=== PATIENT | female | born 1945 | race Caucasian/White ===

== ENCOUNTER → 2019-07-14 13:25 | Outpatient (CLI) | payer MEDICARE, SELFPAY ==
--- NOTE | ~2019-07-14 | DEXA_ITS ---
Bone Density Report Name: Milla Balderas Age: 73 Sex: Female Ethnicity: White Date of : 1945 Indication: postmenopausal; screening for osteoporosis; height loss; Referring Provider: PHYSICIAN NOT ON STAFF Study: Bone densitometry was performed. Exam Date: July 14, 2019 Accession number: [id number] Bone Density: Region BMD T-score Z-score Classification AP Spine (L1-L4) 1.031 -0.1 2.1 Normal Femoral Neck (Left) 0.635 -1.9 0.0 Osteopenia Total Hip (Left) 0.842 -0.8 0.8 Normal Femoral Neck (Right) 0.652 -1.8 0.2 Osteopenia Total Hip (Right) 0.894 -0.4 1.3 Normal Total Hip Mean 0.868 -0.6 1.1 Normal World Health Organization criteria for BMD impression classify patients as: Normal (T-score at or above -1.0), Osteopenia (T-score between -1.0 and -2.5), or Osteoporosis (T-score at or below -2.5). 10-year Fracture Risk(1): Major Osteoporotic Fracture 12% Hip Fracture 2.4% Reported Risk Factors: [place] (), Neck BMD=0.635, BMI=30.9 (1) FRAX(R) Version 3.08. Fracture probability calculated for an untreated patient. Fracture probability may be lower if the patient has received treatment. Previous Exams: Region Exam Age BMD T-score BMD Change BMD Change Date g/cm2 vs Baseline vs Previous AP Spine(L1-L4) 07/14/2019 73 1.031 -0.1 0.016 0.007 11/22/2014 68 1.025 -0.2 0.009 0.013 01/02/2012 66 1.012 -0.3 -0.004 -0.038* 12/23/2007 62 1.050 0.0 0.034 0.034 10/04/2002 56 1.016 -0.3 Total Hip(Left) 07/14/2019 73 0.842 -0.8 -0.095 -0.051* 11/22/2014 68 0.893 -0.4 -0.043 -0.067* 01/02/2012 66 0.960 0.1 0.024 0.063* 12/23/2007 62 0.897 -0.4 -0.039 -0.039 10/04/2002 56 0.936 0.0 Total Hip(Right) 07/14/2019 73 0.894 -0.4 -0.057 -0.020 11/22/2014 68 0.914 -0.2 -0.038 -0.057* 01/02/2012 66 0.971 0.2 0.020 0.048* 12/23/2007 62 0.924 -0.2 -0.028 -0.028 10/04/2002 56 0.952 0.1 *Denotes significance at 95% confidence level, LSC for AP Spine = 0.022 g/cm2, LSC for Total Hip = 0.027 g/cm2 Clinical Information Provided by Patient: Has used the following medications: Vitamin D Patient maximum height was 65.0 Menopause Age: 55 No regular weight bearing exercise Does not regularly consume dairy products Onse
--- NOTE | ~2019-07-14 | MM_ITS ---
EXAMINATION: MM screening [facility] BI w [place] HISTORY: Screening mammogram TECHNIQUE: Craniocaudal and mediolateral oblique 3-D tomosynthesis images were obtained and synthetic 2-D images were generated. CAD analysis was submitted and interpreted. COMPARISON: Comparison to multiple prior studies sequentially, with oldest reviewed study dated 09/2011. BREAST PARENCHYMAL COMPOSITION: There are scattered areas of fibroglandular density. FINDINGS: There is a new cluster of calcifications upper outer quadrant of the right breast. The left breast is stable without evidence for malignancy. IMPRESSION: 1. New cluster of nonspecific calcifications upper outer quadrant of the right breast. 2. Additional mammographic views and possible breast ultrasound are recommended. BI-RADS Category 0: Incomplete: Needs additional imaging evaluation. Reviewed, dictated and finalized at location D. IMPRESSION: 1. New cluster of nonspecific calcifications upper outer quadrant of the right breast. 2. Additional mammographic views and possible breast ultrasound are recommended . BI-RADS Category 0: Incomplete: Needs additional imaging evaluation.
== END ==
PROVIDERS: PCP Internal Medicine
DX: Z12.31 Encounter for screening mammogram for malignant neoplasm of breast (principal); M85.88 Other specified disorders of bone density and structure, other site; M81.0 Age-related osteoporosis without current pathological fracture; R92.8 Other abnormal and inconclusive findings on diagnostic imaging of breast; Z78.0 Asymptomatic menopausal state; M85.852 Other specified disorders of bone density and structure, left thigh; M85.851 Other specified disorders of bone density and structure, right thigh
CPT/HCPCS: 77063; 77067; 77080

== ENCOUNTER 2019-07-26 12:03 | Outpatient (CLI) | payer MEDICARE, SELFPAY ==
--- NOTE | ~2019-07-26 | MM_ITS ---
EXAMINATION: MM diagnostic mammo unilat RT HISTORY: Indeterminate right breast calcifications on screening mammogram TECHNIQUE: Additional views of the right breast were performed. CAD analysis was submitted and interp reted. COMPARISON: 07/14/2019, 09/24/2016,11/22/2014 FINDINGS: There are grouped calcifications in the middle third of the upper breast at the 12:00 locat ion approximately 7.5 cm from the nipple which appear pleomorphic in morphology. No suspicious mass o r architectural distortion is identified. IMPRESSION: 1. Suspicious right breast calcifications. 2. Stereotactic biopsy is recommended. BI-RADS category 4, suspicious findings. Reviewed, dictated and finalized at location A.
== END 2019-07-26 12:04 | disposition home or self-care (01) ==
PROVIDERS: PCP Internal Medicine
DX: R92.8 Other abnormal and inconclusive findings on diagnostic imaging of breast (principal)
CPT/HCPCS: 77065

== ENCOUNTER 2020-07-27 13:43 | Outpatient (CLI) | payer MEDICARE, SELFPAY ==
[2020-07-27 14:18] LABS: Basophils Percent Auto 0.2 % (0.2-1.2); Eosinophils Absolute Auto 0.2 K/mm3 (0-0.3); Eosinophils Percent Auto 2.1 % (0-4.4); Hematocrit 37.6 % (37.0-47.0); Hemoglobin 12.3 g/dL (12.0-15.0); Immature Granulocyte Absolute 0.02 K/mm3 (0.00-0.031); Immature Granulocyte Percent A 0.2 % (0-0.5); Lymphocytes Absolute Auto 1.65 K/mm3 (0.9-3.2); Lymphocytes Percent Auto 19.6 % (18.3-44.2); Mean Corpuscular HGB Conc 32.7 g/dl (32-36); Mean Corpuscular Hemoglobin 30.2 pg (26-34); Mean Corpuscular Volume 92.4 fl (80-100); Mean Platelet Volume 9.8 fl (7.4-10.4); Monocytes Absolute Auto 0.7 K/mm3 (0.1-0.6); Monocytes Percent Auto 8.8 % (2.6-8.5); Neutrophils Absolute Auto 5.8 K/mm3 (1.3-6.7); Neutrophils Percent Auto 69.1 % (45.5-73.1); Platelet Count Result 239 k/mm3 (150-375); Red Blood Count 4.07 M/mm3 (4.2-5.4); Red Cell Distribution Width 12.9 % (11.5-14.5); White Blood Count 8.4 K/mm3 (4.5-10.0)
[2020-07-27 14:31] LABS: Alanine Aminotransferase 20 U/L (4-35); Albumin Level 4.5 g/dL (3.5-5.1); Alkaline Phosphatase 52 U/L (38-126); Anion Gap 6 mmol/L (8-16); Aspartate Amino Transferase 31 U/L (14-36); Bilirubin,Total 0.4 mg/dL (0.2-1.3); Blood Urea Nitrogen 25 mg/dL (7-17); Calcium 9.3 mg/dL (8.4-10.2); Carbon Dioxide 31 mmol/L (22-30); Chloride 103 mmol/L (98-107); Cholesterol 141 mg/dL (0-200); Estimated Glomerular Filt Rate > 60; Glucose 84 mg/dL (65-105); HDL Direct 31 mg/dL; Potassium 5.2 mmol/L (3.4-5.0); Sodium 140 mmol/L (137-145); Triglycerides 168 mg/dL (<150)
[2020-07-27 14:42] LABS: LDL Cholesterol Direct 77 mg/dL
[2020-07-27 20:11] LABS: Folic Acid > 20.0 ng/mL (2.76->20)
[2020-07-27 21:50] LABS: Thyroid Stimulating Hormone 0.359 uIU/mL (0.465-4.680)
== END 2020-07-27 13:44 | disposition home or self-care (01) ==
PROVIDERS: PCP Internal Medicine; Referring Provider Internal Medicine Cardiovascular Disease; Visit Provider Internal Medicine
DX: E53.8 Deficiency of other specified B group vitamins (principal); R53.83 Other fatigue; E78.5 Hyperlipidemia, unspecified; I10 Essential (primary) hypertension
CPT/HCPCS: 36415; 80053; 80061; 82607; 82746; 84443; 85025

== ENCOUNTER 2021-09-12 09:37 | Outpatient (CLI) | payer MEDICARE, SELFPAY ==
[2021-09-12 09:58] LABS: Basophils Percent Auto 0.6 % (0.2-1.2); Eosinophils Absolute Auto 0.2 K/mm3 (0-0.3); Eosinophils Percent Auto 3.6 % (0-4.4); Hematocrit 38.8 % (37.0-47.0); Hemoglobin 12.4 g/dL (12.0-15.0); Immature Granulocyte Absolute 0.03 K/mm3 (0.00-0.031); Immature Granulocyte Percent A 0.6 % (0-0.5); Lymphocytes Absolute Auto 1.21 K/mm3 (0.9-3.2); Lymphocytes Percent Auto 22.7 % (18.3-44.2); Mean Corpuscular Hemoglobin 30.4 pg (26-34); Mean Corpuscular Volume 95.1 fl (80-100); Mean Platelet Volume 9.1 fl (7.4-10.4); Monocytes Absolute Auto 0.4 K/mm3 (0.1-0.6); Monocytes Percent Auto 7.3 % (2.6-8.5); Neutrophils Absolute Auto 3.5 K/mm3 (1.3-6.7); Neutrophils Percent Auto 65.2 % (45.5-73.1); Platelet Count Result 297 k/mm3 (150-375); Red Blood Count 4.08 M/mm3 (4.2-5.4); White Blood Count 5.3 K/mm3 (4.5-10.0)
[2021-09-12 10:08] LABS: Alanine Aminotransferase 20 U/L (6-35); Albumin Level 4.4 g/dL (3.5-5.1); Alkaline Phosphatase 67 U/L (38-126); Anion Gap 7 mmol/L (8-16); Aspartate Amino Transferase 32 U/L (14-36); Bilirubin,Total 0.3 mg/dL (0.2-1.3); Blood Urea Nitrogen 16 mg/dL (7-17); Calcium 8.9 mg/dL (8.4-10.2); Carbon Dioxide 26 mmol/L (22-30); Chloride 106 mmol/L (98-107); Cholesterol 150 mg/dL (0-200); Estimated Glomerular Filt Rate > 60; Glucose 103 mg/dL (65-110); HDL Direct 29 mg/dL; Potassium 4.5 mmol/L (3.4-5.0); Sodium 139 mmol/L (137-145); Triglycerides 162 mg/dL (<150)
[2021-09-12 10:19] LABS: LDL Cholesterol Direct 82 mg/dL
[2021-09-12 10:39] LABS: Thyroid Stimulating Hormone 0.904 uIU/mL (0.465-4.680)
[2021-09-12 10:49] LABS: Free T4 Free Thyroxine 1.24 ng/mL (0.78-2.19)
[2021-09-12 11:17] LABS: Folic Acid > 20.0 ng/mL (2.76->20); Vitamin B12 > 1000.0 pg/mL (239-931)
[2021-09-16 05:27] LABS: Thyroglobulin 13.4 ng/mL (2.8-40.9); Thyroglobulin Antibodies <1 IU/mL (<=1)
== END 2021-09-12 09:38 | disposition home or self-care (01) ==
LOC: ANHLAB 09:45
PROVIDERS: PCP Internal Medicine; Visit Provider Internal Medicine
DX: R79.89 Other specified abnormal findings of blood chemistry (principal); E78.5 Hyperlipidemia, unspecified; R53.83 Other fatigue; M54.9 Dorsalgia, unspecified; I10 Essential (primary) hypertension
CPT/HCPCS: 36415; 80053; 80061; 82607; 82746; 84432; 84439; 84443; 85025; 86800

== ENCOUNTER → 2023-07-01 10:27 | Outpatient (CLI) | payer MEDICARE, SELFPAY ==
--- NOTE | ~2023-07-01 | DEXA_ITS ---
Bone Density Report Name: ROBINA LEWIS Age: 77 Sex: Female Ethnicity: White Date of : 1945 Indication: postmenopausal; screening for osteoporosis; height loss; Referring Provider: Peyton Gresham Study: Bone densitometry was performed. Exam Date: July 01, 2023 Accession number: [id number] Bone Density: Region BMD T-score Z-score Classification AP Spine (L1-L4) 0.973 -0.7 1.8 Normal Femoral Neck (Left) 0.663 -1.7 0.5 Osteopenia Total Hip (Left) 0.866 -0.6 1.2 Normal Femoral Neck (Right) 0.588 -2.3 -0.2 Osteopenia Total Hip (Right) 0.834 -0.9 1.0 Normal Total Hip Mean 0.850 -0.8 1.1 Normal World Health Organization criteria for BMD impression classify patients as: Normal (T-score at or above -1.0), Osteopenia (T-score between -1.0 and -2.5), or Osteoporosis (T-score at or below -2.5). 10-year Fracture Risk(1): Major Osteoporotic Fracture 15% Hip Fracture 4.1% Reported Risk Factors: [place] (), Neck BMD=0.588, BMI=33.1 (1) FRAX(R) Version 3.08. Fracture probability calculated for an untreated patient. Fracture probability may be lower if the patient has received treatment. Previous Exams: Region Exam Age BMD T-score BMD Change BMD Change Date g/cm2 vs Baseline vs Previous AP Spine(L1-L4) 07/01/2023 77 0.973 -0.7 -0.043 -0.059* 07/14/2019 73 1.031 -0.1 0.016 0.007 11/22/2014 68 1.025 -0.2 0.009 0.013 01/02/2012 66 1.012 -0.3 -0.004 -0.038* 12/23/2007 62 1.050 0.0 0.034 0.034 10/04/2002 56 1.016 -0.3 Total Hip(Left) 07/01/2023 77 0.866 -0.6 -0.070 0.024 07/14/2019 73 0.842 -0.8 -0.095 -0.051* 11/22/2014 68 0.893 -0.4 -0.043 -0.067* 01/02/2012 66 0.960 0.1 0.024 0.063* 12/23/2007 62 0.897 -0.4 -0.039 -0.039 10/04/2002 56 0.936 0.0 Total Hip(Right) 07/01/2023 77 0.834 -0.9 -0.118 -0.060* 07/14/2019 73 0.894 -0.4 -0.057 -0.020 11/22/2014 68 0.914 -0.2 -0.038 -0.057* 01/02/2012 66 0.971 0.2 0.020 0.048* 12/23/2007 62 0.924 -0.2 -0.028 -0.028 10/04/2002 56 0.952 0.1 *Denotes significance at 95% confidence level, LSC for AP Spine = 0.022 g/cm2, LSC for Total Hip = 0.027 g/cm2 Clinical Information Provided by Patient:
== END ==
PROVIDERS: PCP Internal Medicine
DX: Z13.820 Encounter for screening for osteoporosis (principal); M85.89 Other specified disorders of bone density and structure, multiple sites; Z78.0 Asymptomatic menopausal state
CPT/HCPCS: 77080

== ENCOUNTER 2024-01-01 09:27 | Outpatient (CLI) | payer MEDICARE, SELFPAY ==
[2024-01-01 09:59] LABS: Basophils Percent Auto 0.6 % (0.2-1.2); Eosinophils Absolute Auto 0.2 K/mm3 (0-0.3); Eosinophils Percent Auto 3.4 % (0-4.4); Hematocrit 39.5 % (37.0-47.0); Hemoglobin 13.1 g/dL (12.0-15.0); Immature Granulocyte Absolute 0.02 K/mm3 (0.00-0.031); Immature Granulocyte Percent A 0.3 % (0-0.5); Lymphocytes Absolute Auto 1.17 K/mm3 (0.9-3.2); Lymphocytes Percent Auto 17.8 % (18.3-44.2); Mean Corpuscular HGB Conc 33.2 g/dl (32-36); Mean Corpuscular Hemoglobin 30.8 pg (26-34); Mean Corpuscular Volume 92.9 fl (80-100); Mean Platelet Volume 10.5 fl (7.4-10.4); Monocytes Absolute Auto 0.5 K/mm3 (0.1-0.6); Monocytes Percent Auto 7.3 % (2.6-8.5); Neutrophils Absolute Auto 4.6 K/mm3 (1.3-6.7); Neutrophils Percent Auto 70.6 % (45.5-73.1); Platelet Count Result 268 k/mm3 (150-375); Red Blood Count 4.25 M/mm3 (4.2-5.4); Red Cell Distribution Width 13.2 % (11.5-14.5); White Blood Count 6.6 K/mm3 (4.5-10.0)
[2024-01-01 10:17] LABS: Alanine Aminotransferase 24 U/L (6-35); Albumin Level 4.5 g/dL (3.5-5.1); Alkaline Phosphatase 64 U/L (38-126); Anion Gap 12 mmol/L (4-12); Aspartate Amino Transferase 31 U/L (14-36); Bilirubin,Total 0.5 mg/dL (0.2-1.3); Blood Urea Nitrogen 15 mg/dL (7-17); Calcium 9.1 mg/dL (8.4-10.2); Carbon Dioxide 23 mmol/L (22-30); Chloride 103 mmol/L (98-107); Cholesterol 139 mg/dL (0-200); Estimated Glomerular Filt Rate > 60; Glucose 115 mg/dL (65-110); HDL Direct 27 mg/dL; Potassium 4.4 mmol/L (3.4-5.0); Sodium 138 mmol/L (137-145); Triglycerides 210 mg/dL (<150)
[2024-01-01 10:28] LABS: LDL Cholesterol Direct 81 mg/dL
[2024-01-01 11:20] LABS: Folic Acid 13.3 ng/mL (2.76->20); Vitamin B12 > 1000.0 pg/mL (239-931)
== END 2024-01-01 09:28 | disposition home or self-care (01) ==
LOC: ANHLAB 09:33
PROVIDERS: PCP Internal Medicine; Visit Provider Internal Medicine
DX: E78.5 Hyperlipidemia, unspecified (principal); I10 Essential (primary) hypertension; R53.83 Other fatigue; R79.89 Other specified abnormal findings of blood chemistry
CPT/HCPCS: 36415; 80053; 80061; 82607; 82746; 83735; 84443; 85025

== ENCOUNTER 2024-02-04 13:52 | Outpatient (CLI) | payer MEDICARE, SELFPAY | END 2024-02-04 13:53 | disposition home or self-care (01) | PROVIDERS: PCP Internal Medicine | DX: R35.0 Frequency of micturition (principal) | CPT/HCPCS: 87077; 87086; 87186 ==

== ENCOUNTER 2024-04-30 10:23 | Outpatient (CLI) | payer MEDICARE, SELFPAY ==
--- NOTE | ~2024-04-30 | XR_ITS ---
XR chest 2V Ordering provider: Schuyler Mercedes, History: 78 years Female with . SHORTNESS OF BREATH ON EXERTION . Comparison: None. FINDINGS: MEDIASTINUM: The cardiac silhouette is not enlarged. LUNGS: No infiltrates, effusions or pneumothorax. Prominent bronchovascular markings in the lower lobes which may indicate early pneumonia. Follow-up a dvised. OTHER: No free air under the diaphragm. Degenerative changes of the spine. IMPRESSION: Prominent markings in the lower lobes which may indicate early pneumonia. Follow-up advised. Reviewed, dictated and finalized at location A. 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 Follo w-up advised.
[2024-04-30 11:37] LABS: NT Pro B Type Natriuretic Pept 28 pg/mL (19.9-100)
== END 2024-04-30 10:24 | disposition home or self-care (01) ==
PROVIDERS: PCP Internal Medicine; Visit Provider Internal Medicine Cardiovascular Disease
DX: E78.2 Mixed hyperlipidemia (principal); I10 Essential (primary) hypertension; R06.02 Shortness of breath; R09.89 Other specified symptoms and signs involving the circulatory and respiratory systems; R60.0 Localized edema
CPT/HCPCS: 36415; 71046; 83880

== ENCOUNTER 2024-06-28 10:52 | Outpatient (CLI) | payer MEDICARE, SELFPAY | END 2024-06-28 10:53 | disposition home or self-care (01) | PROVIDERS: PCP Internal Medicine; Visit Provider Internal Medicine | DX: R05.9 Cough, unspecified (principal) | CPT/HCPCS: 71046 ==

== ENCOUNTER 2024-11-26 20:41 | Emergency (ER) | payer MEDICARE, SELFPAY ==
--- NOTE | ~2024-11-26 | CT_ITS ---
EXAMINATION: CTA chest abdomen pelvis DATE: 11/26/2024 22:14 INDICATION: epigastric pain going to back . TECHNIQUE: Computed tomography angiography of the chest, abdomen, and pelvis was performed with 100 m L Omnipaque-350 intravenous contrast, in the arterial phase. Automated exposure control and iterative reconstruction technique were employed. The dose-length product was 657.86 mGy-cm. COMPARISON: None FINDINGS: CHEST: Thoracic aorta: No significant dilation. No dissection. Normal arch anatomy. Mild atherosclerotic manjit cification Lung parenchyma and airways: Dependent atelectasis. Scattered sub-6 mm pulmonary nodules. Patent airw ays. Thoracic inlet, axillae and chest wall: Subcentimeter thyroid hypodensities that require no additiona l evaluation at this time. No axillary lymphadenopathy. Mediastinum: No mass or lymphadenopathy. Heart and pericardium: Cardiomegaly. Mild aortic valve calcification. No pericardial effusion. Coronary artery calcifications: Mild. Pleura: No effusion or mass. Thoracic bones: No acute osseous finding in the chest. ABDOMEN/PELVIS: Liver: Enlarged. Biliary/Gallbladder: Gallbladder is distended. No inflammatory change, wall thickening, or stones. No bile duct dilation. Pancreas: No mass or duct dilation. Spleen: Normal. Adrenals:1.6 cm indeterminate density left adrenal lesion. Normal right adrenal Kidneys: Cortical thinning. Right upper pole scarring. No suspicious mass or hydronephrosis. GI tract: Small hiatal hernia. Mild distal esophageal and gastric wall edema. Small uncomplicated duo denal diverticulum. No small or large bowel dilation. Appendix not confidently visualized Diverticulo sis without diverticulitis. Mesentery/Peritoneum: No ascites, mass, or free air. Retroperitoneum: No mass Atherosclerotic calcifications of intra-abdominal arterial vessels. Retroaor tic left renal vein. Pelvis: Normal urinary bladder. Absent uterus. Bilateral ovaries not confidently identified. Soft Tissues: Small uncomplicated fat-containing umbilical hernia. Abdominopelvic bones: No acute osseous finding in the abdomen/pelvis. Severe multilevel lumbar degen erative disc disease. Lumbar scoliosis. Grade 1 anterolisthesis at L4-5. Severe central canal stenosi s at L4-5 secondary to degenerative changes. IMPRESSION: No aortic dissection or aneurysm. Scattered sub-6 mm pulmonary nodules, consider an optional low-dose noncontrast CT of the chest in on e year if the patient is at high risk. Hepatomegaly. Gallbladder hydrops without inflammatory change. May be secondary to obstruction or fasting. 1.6 cm indeterminate density left adrenal lesion, probably benign, consider 12 month follow-up adrena l CT, unless there is a history of malignancy. Mild esophagitis/gastritis. Reviewed[facility] IMPRESSION: No aortic dissection or aneurysm. Scattered sub-6 mm pulmonary nodules, consider an optional low-dose noncontrast CT of the chest in one year if the patient is at high risk. Hepatomegaly. Gallbladder hydrops without inflammatory change. May be secondary to obstructio n or fasting. 1.6 cm indeterminate density left adrenal lesion, probably benign, consider 12 month follow-up adrenal CT, unless there is a history of malignancy. Mild esophagitis/gastritis.
--- OUTSIDE RECORDS SUMMARY | 2024-11-26 20:43 | XMS_ITS | Clinical Summary ---
Author Organization 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 Medications Cholecalciferol , Vitamin D3, (VITAMIN D3) 1,000 unit Oral Tab Take 1,000 Units by mouth 2 times daily. Active ascorbic acid (VITAMIN C) 1,000 mg Oral Tab Take 1,000 mg by mouth 2 times daily. Active OTHER Juice Plus Active CYCLOSPORINE (RESTASIS OP) by Ophthalmic route daily. Active pravastatin (PRAVACHOL) 20 mg tablet TAKE 1 TABLET BY MOUTH EVERY EVENING 30 Tab 5 5 Active Active Problems Patient Care Coordination No te Formatting of this note migh t be different from the original. [place] Dr. Schuyler Mercedes Problem Noted Date Diagnosed Date Obesity, unspecified 09/04/2012 Essential hypertension, benign 08/23/2011 Hyperlipidemia Diabetes mellitus, type 2 Overview (07/05/2010): Borderline Shortness of breath Overview (07/05/2010): Exertional shortness of breath with a negative stress test in 2002. Resolved Problems Problem Noted Date Diagnosed Date Resolved Date Labile diastolic hypertension 08/23/2011 Family History Medical History Relation Name Comments Heart Surgery Father CABG in his 50 's, with repeat in his 60's, Diabetes Mother Alive Relation Name Status Comments Father (Age 75) Mother Alive Social History Tobacco Use Types Packs/Day Years Used Date Smoking Tobacco: Never Alcohol Use Standard Drinks/Week Comments Yes 0 (1 standard drink = 0.6 oz pur e alcohol) She takes alcohol rarely. 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 Not on file Not on file Not on file Last Filed Vital Signs Vital Sign Reading Time Taken Comments Blood Pressure 132/76 10/15/2013 10:24 AM CDT Pulse 83 10/15/2013 10:24 AM CDT Temperature - - Respiratory Rate 16 09/04/2012 11:18 AM CDT Oxygen Saturation 95% 09/04/2012 11:18 AM CDT Inhaled Oxygen Concentration - - Weight 87 kg (191 lb 12.8 oz) 10/15/2013 10:24 A M CDT Height 165.1 cm (5' 5) 10/15/2013 10:24 AM CDT Body Mass Index 31.92 10/15/2013 10:24 AM CDT Plan of Treatment Health Maintenance Due Date Last Done Comments DIABETES ANNUAL FOOT EXAM 1964 DIABETES ANNUAL RETINAL EXAM 1964 DIABETES MICROALBUMIN ANNUAL SCREEN 1964 DTAP/TDAP/TD VACCINES (1 - Tdap) 1965 PNEUMOCOCCAL VACCINE 50+ YEA RS (1 of 2 - PCV) 1965 ZOSTER VACCINE (1 of 2) 1996 OSTEOPOROSIS SCREENING 12/01/2011 DIABETES HBA1C Q 6 MONTHS 04/06/2014 10/05/2013 LDL CHOLESTEROL ANNUAL 10/05/2014 4, 10/05/2013, 08/24/2012, Additional history exists RSV VACCINE (60+ or ) (1 - 1-dose 75+ series) 2021 INFLUENZA VACCINE (#1) 2024 Procedures Procedure Name Priority Date/Time Associated Diagnosis Comments LIPID PANEL Routine 10/05/2013 8:32 AM CDT HEMOGLOBIN A1C Routine 10/05/2013 8:29 AM CDT from Last 3 Months or Most Recently Relevant to Health Maintenance Results * (ABNORMAL) LIPID PANEL (10/05/2013 8:32 AM CDT) CHOLESTEROL 172 125 - 200 mg/dL [facility] HDL 32(L) > OR = 46 mg/dL [facility] TRIGLYCERIDE 157(H) <150 mg/dL [facility] LDL CALCULATED 109 <130 mg/dL (calc) [facility] Comment: Desirable range <100 mg/dL for patients with CHD or diabetes and <70 mg/dL for diabetic patients with known heart disease. CHOL/HDL RATIO 5.4(H) < OR = 5.0 (calc) [facility] TOTAL NON-HDL CHOL(LDL+VLDL) 140 mg/dL (calc) [facility] Comment: Target for non-HDL cholesterol is 30 mg/dL higher than LDL cholesterol target. Test Performed at: [facility] [place] [address] JUANA LAY DO,MPH 10/05/2013 8:32 AM CDT Schuyler Mercedes MD CHEMISTRY ORDERABLES Final Res ult INTERFACE SYSTEM Refer to clinic/hospital department [facility] [address] [place] [address] * (ABNORMAL) HEMOGLOBIN A1C (10/05/2013 8:29 AM CDT) Pathologist [facility] HEMOGLOBIN A1C 6.0(H) <5.7 % of total Hgb [facility] Comment: According to ADA guidelines, hemoglobin A1c <7.0% represents optimal control in non- diabetic patients. Different metrics may apply to specific patient populations. Standards of Medical Care in Diabetes-2013. Diabetes Care. 2013;36:s11-s66 For the purpose of screening for the presence of diabetes <5.7% Consistent with the absence of diabetes 5.7-6.4% Consistent with increased risk for diabetes (prediabetes) >or=6.5% Consistent with diabetes This assay result is consistent with an increased risk of diabetes. Currently, no consensus exists for use of hemoglobin A1c for diagnosis of diabetes for children. Test Performed at: [facility] [id number] JUANA LAY DO,MPH 10/05/2013 8:29 AM CDT us Historical Provider CHEMISTRY ORDERABLES Final R esult INTERFACE SYSTEM Refer to clinic/hospital department [facility] [address] [place] [address] from Last 3 Months or Most Recently Relevant to Health Maintenance Insurance MEDICARE PART A AND B [employer] PPO Care Teams Band Machine Operator Relationship Specialty Start Date End Date Karthik Muñoz DO [address] [facility] [address] [place] [address] PCP - General Internal Medicine 07/03/10
--- OUTSIDE RECORDS SUMMARY | 2024-11-26 20:43 | XMS_ITS | Clinical Summary ---
Author Organization [facility] Address [address] [place] [address] Care Team Providers Care Bus Repair Supervisor Name Role Phone Heber Boss DO Primary Care Provider [phone] Allergies Active Allergy Reactions Criticality Noted Date Comments Lisinopril Cough Low 08/30/2019 Medications pravastatin (PRAVACHOL) 20 mg tabletIndicatio ns:hyperlipidem ia Take 1 tablet (20 mg total) by mouth nightly 5 Active fluticasone propionate (FLONASE) 50 mcg/actuation nasal sprayIndication s:Allergic Rhinitis Administer 1 spray into each nostril as needed 0 Active cyanocobalamin (Vitamin B-12) 1,000 mcg tabletIndicatio ns:Prevention of Vitamin B12 Deficiency Take 1 tablet (1,000 mcg total) by mouth every morning Active ergocalciferol, vitamin D2, (VITAMIN D2 ORAL) Take by mouth Active losartan (COZAAR) 100 mg tablet Take 1 tablet (100 mg total) by mouth daily 4 Active estradioL (Estrace) 0.01 % (0.1 mg/gram) vaginal creamIndication s:Vaginal atrophy Apply 1/4 applicator (1g) to the vagina twice weekly. 42.5 g 3 4 Active Active Problems Problem Noted Date Diagnosed Date Tubular adenoma of colon 06/07/2022 Overview (06/07/2022): 2016 12 mm sigmoid Tubular adenoma 2022 4 mm polyp removed, path not retrieved but likely Tubular adenoma Recommend repeat colonoscopy in 7 years Postoperative state 01/22/2022 Uterovaginal prolapse, incomplete 06/06/2021 Assessment & Plan (06/06/2021 5:16 PM TRASH HAULER): - she was refit with a #3 [place] at today's visit - she was previously able to remove/insert pessary independently and was encouraged to do so 1-2 times per week. May use dental floss to aid in removal, if desired. - she is interested in surgical correction, she is sexually active. Surgical handouts provided and she was encouraged to schedule follow up with Dr. Srinivasan to discuss. - she will return in 2-4 weeks for pessary check and to evaluate patient's satisfaction with support. Mixed incontinence 06/06/2021 Assessment & Plan (06/06/2021 5:13 PM TRASH HAULER): - will reassess urinary symptoms at pessary follow up as symptoms worsened after she has had the pessary out - a urine culture is being sent to rule out a UTI as contributing factor Incomplete bladder emptying 06/06/2021 Assessment & Plan (06/06/2021 5:11 PM TRASH HAULER): - normal PVR at today's visit after fit with pessary Urinary frequency 06/06/2021 Vaginal atrophy 06/06/2021 Assessment & Plan (06/06/2021 5:11 PM TRASH HAULER): - continue twice weekly vaginal estrogen Pelvic floor dysfunction 06/06/2021 Assessment & Plan (06/06/2021 5:11 PM TRASH HAULER): - we discussed having her see a PFPT to address her pelvic floor symptoms. Patient will consider and let us know if she would like to pursue. Handout on PFPT provided. Diabetes mellitus, type 2 04/11/2020 Overview (04/11/2020): Borderline Hyperlipidemia 04/11/2020 Abnormal mammogram with microcalcification 08/29 Mixed dyslipidemia 11/09/2014 Shortness of breath 11/09/2014 Overview (06/06/2021): Exertional shortness of breath with a negative stress test in 2002. Exertional shortness of breath with a negative stress test in 2002. Exertional shortness of breath with a negative stress test in 2002. Overview: Exertional shortness of breath with a negative stress test in 2002. Obesity, unspecified 09/04/2012 Asymmetrical sensorineural hearing loss 07/08/19 13 Hay fever 09/13/2011 Essential hypertension, benign 08/23/2011 Encounters Date Type Department Care Team Description 11/04/2024 10:39 AM CDT - 11/04/2024 11:59 PM CDT Hospital Encounter [facility] Advanced Medicine Breast Imaging [facility] Advanced Medicine ([facility]) [address] [place] [address] Screening mammogram, encounter for Discharge Disposition: Discharge to home or self care 10/20/2024 1:00 PM CDT Office Visit [facility] D[facility]at[facility] [address] [place] [address] [address] [place] [address] Hypertrophic scar (Primary Dx) 09/21/2024 1:30 PM CDT Procedure visit [facility] [address] [place] [address] [address] [place] [address] Basal cell carcinoma (BCC) of right lower eyelid (Primary Dx) 09/14/2024 10:00 AM CDT Procedure visit [facility] [address] [place] [address] [address] [place] [address] Jackson, Haley Lomax MD Basal cell carcinoma (BCC) of right lower eyelid (Primary Dx) from Last 3 Months Immunizations Immunization Administration Dates Next Due Moderna SARS-CoV-2 Monovalent Vaccination (12+ Y RS) 07/19/2020,06/21/2020 Surgical History Surgery Date Site/Laterality Comments BREAST BIOPSY 08/30/2019 Right COLONOSCOPY HYSTERECTOMY Medical History Medical History Date Comments Osteopenia after menopause 2014 Abnormal mammogram of right breast 08/03/2019 refer to [facility] for biopsy consultation Motion sickness Family History Medical History Relation Name Comments Diabetes Other Diabetes Mellit us - -mother (Added by TW Conv) Breast cancer Sister Anesthesia problems Neg Hx Colon cancer Neg Hx Malig Hypertension Neg Hx Malig Hyperthermia Neg Hx Ovarian cancer Neg Hx Pseudochol deficiency Neg Hx Thrombophilia Neg Hx Uterine cancer Neg Hx Relation Name Status Comments Mother Other Sister Social History Tobacco Use Types Packs/Day Years Used Date Smoking Tobacco: Never Smokeless Tobacco: Never Alcohol Use Standard Drinks/Week Comments Not Currently 0 (1 standard drink = 0.6 oz pur e alcohol) AUDIT-C Answer Date Recorded Q1: How often do you have a drink containing alc ohol? Monthly or less 12/18/2022 Average Number of Drinks Not on file 023 Frequency of Binge Drinking Not on file 11/27 Exercise Vital Sign Answer Date Recorde d On average, how many days pe r week do you engage in moderate to strenuous exercise (like a brisk walk)? 0 days 05/30/2020 On average, how many minutes do you engage in exercise at this level? 0 min 05/30/2020 Comments No Sex and Gender Information Value Date Recorded Sex Assigned at Not on file Legal Sex Female 7:24 PM TRASH HAULER Gender Identity Not on file Sexual Orientation Not on file Obstetrics History Para Term AB IAB SAB Ectopic Multiple Livin g Live Births 2 2 2 2 2 Date Outcome GA Total Labor Labor/2nd/3rd Weight Sex Type Anes PTL Lissy A1 A5 Name Clin 1973 Term F Vag-S pont Living 1975 Term M Vag-S pont Living Last Filed Vital Signs Vital Sign Reading Time Taken Comments Blood Pressure 156/82 09/14/2024 9:58 AM CDT Pulse 69 06/05/2022 11:10 AM TRASH HAULER Temperature 36.2 C (97.1 F) 06/05/2022 10:55 AM TRASH HAULER Respiratory Rate 17 06/05/2022 11:10 AM TRASH HAULER Oxygen Saturation 98% 09/14/2024 9:58 AM CDT Inhaled Oxygen Concentration - - Weight 83.9 kg (185 lb) 11/04/2024 11:06 AM CDT Height 162.6 cm (5' 4) 11/04/2024 11:06 AM CDT Body Mass Index 31.76 11/04/2024 11:06 AM CDT Plan of Treatment Health Maintenance Due Date Last Done Comments Albumin Creatinine Ratio, Urine 1945 Depression Screening 1945 Hemoglobin A1C 1945 Hepatitis C Screening 1945 Dilated Eye Exam 1945 Foot Exam 1945 Lipid Panel 1945 DTaP/Tdap/Td Vaccine (1 - Tdap) 1957 Hepatitis B Screening 1964 Pneumococcal vaccine 65+ (1 of 2 - PCV) 1965 Zoster Vaccine (1 of 2) 1996 Osteoporosis Screening-Bone Density Scan 07/13/2021 07/14/2019 Well Visit 65+ 09/14/2021 09/14/2020, 07/05/2019 eGFR 01/15/2023 01/15/2022 Fall Risk Assessment 06/05/2023 06/05/2022 Covid-19 Vaccine (3 - 2023-2 5 season) 2023 07/19/2020, 06/21/2020 Influenza Vaccine (#1) 2024 Colon Cancer Screening-CT Colonography Discontinued 06/05/2022, 11/05/2016 Colon Cancer Screening-Colonoscopy Discontinued 06/05/2022, 11/05/2016 Colon Cancer Screening-DNA Stool Discontinued 06/05/19 23, 11/05/2016 Colon Cancer Screening-FIT Discontinued 06/05/2022, Colon Cancer Screening-FOBT Discontinued 06/05/2022, 0 11/05/2016 Colon Cancer Screening-Sigmoidoscopy Discontinued 06/05/2022, 11/05/2016 Colorectal Cancer Screening Discontinued Breast Cancer Screening-Mammogram Discontinued 11/04/2024, 09/11/2023, 02/01/2022, Additional history exists Medical Devices Implanted Type Area Supervisor In Charge Device Identifier Shelf Expiration Date Model / Serial / Lot [employer] Zaina Upsylon 35.4cm Elongation Profile Lightweight Large Pore Low [id number] - [id number] Implanted:Qty: 1 on 01/22/2022 by Nadeen Srinivasan MD at [facility] Mesh N/A: Pelvis [employer] Zaina [id number] 10/25/2024 [id number] / / [id number] [employer] Tvt Prolene 45x1.1cm Tape Mesh Transvaginal Blue [id number] - [id number] Implanted:Qty: 1 on 01/22/2022 by Nadeen Srinivasan MD at [facility] Mesh Bladder [employer] 06/25/2024 [id number] / / Procedures Procedure Name Priority Date/Time Associated Diagnosis Comments SCREENING MAMMOGRAM BILATERAL W JOSE Schedule Routine, Read Routine (OP Routine) 11/04/2024 11:14 AM CDT Screening mammogram, encounter for COLONOSCOPY 06/05/2022 10:12 AM TRASH HAULER EGFR Routine 01/15/2022 2:13 PM CDT Preoperative testing HM DEXA SCAN Routine 07/14/2019 from Last 3 Months or Most Recently Relevant to Health Maintenance Results * Screening Mammogram Bilateral W Jose (11/04/2024 11:14 AM CDT) Anatomical Region Laterality Modality Breast Bilateral Mammography Impressions 11/05/2024 10:52 AM CDT Bilateral No evidence of malignancy in either breast. OVERALL BI-RADS FINAL ASSESSMENT: 1 - Negative RECOMMENDATION: Recommend bilateral annual screening mammography. Narrative 11/05/2024 10:52 AM CDT EXAMINATION: Screening Mammogram Bilateral W Jose: 11/04/2024 COMPARISON: Relevent prior studies available at the time of interpretation were reviewed, including the most recent mammogram on: 09/11/2023. TECHNIQUE: Mammography was performed with 2D and digital breast tomosynthesis (DBT) images. CAD was utilized. BREAST PARENCHYMAL COMPOSITION: There are scattered areas of fibroglandular density. FINDINGS: Bilateral There is no suspicious mass, calcification, or architectural distortion in either breast. us Self Screening Mammogram IMG MAMMO PROCEDURES Fi nal Result * COLONOSCOPY (06/05/2022 10:12 AM TRASH HAULER) Anatomical Region Laterality Modality Other Narrative Procedure Note Christi Archuleta MD - 06/05/2022 10:12 AM CST [facility] Patient Name: Milla Balderas Procedure Date: 06/05/2022 10:12 AM Date of : 1945 Admit Type: Outpatient Age: 76 Gender: Female Attending MD: Christi Archuleta M.D. Room: [facility] 4 Note Status: Finalized Procedure: Colonoscopy Indications: High risk colon cancer surveillance: Personalhistory of adenoma (10 mm or greater in size), Last colonoscopy: December 2016 Referring MD: Nadeen Srinivasan M.D. Providers: Christi Archuleta M.D., Zoie Shah M.D. Medicines: Monitored Anesthesia Care Complications: No immediate complications. Estimated Blood Loss: Estimated blood loss was minimal. Procedure: Pre-Anesthesia Assessment: - Immediately prior to administration ofmedications, the patient was re-assessed for adequacy to receive sedatives. - The risks and benefits of the procedure and the sedation options and risks were discussed with the patient. All questions were answered and informed consent was obtained. The benefits, risks and alternatives of theprocedure and sedation were discussed and informed consentwas obtained. All questions were answered. Please referto the signed informed consent document in the medical record. The scope was passed under direct vision.The CF [id number] endoscope was introduced through the anus and advanced to the cecum, identified by appendiceal orifice and ileocecal valve. Thequality of the bowel preparation was evaluated using theBBPS ([place] Bowel Preparation Scale) with scores of:Right Colon = 2 (minor amount of residual staining, small fragments of stool and/or opaque liquid, but mucosa seen well), Transverse Colon = 2 (minor amount of residual staining, small fragments of stool and/or opaque liquid, but mucosa seen well) and Left Colon= 2 (minor amount of residual staining, smallfragments of stool and/or opaque liquid, but mucosa seenwell). The total BBPS score equals 6. after washing. The quality of the bowel preparation was good. The ileocecal valve, appendiceal orifice, and rectumwere photographed. The bowel preparation used wasGoLYTELY via split dose instruction. The quality of thebowel preparation was good. Findings: A 4 mm polyp was found in the proximal ascending colon. The polyp was sessile. The polyp was removed with a cold snare. Resection and retrieval were complete. Estimated blood loss was minimal. Multiple small and large-mouthed diverticula were found in thesigmoid colon. The exam was otherwise without abnormality on direct and retroflexion views. Impression: - One 4 mm polyp in the proximal ascending colon, removed with a cold snare. Resected andretrieved. - Diverticulosis in the sigmoid colon. - The examination was otherwise normal on directand retroflexion views. Recommendation: - Patient has a contact number available for emergencies. The signs and symptoms of potential delayed complications were discussed with thepatient. Return to normal activities tomorrow. Written discharge instructions were provided to thepatient. - Continue present medications. - Await pathology results. - Repeat colonoscopy in 7-10 years for surveillance based on pathology results. - Return to referring physician as previously scheduled. Attending Participation: I was present and participated during the entire procedure, including non-reynolds portions. Electronically signed by Christi Archuleta MD Christi Archuleta M.D. 06/05/2022 10:54:32 AM . Number of Addenda: 0 Note Initiated On: 06/05/2022 10:12 AM Recognized by the [place] [employer] for promoting quality in endoscopy us Christi Archuleta MD ENDOSCOPY PROCEDURES Maria Guadalupe l Result * eGFR (01/15/2022 2:13 PM CDT) Pathologist [facility] eGFR >90 90 - 130 mL/min/1. 73 m2 KATIE PEÑALOZA Comment: Interpretive Data Reference Interval Normal >/= 90 mL/min/1.73m2 Mildly decreased* 60 - 89 mL/min/1.73m2 Mildly to moderately decreased 45 - 59 mL/min/1.73m2 Moderately to severely decreased 30 - 44 mL/min/1.73m2 Severely decreased 15 - 29 mL/min/1.73m2 Kidney Failure < 15 mL/min/1.73m2 *Relative to young adult level Estimated glomerular filtration rate is determined by the 2020 CKD-EPI equation recommended by the National Kidney Foundation (A Unifying Approach to GFR Estimation: Recommendations of the NKF-ASK Task Force on Reassessing the Inclusion of Race in Diagnosing Kidney Disease, JASN 2020). The CKD-EPI equation should not be used for patients with unstable renal function and has not been validated in children and those over 70. Current interpretive data was last reviewed 2021. Blood 01/15/2022 2:13 PM CDT 01/15/2022 2:53 PM CDT us Meghan Rowland TAX TECHNICIAN LAB BLOOD ORDERABLES Fi nal Result [facility] Department [place] [address] * DEXA SCAN (07/14/2019) Pathologist [facility] DEXA Scan Abnormal Comment:T: spine -0.1/ f nec k -1.9/Thip -0.6 FRAX Major 12%/hip 2.4% us Historical Provider HEALTH MAINTENANCE Final Result from Last 3 Months or Most Recently Relevant to Health Maintenance Insurance MEDICARE [employer] [facility] [place] [address] MEDICARE [facility] [employer] [place] [address] MEDICARE [facility] MEDICARE SUPPLEMENT Advance Directives For more information, please contact: [phone] Documents on File Type Date Recorded Patient Collection Coordinator Expl anation ADVANCE DIRECTIVE 01/22/2022 7:17 AM Power of Marketing Agent-Medical * Full Code (Latest Code Status on File) Date Activated Date Inactivated Comments 06/05/2022 9:14 AM 06/05/2022 3:41 PM * Full Code Date Activated Date Inactivated Comments 01/22/2022 3:34 PM 01/23/2022 4:48 PM Care Teams Bus Repair Supervisor Relationship Specialty Start Date End Date Heber Boss DO [address] [address] PCP - General Internal Medicine 08/19/24
--- OUTSIDE RECORDS SUMMARY | 2024-11-26 20:43 | XMS_ITS | Referral Summary ---
Author Organization [facility] Address [address] [place] [address] Care Team Providers Care Liturgical Music Director Name Role Phone Heber Boss DO Primary Care Provider [phone] Encounters Date Type Department Care Team Description 11/04/2024 10:39 AM CDT - 11/04/2024 11:59 PM CDT Hospital Encounter [facility] Advanced Medicine Breast Imaging [facility] Advanced Medicine ([facility]) [address] [place] [address] Screening mammogram, encounter for Discharge Disposition: Discharge to home or self care 10/20/2024 1:00 PM CDT Office Visit [facility]at[facility] [address] [place] [address] [address] [place] [address] Hypertrophic scar (Primary Dx) 09/21/2024 1:30 PM CDT Procedure visit [facility] [address] [place] [address] [address] [place] [address] Basal cell carcinoma (BCC) of right lower eyelid (Primary Dx) 09/14/2024 10:00 AM CDT Procedure visit [facility] [address] [place] [address] [address] [place] [address] Haley Paz MD Basal cell carcinoma (BCC) of right lower eyelid (Primary Dx) from Last 3 Months Allergies Active Allergy Reactions Criticality Noted Date [...] 06/06/2021 Assessment & Plan (06/06/2021 5:16 PM PEDIATRIC NURSE PRACTITIONER): - she was refit with a #3 [...] 06/06/2021 Assessment & Plan (06/06/2021 5:13 PM PEDIATRIC NURSE PRACTITIONER): - will reassess urinary symptoms at pessary follow up as symptoms worsened after she has had the pessary out - a urine culture is being sent to rule out a UTI as contributing factor Incomplete bladder emptying 06/06/2021 Assessment & Plan (06/06/2021 5:11 PM PEDIATRIC NURSE PRACTITIONER): - normal PVR at today's visit after fit with pessary Urinary frequency 06/06/2021 Vaginal atrophy 06/06/2021 Assessment & Plan (06/06/2021 5:11 PM PEDIATRIC NURSE PRACTITIONER): - continue twice weekly vaginal estrogen Pelvic floor dysfunction 06/06/2021 Assessment & Plan (06/06/2021 5:11 PM PEDIATRIC NURSE PRACTITIONER): - we discussed having her see a [...] Hay fever 09/13/2011 Essential hypertension, benign 08/23/2011 Immunizations Immunization Administration Dates Next Due Moderna SARS-CoV-2 Monovalent Vaccination (12+ Y RS) 07/19/2020,06/21/2020 Social History Tobacco Use Types Packs/Day Years [...] on file Legal Sex Female 7:24 PM PEDIATRIC NURSE PRACTITIONER Gender Identity Not on file Sexual Orientation Not on file Last Filed Vital Signs Vital Sign Reading Time Taken Comments Blood Pressure 156/82 09/14/2024 9:58 AM CDT Pulse 69 06/05/2022 11:10 AM PEDIATRIC NURSE PRACTITIONER Temperature 36.2 C (97.1 F) 06/05/2022 10:55 AM PEDIATRIC NURSE PRACTITIONER Respiratory Rate 17 06/05/2022 11:10 AM PEDIATRIC NURSE PRACTITIONER Oxygen Saturation 98% 09/14/2024 9:58 AM CDT Inhaled Oxygen Concentration - - Weight 83.9 kg (185 lb) 11/04/2024 11:06 AM CDT Height 162.6 cm (5' 4) 11/04/2024 11:06 AM CDT Body Mass Index 31.76 11/04/2024 11:06 AM CDT Plan of Treatment Not on file Medical Devices Implanted Type Area Advice Clerk Device Identifier Shelf Expiration Date Model / Serial / Lot [employer] Zaina Upsylon 35.4cm Elongation Profile Lightweight Large Pore Low [id number] - [id number] Implanted:Qty: 1 on 01/22/2022 by Nadeen Srinivasan MD at [facility] Mesh N/A: Pelvis [employer] Zaina [id number] 10/25/2024 [id number] / / [id number] [employer] Tvt Prolene 45x1.1cm Tape Mesh Transvaginal Blue [id number] - [id number] Implanted:Qty: 1 on 01/22/2022 by Nadeen Srinivasan MD at [facility] Mesh Bladder [employer] 06/25/2024 [id number] / / Procedures Procedure Name Priority Date/Time Associated Diagnosis Comments SCREENING MAMMOGRAM BILATERAL W JOSE Schedule Routine, Read Routine (OP Routine) 11/04/2024 11:14 AM CDT Screening mammogram, encounter for COLONOSCOPY 06/05/2022 10:12 AM PEDIATRIC NURSE PRACTITIONER EGFR Routine 01/15/2022 2:13 PM CDT Preoperative [...] nal Result * COLONOSCOPY (06/05/2022 10:12 AM PEDIATRIC NURSE PRACTITIONER) Anatomical Region Laterality Modality Other Narrative Procedure Note Christi Archuleta MD - 06/05/2022 10:12 AM CST [facility] Patient Name: Milla Balderas Procedure Date: 06/05/2022 10:12 AM Date of : 1945 Admit Type: Outpatient Age: 76 Gender: Female Attending MD: Christi Archuleta M.D. Room: [facility] ENDOSCOPY ROOM 4 Note Status: Finalized Procedure: [...] The scope was passed under direct vision.The [id number] endoscope was introduced through the anus and advanced to the cecum, identified by appendiceal orifice and ileocecal valve. Thequality of the bowel preparation was evaluated using theBBPS ([place] Bowel Preparation Scale) with scores of:Right Colon [...] On: 06/05/2022 10:12 AM Recognized by the [place] [employer] for promoting quality in endoscopy us Christi Archuleta MD ENDOSCOPY PROCEDURES Maria Guadalupe l Result * eGFR (01/15/2022 2:13 PM CDT) Pathologist [facility] eGFR >90 90 - 130 mL/min/1. 73 m2 [facility] Comment: Interpretive Data Reference Interval Normal >/= [...] 2:13 PM CDT 01/15/2022 2:53 PM CDT Meghan Rowland NP LAB BLOOD ORDERABLES Fi nal Result [facility] Department [place] [address] * DEXA SCAN (07/14/2019) Pathologist [facility] DEXA Scan Abnormal Comment:T: spine -0.1/ f nec k -1.9/Thip -0.6 FRAX Major 12%/hip 2.4% Historical Provider HEALTH MAINTENANCE Final Result from Last 3 Months or Most Recently Relevant to Health Maintenance Insurance [place] [id number] MEDICARE [facility] MEDICARE [facility] [place] [address] MEDICARE [facility] MEDICARE SUPPLEMENT Advance Directives For more information, please contact: [phone] Documents on File Type Date Recorded Patient Hand Iii Cutter Expl anation ADVANCE DIRECTIVE 01/22/2022 7:17 AM Power of Transmission Inspector-Medical * Full Code (Latest Code Status on File) Date Activated Date Inactivated Comments 06/05/2022 9:14 AM 06/05/2022 3:41 PM * Full Code Date Activated Date Inactivated Comments 01/22/2022 3:34 PM 01/23/2022 4:48 PM Care Teams Liturgical Music Director Relationship Specialty Start Date End Date Heber Boss DO [address] [address] PCP - General Internal Medicine 08/19/24
--- OUTSIDE RECORDS SUMMARY | 2024-11-26 20:43 | XMS_ITS | Clinical Summary ---
Author Organization [facility] Address [address] [place] [address] Care Team Providers Care Geodesist Name Role Phone Karthik Muñoz DO Primary Care Provider [phone] Source Comments [facility],non-owned Affiliates and Associated Physician Practices is amultiple site organization consisting of ambulatory clinics and hospital sitesin [place], [place], [place] and [place]. This disclosure is being madepursuant to the Care Everywhere program and may not contain all information available regarding this patient. Last updated 18.[facility] Allergies Active Allergy Reactions Criticality Noted Date Comments Lisinopril Cough Simvastatin Unknown Medications * Be aware that medications may not be up to date on this document. Alwaysverify current medications with the patient. Cholecalciferol (VITAMIN D-3) 1000 UNITS CAPS Take 1,000 Units by mouth 2 times daily Active vitamin C (ASCORBIC ACID) 1000 MG TABS tablet Take 1,000 mg by mouth 2 times daily Active losartan (COZAAR) 50 MG tablet Take 50 mg by mouth once daily Active pravastatin (PRAVACHOL) 20 MG tablet Take 1 tablet by mouth at bedtime 90 tablet 3 01/18/2020 Active Apoaequorin (PREVAGEN PO) Active Active Problems Problem Noted Date Diagnosed Date Mixed dyslipidemia 11/09/2014 Shortness of breath 11/09/2014 Overview (11/09/2014): Overview: Exertional shortness of breath with a negative stress test in 2002. Hypertension, essential 08/23/2011 Resolved Problems Problem Noted Date Diagnosed Date Resolved Date Obesity 09/04/2012 02/17/2020 Family History Medical History Relation Name Comments Heart Surgery Father CABG in his 50 's, with repeat in his 60's, Diabetes Mother Relation Name Status Comments Father Mother Social History Tobacco Use Types Packs/Day Years Used Date Smoking Tobacco: Never Alcohol Use Standard Drinks/Week Comments Yes 0 (1 standard drink = 0.6 oz pur e alcohol) Rare Comments Unknown Sex and Gender Information Value Date Recorded Sex Assigned at Not on file Legal Sex Female 12:11 PM CDT Gender Identity Not on file Sexual Orientation Not on file Last Filed Vital Signs Vital Sign Reading Time Taken Comments Blood Pressure 136/71 02/17/2020 11:37 AM CDT Pulse 79 02/17/2020 11:37 AM CDT Temperature - - Respiratory Rate - - Oxygen Saturation 97% 02/17/2020 11:37 AM CDT Inhaled Oxygen Concentration - - Weight 71.2 kg (157 lb) 02/17/2020 11:37 AM CDT Height 162.6 cm (5' 4) 02/17/2020 11:37 AM CDT Body Mass Index 26.95 02/17/2020 11:37 AM CDT Plan of Treatment Health Maintenance Due Date Last Done Comments BONE DENSITY TESTING 1945 HEPATITIS C SCREENING 11/25/1964 DTAP/TDAP/TD VACCINES (1 - Tdap) 1965 PNEUMOCOCCAL VACCINE 50+ (1 of 1 - PCV) 1996 ZOSTER VACCINE (1 of 2) 1996 Respiratory Syncytial Virus (RSV) Vaccine Pt: or over 60 yrs (1 - 1-dose 75+ series) 2021 COVID-19 VACCINE ( - 2023-2 5 season) 2023 DEPRESSION SCREENING 04/28/2024 INFLUENZA VACCINE (#1) 2024 HEPATITIS B VACCINE Aged Out No longe r eligible based on patient's age to complete this topic HIB VACCINE Aged Out No longer eligi ble based on patient's age to complete this topic HPV VACCINE Aged Out No longer eligi ble based on patient's age to complete this topic MENINGOCOCCAL (Group B) VACC INE SHARED DECISION-MAKING Aged Out No longer eligibl e based on patient's age to complete this topic MENINGOCOCCAL GROUPS A/C/Y/W VACCINE Aged Out No longer eligible b ased on patient's age to complete this topic Insurance MEDICARE [facility] Care Teams Geodesist Relationship Specialty Start Date End Date Karthik Muñoz DO [address] [facility] [address] [place] [address] PCP - General Internal Medicine 11/13/12
[2024-11-26 20:49] VITALS: BP 170/83; PULSE 89; RESP 20; TEMP 36.4; O2SAT 96
[2024-11-26] MEDS: PANTOPRAZOLE SODIUM IV 40 MG VIAL IV PUSH (21:29)
[2024-11-26] MEDS: ONDANSETRON INJ 4 MG/2 ML VIAL IV PUSH (21:29)
[2024-11-26 21:30] VITALS: BP 167/79; PULSE 88; RESP 21; O2SAT 98
[2024-11-26 21:36] LABS: Hematocrit 40.1 % (37.0-47.0); Hemoglobin 12.8 g/dL (12.0-15.0); Immature Granulocyte Percent A 0.2 % (0-0.5); Lymphocytes Absolute Auto 0.92 K/mm3 (0.9-3.2); Mean Corpuscular HGB Conc 31.9 g/dl (32-36); Mean Corpuscular Hemoglobin 30.3 pg (26-34); Mean Corpuscular Volume 95.0 fl (80-100); Nucleated Red Blood Cells Absolute Auto 0.000 K/mm3 (0.0-0.012); Nucleated Red Blood Cells Perc 0.0 % (0.0-0.2); Platelet Count Result 246 k/mm3 (150-375); Red Blood Count 4.22 M/mm3 (4.2-5.4); White Blood Count 10.0 K/mm3 (4.5-10.0)
--- NOTE | 2024-11-26 21:36 | ECG_ITS ---
Test Date: 2024-11-26 22:24:06 Measurements Intervals [place] Rate: 92 P: 11 MN: 178 QRS: -24 QRSD: 101 T: -9 QT: 359 QTc: 446 Interpretive Statements SINUS RHYTHM POSSIBLE ANTERIOR MYOCARDIAL INFARCTION , PROBABLY OLD INFERIOR INFARCT, AGE INDETERMINATE BASELINE ARTIFACT- I, II, III, AVR, AVL, AVF ABNORMAL ECG No previous ECG available for comparison Electronically Signed On 11-27-2024 07:37:19 CDT by Leonides Cuello D.O.
[2024-11-26 21:51] LABS: Alanine Aminotransferase 29 U/L (6-35); Albumin Level 4.7 g/dL (3.5-5.1); Alkaline Phosphatase 67 U/L (38-126); Anion Gap 9 mmol/L (4-12); Aspartate Amino Transferase 39 U/L (14-36); Bilirubin,Total 0.4 mg/dL (0.2-1.3); Blood Urea Nitrogen 23 mg/dL (7-17); Calcium 9.3 mg/dL (8.4-10.2); Carbon Dioxide 25 mmol/L (22-30); Chloride 102 mmol/L (98-107); Estimated CRCL calculation 65 ml/min; Estimated Glomerular Filt Rate > 60; Glucose 134 mg/dL (65-110); Lipase 162 U/L (23-300); Potassium 4.0 mmol/L (3.4-5.0); Sodium 136 mmol/L (137-145); Total Protein 8.0 g/dL (6.3-8.2)
--- OUTSIDE RECORDS SUMMARY | 2024-11-26 21:53 | XMS_ITS | Clinical Summary ---
Author Organization [facility] Address [address] [place] [place] [address] Care Team Providers Care Wood Barker Name Role Phone ElisKarthik johnson Primary Care Provider [phone] Allergies Active Allergy Reactions Criticality Noted Date [...] migh t be different from the original. Sheet Heater Dr. 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 HDL 32(L) > OR = 46 mg/dL [facility] TRIGLYCERIDE 157(H) <150 mg/dL [facility] LDL CALCULATED 109 <130 mg/dL (calc) [facility] Comment: Desirable range <100 mg/dL for patients with CHD or diabetes and <70 mg/dL for diabetic patients with known heart disease. CHOL/HDL RATIO 5.4(H) < OR = 5.0 (calc) [facility] TOTAL NON-HDL CHOL(LDL+VLDL) 140 mg/dL (calc) [facility] Comment: Target for non-HDL cholesterol is 30 mg/dL higher than LDL cholesterol target. Test Performed at: [employer] [facility] [place] [address] JUANA LAY DO,MPH 10/05/2013 8:32 AM CDT Schuyler Mercedes MD CHEMISTRY ORDERABLES Final Res ult INTERFACE SYSTEM Refer to clinic/hospital department [facility] [address] [place] [address] * (ABNORMAL) HEMOGLOBIN A1C (10/05/2013 8:29 AM CDT) Pathologist [facility] HEMOGLOBIN A1C 6.0(H) <5.7 % of total Hgb [facility] Comment: According to ADA guidelines, hemoglobin A1c [...] of diabetes for children. Test Performed at: [employer] [facility] [facility] [address] JUANA LAY DO,MPH 10/05/2013 8:29 AM CDT us Historical Provider CHEMISTRY ORDERABLES Final R esult INTERFACE SYSTEM Refer to clinic/hospital department [facility] [address] [place] [address] from Last 3 Months or Most Recently Relevant to Health Maintenance Insurance MEDICARE PART A AND B [id number]/[id number] PPO Care Teams Wood Barker Relationship Specialty Start Date End Date Karthik Muñoz DO [address] [facility] [address] [place] [address] PCP - General Internal Medicine 07/03/10
--- OUTSIDE RECORDS SUMMARY | 2024-11-26 21:53 | XMS_ITS | Clinical Summary ---
Author Organization [facility] Address [address] [place] [address] Care Team Providers Care Briar Cutter Name Role Phone Heber Boss DO Primary Care Provider [phone] Allergies Active Allergy Reactions Criticality Noted Date [...] 06/06/2021 Assessment & Plan (06/06/2021 5:16 PM DANCE INSTRUCTOR): - she was refit with a #3 [...] 06/06/2021 Assessment & Plan (06/06/2021 5:13 PM DANCE INSTRUCTOR): - will reassess urinary symptoms at pessary follow up as symptoms worsened after she has had the pessary out - a urine culture is being sent to rule out a UTI as contributing factor Incomplete bladder emptying 06/06/2021 Assessment & Plan (06/06/2021 5:11 PM DANCE INSTRUCTOR): - normal PVR at today's visit after fit with pessary Urinary frequency 06/06/2021 Vaginal atrophy 06/06/2021 Assessment & Plan (06/06/2021 5:11 PM DANCE INSTRUCTOR): - continue twice weekly vaginal estrogen Pelvic floor dysfunction 06/06/2021 Assessment & Plan (06/06/2021 5:11 PM DANCE INSTRUCTOR): - we discussed having her see a [...] - 11/04/2024 11:59 PM CDT Hospital Encounter [facility] Advanced Medicine Breast Imaging [facility] Advanced Medicine ([facility]) [address] [place] [address] Screening mammogram, encounter for Discharge Disposition: Discharge to home or self care 10/20/2024 1:00 PM CDT Office Visit [facility] [address] [place] [address] [address] [place] [address] Hypertrophic scar (Primary Dx) 09/21/2024 1:30 PM CDT Procedure visit [facility] [address] [place] [address] [address] [place] [address] Basal cell carcinoma (BCC) of right lower eyelid (Primary Dx) 09/14/2024 10:00 AM CDT Procedure visit [facility] [address] [place] [address] [address] [place] [address] Jackson, Haley Lomax MD Basal cell carcinoma [...] on file Legal Sex Female 7:24 PM DANCE INSTRUCTOR Gender Identity Not on file Sexual Orientation [...] AM CDT Pulse 69 06/05/2022 11:10 AM DANCE INSTRUCTOR Temperature 36.2 C (97.1 F) 06/05/2022 10:55 AM DANCE INSTRUCTOR Respiratory Rate 17 06/05/2022 11:10 AM DANCE INSTRUCTOR Oxygen Saturation 98% 09/14/2024 9:58 AM CDT [...] history exists Medical Devices Implanted Type Area Senior Attorney Device Identifier Shelf Expiration Date Model / Serial / Lot [employer] Zaina Upsylon 35.4cm Elongation Profile Lightweight Large Pore Low [id number] - [id number] Implanted:Qty: 1 on 01/22/2022 by Nadeen Srinivasan MD at [facility] Mesh N/A: Pelvis [employer] Zaina [id number] 10/25/2024 [id number] / / [id number] [employer] Tvt Prolene 45x1.1cm Tape Mesh Transvaginal Blue [id number] - [id number] Implanted:Qty: 1 on 01/22/2022 by Nadeen Srinivasan MD at [facility] Mesh Bladder [employer] 06/25/2024 [id number] / / Procedures Procedure Name Priority Date/Time Associated Diagnosis Comments SCREENING MAMMOGRAM BILATERAL W JOSE Schedule Routine, Read Routine (OP Routine) 11/04/2024 11:14 AM CDT Screening mammogram, encounter for COLONOSCOPY 06/05/2022 10:12 AM DANCE INSTRUCTOR EGFR Routine 01/15/2022 2:13 PM CDT Preoperative [...] nal Result * COLONOSCOPY (06/05/2022 10:12 AM DANCE INSTRUCTOR) Anatomical Region Laterality Modality Other Narrative Procedure Note Christi Archuleta MD - 06/05/2022 10:12 AM CST [facility] Patient Name: Milla Balderas Procedure Date: 06/05/2022 10:12 AM Date of : 1945 Admit Type: Outpatient Age: 76 Gender: Female Attending MD: Christi Archuleta M.D. Room: [facility] ENDOSCOPY ROOM 4 Note Status: Finalized Procedure: [...] scope was passed under direct vision.The CF [id number] endoscope was introduced through the anus and advanced to the cecum, identified by appendiceal orifice and ileocecal valve. Thequality of the bowel preparation was evaluated using theBBPS ([place] Bowel Preparation Scale) with scores of:Right Colon [...] On: 06/05/2022 10:12 AM Recognized by the [place] [employer]intestinal Endoscopy for promoting quality [...] 01/15/2022 2:53 PM CDT us Meghan Rowland TELEMARKETING SALES REPRESENTATIVE LAB BLOOD ORDERABLES Fi nal Result [facility] [address] [facility] Department [place] [address] * DEXA SCAN (07/14/2019) Pathologist [facility] DEXA Scan Abnormal Comment:T: spine -0.1/ f nec k -1.9/Thip -0.6 FRAX Major 12%/hip 2.4% us Historical Provider HEALTH MAINTENANCE Final Result from Last 3 Months or Most Recently Relevant to Health Maintenance Insurance MEDICARE [facility] [address] MEDICARE [facility] [place] [address] MEDICARE [facility] MEDICARE SUPPLEMENT Advance Directives For more information, please contact: [phone] Documents on File Type Date Recorded Patient Crate Icer Expl anation ADVANCE DIRECTIVE 01/22/2022 7:17 AM Power of Development Specialist-Medical * Full Code (Latest Code Status on File) Date Activated Date Inactivated Comments 06/05/2022 9:14 AM 06/05/2022 3:41 PM * Full Code Date Activated Date Inactivated Comments 01/22/2022 3:34 PM 01/23/2022 4:48 PM Care Teams Briar Cutter Relationship Specialty Start Date End Date Heber Boss DO [address] [address] PCP - General Internal Medicine 08/19/24
--- OUTSIDE RECORDS SUMMARY | 2024-11-26 21:53 | XMS_ITS | Clinical Summary ---
Author Organization [facility] Private Practice Address [address] [place] [address] Care Team Providers Care Nascar Pit Crew Person Name Role Phone Karthik Muñoz DO Primary Care Provider Source Comments [facility] Private [facility],non-owned Affiliates and Associated Physician Practices is amultiple site organization consisting of ambulatory clinics and hospital sitesin [place], [place], [place] and [place]. This disclosure is being madepursuant to the Care Everywhere program and may not contain all information available regarding this patient. Last updated 18.[facility] Allergies Active Allergy Reactions Criticality Noted Date [...] age to complete this topic Insurance MEDICARE [facility] Care Teams Nascar Pit Crew Person Relationship Specialty Start Date End Date Karthik Muñoz DO [address] [facility] [address] [place] [address] PCP - General Internal Medicine 11/13/12
--- OUTSIDE RECORDS SUMMARY | 2024-11-26 21:53 | XMS_ITS | Referral Summary ---
Author Organization [facility] Address [address] [place] [address] Care Team Providers Care Plans Examiner Name Role Phone Heber Boss DO Primary Care Provider [phone] Encounters Date Type Department Care Team Description 11/04/2024 10:39 AM CDT - 11/04/2024 11:59 PM CDT Hospital Encounter [facility] Advanced Medicine Breast Imaging [facility] Advanced Medicine ([facility]) [address] [place] [address] Screening mammogram, encounter for Discharge Disposition: Discharge to home or self care 10/20/2024 1:00 PM CDT Office Visit [facility] [address] [place] [address] [address] [place] [address] Hypertrophic scar (Primary Dx) 09/21/2024 1:30 PM CDT Procedure visit [facility] [address] [place] [address] [address] [place] [address] Basal cell carcinoma (BCC) of right lower eyelid (Primary Dx) 09/14/2024 10:00 AM CDT Procedure visit [facility] [address] [place] [address] [address] [place] [address] Haley Paz MD Basal cell carcinoma [...] 06/06/2021 Assessment & Plan (06/06/2021 5:16 PM POULTRY HUSBANDRY TEACHER): - she was refit with a #3 [...] 06/06/2021 Assessment & Plan (06/06/2021 5:13 PM POULTRY HUSBANDRY TEACHER): - will reassess urinary symptoms at pessary follow up as symptoms worsened after she has had the pessary out - a urine culture is being sent to rule out a UTI as contributing factor Incomplete bladder emptying 06/06/2021 Assessment & Plan (06/06/2021 5:11 PM POULTRY HUSBANDRY TEACHER): - normal PVR at today's visit after fit with pessary Urinary frequency 06/06/2021 Vaginal atrophy 06/06/2021 Assessment & Plan (06/06/2021 5:11 PM POULTRY HUSBANDRY TEACHER): - continue twice weekly vaginal estrogen Pelvic floor dysfunction 06/06/2021 Assessment & Plan (06/06/2021 5:11 PM POULTRY HUSBANDRY TEACHER): - we discussed having her see a [...] on file Legal Sex Female 7:24 PM 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 HUSBANDRY TEACHER Gender Identity Not on file Sexual Orientation Not on file Last Filed Vital Signs Vital Sign Reading Time Taken Comments Blood Pressure 156/82 09/14/2024 9:58 AM CDT Pulse 69 06/05/2022 11:10 AM POULTRY HUSBANDRY TEACHER Temperature 36.2 C (97.1 F) 06/05/2022 10:55 AM POULTRY HUSBANDRY TEACHER Respiratory Rate 17 06/05/2022 11:10 AM POULTRY HUSBANDRY TEACHER Oxygen Saturation 98% 09/14/2024 9:58 AM CDT Inhaled Oxygen Concentration - - Weight 83.9 kg (185 lb) 11/04/2024 11:06 AM CDT Height 162.6 cm (5' 4) 11/04/2024 11:06 AM CDT Body Mass Index 31.76 11/04/2024 11:06 AM CDT Plan of Treatment Not on file Medical Devices Implanted Type Area Chefs Device Identifier Shelf Expiration Date Model / Serial / Lot [employer] Zaina Upsylon 35.4cm Elongation Profile Lightweight Large Pore Low [id number] - [id number] Implanted:Qty: 1 on 01/22/2022 by Nadeen Srinivasan MD at [facility] Mesh N/A: Pelvis [employer] Zaina [id number] 10/25/2024 [id number] / / [id number] [employer] Tvt Prolene 45x1.1cm Tape Mesh Transvaginal Blue [id number] - [id number] Implanted:Qty: 1 on 01/22/2022 by Nadeen Srinivasan MD at [facility] Mesh Bladder [employer] 06/25/2024 [id number] / / Procedures Procedure Name Priority Date/Time Associated Diagnosis Comments SCREENING MAMMOGRAM BILATERAL W JOSE Schedule Routine, Read Routine (OP Routine) 11/04/2024 11:14 AM CDT Screening mammogram, encounter for COLONOSCOPY 06/05/2022 10:12 AM POULTRY HUSBANDRY TEACHER EGFR Routine 01/15/2022 2:13 PM CDT Preoperative [...] nal Result * COLONOSCOPY (06/05/2022 10:12 AM POULTRY HUSBANDRY TEACHER) Anatomical Region Laterality Modality Other Narrative Procedure [...] The scope was passed under direct vision.The [id number] endoscope was introduced through the anus and advanced to the cecum, identified by appendiceal orifice and ileocecal valve. Thequality of the bowel preparation was evaluated using theBBPS ([place] Bowel Preparation Scale) with scores of:Right Colon [...] On: 06/05/2022 10:12 AM Recognized by the [place] [employer]intestinal Endoscopy for promoting quality in endoscopy us Christi Archuleta MD ENDOSCOPY PROCEDURES Maria Guadalupe l Result * eGFR (01/15/2022 2:13 PM CDT) Pathologist [facility] eGFR >90 90 - 130 mL/min/1. 73 m2 [facility] Comment: Interpretive Data Reference Interval Normal >/= [...] NP LAB BLOOD ORDERABLES Fi nal Result [facility] One [facility] Department [place] [address] * DEXA SCAN (07/14/2019) Pathologist [facility] DEXA Scan Abnormal Comment:T: spine -0.1/ f nec k -1.9/Thip -0.6 FRAX Major 12%/hip 2.4% Historical Provider HEALTH MAINTENANCE Final Result from Last 3 Months or Most Recently Relevant to Health Maintenance Insurance [place] [id number] MEDICARE [facility] MEDICARE [facility] [place] [address] MEDICARE [facility] MEDICARE SUPPLEMENT Advance Directives For more information, please contact: [phone] Documents on File Type Date Recorded Patient Hospital Cook Expl anation ADVANCE DIRECTIVE 01/22/2022 7:17 AM Power of Research Analyst-Medical * Full Code (Latest Code Status on File) Date Activated Date Inactivated Comments 06/05/2022 9:14 AM 06/05/2022 3:41 PM * Full Code Date Activated Date Inactivated Comments 01/22/2022 3:34 PM 01/23/2022 4:48 PM Care Teams Plans Examiner Relationship Specialty Start Date End Date Heber Boss DO [address] [address] PCP - General Internal Medicine 08/19/24
[2024-11-26 22:00] VITALS: BP 152/72; PULSE 88; RESP 15; O2SAT 97
[2024-11-26 22:27] VITALS: BP 154/83; PULSE 96; RESP 22; O2SAT 95
--- NOTE | 2024-11-26 23:42 | ED.ABDPAIN ---
HPI - Abdominal Pain General Chief Complaint: Abdominal Pain Stated Complaint: abd pain Time Seen by Provider: 11/26/24 21:13 History of Present Illness HPI narrative: Patient here with epigastric abdominal pain radiating to her back, nausea and vomiting, started few hours after she ate some fried fish. No focal numbness or weakness, has not had symptoms like this before. Related Data Home Medications ?Medication ?Instructions ?Recorded ?Confirmed ?Last Taken ?Type ascorbic acid (vitamin C) 500 mg mg PO 03/30/19 06/28/24 Unknown History capsule cholecalciferol (vitamin D3) 25 1,000 unit PO DAILY 03/30/19 06/28/24 Unknown History mcg (1,000 unit) capsule pravastatin 20 mg tablet 20 mg PO DAILY 03/30/19 06/28/24 Unknown History Allergies Allergy/AdvReac Type Severity Reaction Status Date / Time No Known Allergies Allergy Verified 06/28/24 10:17 Review of Systems Review of Systems: All systems reviewed & are unremarkable except as noted in HPI and below PMFSH Past Medical History Medical History Mammogram abnormal Surgical History Surgical History History of hysterectomy Family History Family History Mother Hypertension, Onset Age: 92 Social History Social History Smoking status: Never smoker Second hand tobacco smoke exposure: No Alcohol intake: never Lack of Transportation: No Lack of Food: Never True Current Housing: I Have Housing Concerned About Future Housing: No Difficulty Paying Gas/Electric Bills: No Difficulty Paying for Meds: No Currently Unemployed: No Education: Associate Degree Difficulty w/ Childcare or Family Care: No Exam Narrative: EXAMINATION OF ORGAN SYSTEMS/BODY AREAS: Constitutional: Vital signs per nursing GENERAL: Appears slightly uncomfortable HEAD: Normal with no signs of head trauma. EYES: EOMI, conjunctiva normal ENT: Hearing grossly intact LUNGS: Nonlabored breathing. HEART: [Regular rate and rhythm], normal radial and DP pulses bilaterally ABD: [Soft], [nontender to palpation] EXT: Normal range of motion SKIN: [No rashes or lesions.] NEURO: [Alert and oriented x 3. No gross focal sensory or strength deficits.] PSYCH: Normal affect Course Vital Signs Vital signs: Vital Signs Temperature 97.6 F 11/26/24 20:49 Pulse Rate 89 11/26/24 20:49 Respiratory Rate 20 11/26/24 20:49 Blood Pressure 170/83 H 11/26/24 20:49 Pulse Oximetry 96 11/26/24 20:49 Oxygen Delivery Room Air 11/26/24 20:49 Temperature 97.6 F 11/26/24 20:49 Pulse Rate 96 11/26/24 22:27 Respiratory Rate 22 H 11/26/24 22: Blood Pressure 154/83 H 11/26/24 22: Pulse Oximetry 95 11/26/24 22: Oxygen Delivery Room Air 11/26/24 20:49 MDM - Abdominal Pain MDM Narrative Medical decision making narrative: Electronic medical record was reviewed. Patient presented to the ED with complaint of [abdominal pain radiating to her back after eating fried fish and vomiting]. Vitals [were within acceptable limits]. Physical exam revealed soft abdomen with some minimal tenderness to epigastric abdomen. Based on the patient's history and physical exam, my differential includes but is not limited to [gastritis, gastroenteritis, cholecystitis, pancreatitis, dissection]. [IV access was established by nursing staff. Patient was given zofran, Protonix]. CBC, BMP, lipase, LFTs, bilirubin and alk phos were obtained. Labs were pertinent for essential normal labs. [Decision was made to obtain a CTA-chest abdomen pelvis to evaluate for acute abdominal process. CT showing esophagitis, gastritis, some lung nodules.] On reevaluation, the patient states that they are feeling much better. Symptoms essentially resolved. There were no witnessed episodes of vomiting in the emergency department. They are not complaining of any new abdominal pain. Repeat examination did not show any significant guarding or rebound. No new tenderness. At this time I do not feel there is any further emergent treatment to be provided. The patient was given strict return precautions, if they are to develop any worsening abdominal pain, vomiting, or blood in the vomit they are to return to the emergency department immediately. Patient verbally acknowledges understanding these directions. [The patient was informed of the above diagnostic test findings including the pulmonary nodules and gastritis/esophagitis.] They will be discharged home [with prescriptions]. They were advised to follow-up with GI in 2 days. The patient feels that this is appropriate medical decision making and verbalizes an understanding of the discharge instructions. Lab Data 11/26/24 21:29 11/26/24 21:29 Labs: Lab Results 11/26/24 Range/Units 21:29 WBC 10.0 (4.5-10.0) K/mm3 RBC 4.22 (4.2-5.4) M/mm3 Hgb 12.8 (12.0-15.0) g/dL Hct 40.1 (37.0-47.0) % MCV 95.0 (80-100) fl MCH 30.3 (26-34) pg MCHC 31.9 L (32-36) g/dl RDW 12.9 (11.5-14.5) % Plt Count 246 (150-375) k/mm3 MPV 10.2 (7.4-10.4) fl Immature Gran % (Auto) 0.2 (0-0.5) % Neut % (Auto) 83.9 H (45.5-73.1) % Lymph % (Auto) 9.2 L (18.3-44.2) % Whiteside % (Auto) 5.2 (2.6-8.5) % Eos % (Auto) 1.2 (0-4.4) % Baso % (Auto) 0.3 (0.2-1.2) % Lymph # (Auto) 0.92 (0.9-3.2) K/mm3 Whiteside # (Auto) 0.5 (0.1-0.6) K/mm3 Eos # (Auto) 0.1 (0-0.3) K/mm3 Baso # (Auto) 0.0 (0.0-0.1) K/mm3 Abs Immat Gran (auto) 0.02 (0.00-0.031) K/mm3 Absolute Neuts (auto) 8.4 H (1.3-6.7) K/mm3 Absolute Nucleated RBC 0.000 (0.0-0.012) K/mm3 Nucleated RBC % 0.0 (0.0-0.2) % Sodium 136 L (137-145) mmol/L Potassium 4.0 (3.4-5.0) mmol/L Chloride 102 (98-107) mmol/L Carbon Dioxide 25 (22-30) mmol/L Anion Gap 9 (4-12) mmol/L BUN 23 H (7-17) mg/dL Creatinine 0.67 L (0.7-1.0) mg/dL Estim Creat Clear Calc 65 ml/min Estimated GFR > 60 (59 - ) Glucose 134 H (65-110) mg/dL Calcium 9.3 (8.4-10.2) mg/dL Total Bilirubin 0.4 (0.2-1.3) mg/dL AST 39 H (14-36) U/L ALT 29 (6-35) U/L Alkaline Phosphatase 67 (38-126) U/L Total Protein 8.0 (6.3-8.2) g/dL Albumin 4.7 (3.5-5.1) g/dL Lipase 162 (23-300) U/L Imaging Data Radiologist's impression: ITS Impressions Chest/Abdomen/Pelvis CTA 11/26/24 22:19 IMPRESSION: No aortic dissection or aneurysm. Scattered sub-6 mm pulmonary nodules, consider an optional low-dose noncontrast CT of the chest in one year if the patient is at high risk. Hepatomegaly. Gallbladder hydrops without inflammatory change. May be secondary to obstruction or fasting. 1.6 cm indeterminate density left adrenal lesion, probably benign, consider 12 month follow-up adrenal CT, unless there is a history of malignancy. Mild esophagitis/gastritis. Discharge Plan Discharge Clinical Impression: Esophagitis Patient Disposition: Home Condition: Stable Instructions: Abdominal Pain (ED), Pulmonary Nodules (ED), Esophagitis (ED) Additional Instructions: Please follow up with the GI specialist; you can always return for any further issues. Patient Language: Spanish Prescriptions: New famotidine 20 mg tablet 20 mg PO DAILY Qty: 30 0RF pantoprazole [Protonix] 40 mg tablet,delayed release (DR/EC) 40 mg PO HS 28 Days Qty: 28 0RF ondansetron 4 mg tablet,disintegrating 4 mg PO Q8H PRN (Reason: nausea and vomiting) Qty: 10 0RF No Action prednisone 5 mg tablet 5 mg PO DIRECTED Qty: 21 0RF Rx Instructions: 6 po today, decreasing dose by one tablet daily until gone. pravastatin 20 mg tablet 20 mg PO DAILY ascorbic acid (vitamin C) 500 mg capsule PO cholecalciferol (vitamin D3) 1,000 unit capsule 1,000 unit PO DAILY losartan 50 mg tablet 50 mg PO DAILY Qty: 90 3RF fluticasone propionate 50 mcg/actuation spray,suspension 2 spray NASAL DAILY PRN (Reason: nasal congestion) Qty: 15.8 5RF Rx Instructions: administer into each nostril azithromycin [Zithromax] 250 mg tablet See Rx Instructions PO .COMPLEX Qty: 6 0RF Rx Instructions: For 250 mg dose pack: take 500 mg today (day 1), then 250 mg for 4 days (days 2-5) PO benzonatate 200 mg capsule 200 mg PO TID PRN (Reason: cough) Qty: 30 0RF Follow-up/Referrals: Heber Boss DO [Primary Care Provider] - Froylan Julio MD [Physician] - 2 Days
== END 2024-11-26 23:19 | disposition home or self-care (01) ==
PROVIDERS: Emergency Provider Emergency Medicine; PCP Internal Medicine
DX: K20.90 Esophagitis, unspecified without bleeding (principal); Z90.710 Acquired absence of both cervix and uterus; R91.8 Other nonspecific abnormal finding of lung field; R16.0 Hepatomegaly, not elsewhere classified; E27.9 Disorder of adrenal gland, unspecified
CPT/HCPCS: 36415; 71275; 74174; 80053; 83690; 85025; 93005; 96374; 96375; 99284; J2405; J2470; Q9967

== ENCOUNTER 2024-12-15 07:54 | Emergency (ER) | payer MEDICARE, SELFPAY ==
--- NOTE | ~2024-12-15 | US_ITS ---
EXAMINATION: US abdomen limited DATE: 12/15/2024 08:45 INDICATION: Epigastric and right upper quadrant abdominal pain TECHNIQUE: Multiple grayscale and Doppler ultrasound images of the abdomen were obtained. COMPARISON: CT chest, abdomen and pelvis dated 11/26/2024 FINDINGS: Visualized portion of the pancreatic body appears normal. The pancreatic head and tail are not clearly visualized. Liver has normal contour, with a smooth surface. There is increased parenchymal echogenicity and coarsened echotexture consistent with diffuse hepatic steatosis. Minimal amount of relatively hypoechoic focal fatty sparing along the gallbladder fossa. No other liver lesion identified. No intrahepatic biliary duct dilation suspected. Portal venous flow was seen in the hepatopetal, normal direction and has normal Doppler waveform. The gallbladder is dilated to 4.8 cm maximal diameter. No abnormal gallbladder wall thickening or shadowing cholelithiasis. Common bile duct is normal measuring 3 mm in maximal diameter. Sonographic Rice sign was reported as negative by the welt trimming machine operator.Visualized upper pole of the right kidney demonstrates normal contour and echogenicity with no hydronephrosis. Visualized proximal portion of the inferior vena cava is normal. IMPRESSION: 1. Diffuse hepatic steatosis. 2. Mild dilation the otherwise normal-appearing gallbladder to 4.8 cm in maximal diameter with no cholelithiasis. Reviewed, dictated and finalized at location A. IMPRESSION: 1. Diffuse hepatic steatosis. 2. Mild dilation the otherwise normal-appearing gallbladder to 4.8 cm in alcon l diameter with no cholelithiasis.
--- OUTSIDE RECORDS SUMMARY | 2024-12-15 07:58 | XMS_ITS | Clinical Summary ---
Author Organization [facility] Address [address] [place] [address] Care Team Providers Care Elevator Conductor Name Role Phone Heber Boss DO Primary Care Provider [phone] Allergies Active Allergy Reactions Criticality Noted Date [...] 06/06/2021 Assessment & Plan (06/06/2021 5:16 PM REVIEW COORDINATOR): - she was refit with a #3 [...] 06/06/2021 Assessment & Plan (06/06/2021 5:13 PM REVIEW COORDINATOR): - will reassess urinary symptoms at pessary follow up as symptoms worsened after she has had the pessary out - a urine culture is being sent to rule out a UTI as contributing factor Incomplete bladder emptying 06/06/2021 Assessment & Plan (06/06/2021 5:11 PM REVIEW COORDINATOR): - normal PVR at today's visit after fit with pessary Urinary frequency 06/06/2021 Vaginal atrophy 06/06/2021 Assessment & Plan (06/06/2021 5:11 PM REVIEW COORDINATOR): - continue twice weekly vaginal estrogen Pelvic floor dysfunction 06/06/2021 Assessment & Plan (06/06/2021 5:11 PM REVIEW COORDINATOR): - we discussed having her see a [...] 11:59 PM CDT Hospital Encounter [facility] Advanced Medicine Breast Imaging [facility] ([facility]) [address] [place] [id number] Screening mammogram, encounter for Discharge Disposition: Discharge to home or self care 10/20/2024 1:00 PM CDT Office Visit [facility] [address] [place] [address] [address] [place] [id number] Hypertrophic scar (Primary Dx) 09/21/2024 1:30 PM CDT Procedure visit [facility] [address] [place] [address] [address] [place] [address] Basal cell carcinoma (BCC) of right lower eyelid (Primary Dx) 09/14/2024 10:00 AM CDT Procedure visit [facility] [address] [place] [address] [address] [place] [phone] Jackson, Haley Lomax MD Basal cell carcinoma (BCC) of right lower eyelid (Primary Dx) from Last 3 Months Immunizations Immunization Administration Dates Next Due Moderna SARS-CoV-2 Monovalent Vaccination (12+ Y RS) 07/19/2020,06/21/2020 Surgical History Surgery Date Site/Laterality Comments BREAST BIOPSY 08/30/2019 Right COLONOSCOPY HYSTERECTOMY Medical History Medical History Date Comments Osteopenia after menopause 2014 Abnormal mammogram of right breast 08/03/2019 refer to [facility] for biopsy consultation Motion sickness Family History [...] on file Legal Sex Female 7:24 PM REVIEW 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 Mesh N/A: Pelvis [place] [employer] Zaina [id number] 10/25/2024 [id number] / / [id number] [employer] Tvt Prolene 45x1.1cm Tape Mesh Transvaginal Blue [id number] - [id number] Implanted:Qty: 1 on 01/22/2022 by Nadeen Srinivasan MD at [facility] Mesh Bladder [employer] 06/25/2024 [id number] / / Procedures Procedure Name Priority Date/Time Associated Diagnosis Comments SCREENING MAMMOGRAM BILATERAL W JOSE Schedule Routine, Read Routine (OP Routine) 11/04/2024 11:14 AM CDT Screening mammogram, encounter for COLONOSCOPY 06/05/2022 10:12 AM REVIEW COORDINATOR EGFR Routine 01/15/2022 2:13 PM CDT Preoperative [...] nal Result * COLONOSCOPY (06/05/2022 10:12 AM REVIEW COORDINATOR) Anatomical Region Laterality Modality Other Narrative Procedure Note Christi Archuleta MD - 06/05/2022 10:12 AM CST [facility] Patient Name: Milla Balderas Procedure Date: 06/05/2022 10:12 AM Date of : 1945 Admit Type: Outpatient Age: 76 Gender: Female Attending MD: Christi Archuleta M.D. Room: [facility] ENDOSCOPY ROOM 4 Note Status: Finalized Procedure: [...] scope was passed under direct vision.The [id number] endoscope was introduced through the anus and advanced to the cecum, identified by appendiceal orifice and ileocecal valve. Thequality of the bowel preparation was evaluated using theBBPS ([place] Bowel Preparation Scale) with scores of:Right Colon [...] On: 06/05/2022 10:12 AM Recognized by the [employer] for promoting quality in endoscopy us Christi Archuleta MD ENDOSCOPY PROCEDURES Maria Guadalupe l Result * eGFR (01/15/2022 2:13 PM CDT) Pathologist [facility] eGFR >90 90 - 130 mL/min/1. [address] [facility] Comment: Interpretive Data Reference Interval Normal >/= [...] 01/15/2022 2:53 PM CDT us Meghan Rowland FELT COVERER LAB BLOOD ORDERABLES Fi nal Result [facility] Department [place] [address] * DEXA SCAN (07/14/2019) Pathologist [facility] DEXA Scan Abnormal Comment:T: spine -0.1/ f nec k -1.9/Thip -0.6 FRAX Major 12%/hip 2.4% Historical Provider HEALTH MAINTENANCE Final Result from Last 3 Months or Most Recently Relevant to Health Maintenance Insurance MEDICARE [employer] [place] [address] MEDICARE [facility] [employer] [address] MEDICARE [facility] MEDICARE SUPPLEMENT Advance Directives For more information, please contact: [phone] Documents on File Type Date Recorded Patient Funeral Home Location Manager Expl anation ADVANCE DIRECTIVE 01/22/2022 7:17 AM Power of Body Specialist-Medical * Full Code (Latest Code Status on File) Date Activated Date Inactivated Comments 06/05/2022 9:14 AM 06/05/2022 3:41 PM * Full Code Date Activated Date Inactivated Comments 01/22/2022 3:34 PM 01/23/2022 4:48 PM Care Teams Elevator Conductor Relationship Specialty Start Date End Date Heber Boss DO [address] [address] PCP - General Internal Medicine 08/19/24
--- OUTSIDE RECORDS SUMMARY | 2024-12-15 07:58 | XMS_ITS | Clinical Summary ---
Author Organization [facility] Address [address] [place] [address] Care Team Providers Care Counselor Camp Name Role Phone Karthik Muñoz DO Primary Care Provider [phone] Source Comments [facility],non-owned Affiliates and Associated Physician Practices is amultiple site organization consisting of ambulatory clinics and hospital sitesin [place], [place], [place] and [place]. This disclosure is being madepursuant to the Care Everywhere program and may not contain all information available regarding this patient. Last updated 18.[facility] Allergies Active Allergy Reactions Criticality Noted Date [...] age to complete this topic Insurance MEDICARE [facility] Care Teams Counselor Camp Relationship Specialty Start Date End Date Karthik Muñoz DO [address] [facility] [address] [address] [facility] [address] [place] [address] PCP - General Internal Medicine 11/13/12
--- OUTSIDE RECORDS SUMMARY | 2024-12-15 07:58 | XMS_ITS | Clinical Summary ---
Author Organization [facility] Address [address] [address] Care Team Providers Care Vessel Traffic Officer Name Role Phone ElisKarthik johnson Primary Care Provider [phone] Allergies Active Allergy Reactions Criticality Noted Date [...] migh t be different from the original. Credit Director Dr. Schuyler Mercedes Problem Noted Date Diagnosed [...] on file Legal Sex Female 5:56 AM MATERIAL ASSEMBLER Gender Identity Not on file Sexual Orientation [...] CDT) CHOLESTEROL 172 125 - 200 mg/dL [facility] HDL 32(L) > OR = 46 mg/dL [facility] TRIGLYCERIDE 157(H) <150 mg/dL [facility] LDL CALCULATED 109 <130 mg/dL (calc) [facility] Comment: Desirable range <100 mg/dL for patients with CHD or diabetes and <70 mg/dL for diabetic patients with known heart disease. CHOL/HDL RATIO 5.4(H) < OR = 5.0 (calc) [facility] TOTAL NON-HDL CHOL(LDL+VLDL) 140 mg/dL (calc) [facility] Comment: Target for non-HDL cholesterol is 30 mg/dL higher than LDL cholesterol target. Test Performed at: [facility] [address] JUANA LAY DO,MPH 10/05/2013 8:32 AM CDT Schuyler Mercedes MD CHEMISTRY ORDERABLES Final Res ult INTERFACE SYSTEM Refer to clinic/hospital department [facility] [address] [place] [address] * (ABNORMAL) HEMOGLOBIN A1C (10/05/2013 8:29 AM CDT) Pathologist [facility] HEMOGLOBIN A1C 6.0(H) <5.7 % of total Hgb [facility] Comment: According to ADA guidelines, [...] of diabetes for children. Test Performed at: [facility] [id number] JUANA LAY DO,MPH 10/05/2013 8:29 AM CDT us Historical Provider CHEMISTRY ORDERABLES Final R esult INTERFACE SYSTEM Refer to clinic/hospital department [facility] [address] [place] [address] from Last 3 Months or Most Recently Relevant to Health Maintenance Insurance MEDICARE PART A AND B [employer] PPO Care Teams Vessel Traffic Officer Relationship Specialty Start Date End Date Karthik Muñoz DO [address] [facility] [address] [place] [address] PCP - General Internal Medicine 07/03/10
[2024-12-15 08:00] VITALS: BP 172/82; PULSE 95; RESP 16; TEMP 36.9; O2SAT 96
--- NOTE | 2024-12-15 08:13 | ED.GENADULT ---
HPI - General Adult General Chief complaint: Abdominal Pain Stated complaint: BACK/ABD PAIN Time Seen by Provider: 12/15/24 08:00 History of Present Illness HPI narrative: Patient 79-year-old female who presents emergency department chief complaint of epigastric pain radiating to the back patient states pain started this morning reports that she pizza last night reports she was seen in the emergency department earlier this month and diagnosed with gastritis patient had a CT scan at that time of her chest abdomen pelvis patient reports she has been nauseated and had an episode of vomiting. Patient denies fever denies diarrhea the patient reports no prior abdominal surgeries Related Data Home Medications ?Medication ?Instructions ?Recorded ?Confirmed ?Last Taken ?Type ascorbic acid (vitamin C) 500 mg mg PO 03/30/19 12/02/24 Unknown History capsule cholecalciferol (vitamin D3) 25 1,000 unit PO DAILY 03/30/19 12/02/24 Unknown History mcg (1,000 unit) capsule pravastatin 20 mg tablet 20 mg PO DAILY 03/30/19 12/02/24 Unknown History Allergies Allergy/AdvReac Type Severity Reaction Status Date / Time No Known Allergies Allergy Verified 12/15/24 08:03 Review of Systems Review of Systems: A 10 system review of systems was completed on the patient and is negative except for what is stated in the HPI. Nursing and ancillary documentation was reviewed. PMFSH Past Medical History Medical History Mammogram abnormal Surgical History Surgical History History of hysterectomy Family History Family History Mother Hypertension, Onset Age: 92 Social History Social History Smoking status: Never smoker Second hand tobacco smoke exposure: No Alcohol intake: never Lack of Transportation: No Lack of Food: Never True Current Housing: I Have Housing Concerned About Future Housing: No Difficulty Paying Gas/Electric Bills: No Difficulty Paying for Meds: No Currently Unemployed: No Education: Associate Degree Difficulty w/ Childcare or Family Care: No Exam Narrative: GENERAL: Well-appearing, well-nourished, and in no acute distress. HEAD: Normocephalic, atraumatic. EYES: PERRLA and EOMI. ENT: Nares clear, no rhinorrhea or epistaxis. Mucous membranes moist. NECK: Supple. CHEST: Clear to auscultation. No respiratory distress. HEART: Regular rate and rhythm. No murmur heard. Normal peripheral pulses. ABDOMEN: Soft, tenderness to palpation in the epigastric region, nondistended, normal active bowel sounds. EXTREMITIES: Normal range of motion. No edema. SKIN: Warm, dry, no rash. NEURO: No focal deficits. Alert and oriented x3. PSYCH: Normal mood and affect. Course Vital Signs Vital signs: Vital Signs Temperature 36.9 C 12/15/24 08:00 Pulse Rate 95 12/15/24 08:00 Respiratory Rate 16 12/15/24 08:00 Blood Pressure 172/82 H 12/15/24 08:00 Pulse Oximetry 96 12/15/24 08:00 Oxygen Delivery Room Air 12/15/24 08:00 Temperature 36.9 C 12/15/24 08:00 Pulse Rate 87 12/15/24 11:01 Respiratory Rate 17 12/15/24 11:01 Blood Pressure 168/89 H 12/15/24 11:01 Pulse Oximetry 98 12/15/24 11:01 Oxygen Delivery Room Air 12/15/24 08:00 Medical Decision Making MDM Narrative Medical decision making narrative: differential diagnosis includes gastritis, cholecystitis, pancreatitis, laboratory studies were obtained on the patient showed a white count of 15.7 electrolytes were within normal limits bilirubin is 0.8 AST was 56 ALT was 32 lipase was normal at 80 urinalysis showed 1+ leukocyte esterase with 0-5 white blood cells the patient recently had a CT scan that showed gastritis. Given the patient's syptoms concern for acute cholecystitis was entertained. Ultrasound of the gallbladder was obtained that showed no evidence of acute cholecystitis no evidence of biliary obstruction there was enlargement of the gallbladder. Patient's pain is improved patient be discharged home to follow-up with her primary care provider if she continues to have symptoms patient may need a HIDA scan Vital Signs Vital Signs: Vital Signs Temperature 36.9 C 12/15/24 08:00 Pulse Rate 95 12/15/24 08:00 Respiratory Rate 16 12/15/24 08:00 Blood Pressure 172/82 H 12/15/24 08:00 Pulse Oximetry 96 12/15/24 08:00 Oxygen Delivery Room Air 12/15/24 08:00 Temperature 36.9 C 12/15/24 08:00 Pulse Rate 87 12/15/24 11:01 Respiratory Rate 17 12/15/24 11:01 Blood Pressure 168/89 H 12/15/24 11:01 Pulse Oximetry 98 12/15/24 11:01 Oxygen Delivery Room Air 12/15/24 08:00 Lab Data 12/15/24 08:05 12/15/24 08:05 Labs: Lab Results 12/15/24 12/15/24 Range/Units 08:05 09:29 WBC 15.7 H (4.5-10.0) K/mm3 RBC 4.46 (4.2-5.4) M/mm3 Hgb 13.5 (12.0-15.0) g/dL Hct 41.9 (37.0-47.0) % MCV 93.9 (80-100) fl MCH 30.3 (26-34) pg MCHC 32.2 (32-36) g/dl RDW 12.7 (11.5-14.5) % Plt Count 270 (150-375) k/mm3 MPV 10.6 H (7.4-10.4) fl Immature Gran % (Auto) 0.4 (0-0.5) % Neut % (Auto) 86.1 H (45.5-73.1) % Lymph % (Auto) 6.6 L (18.3-44.2) % [place] % (Auto) 6.6 (2.6-8.5) % Eos % (Auto) 0.1 (0-4.4) % Baso % (Auto) 0.2 (0.2-1.2) % Lymph # (Auto) 1.04 (0.9-3.2) K/mm3 [place] # (Auto) 1.0 H (0.1-0.6) K/mm3 Eos # (Auto) 0.0 (0-0.3) K/mm3 Baso # (Auto) 0.0 (0.0-0.1) K/mm3 Abs Immat Gran (auto) 0.06 H (0.00-0.031) K/mm3 Absolute Neuts (auto) 13.5 H (1.3-6.7) K/mm3 Absolute Nucleated RBC 0.000 (0.0-0.012) K/mm3 Nucleated RBC % 0.0 (0.0-0.2) % Sodium 137 (137-145) mmol/L Potassium 4.3 (3.4-5.0) mmol/L Chloride 103 (98-107) mmol/L Carbon Dioxide 24 (22-30) mmol/L Anion Gap 10 (4-12) mmol/L BUN 16 (7-17) mg/dL Creatinine 0.76 (0.7-1.0) mg/dL Estim Creat Clear Calc 59 ml/min Estimated GFR > 60 (59 - ) Glucose 158 H (65-110) mg/dL Calcium 9.5 (8.4-10.2) mg/dL Total Bilirubin 0.8 (0.2-1.3) mg/dL AST 56 H (14-36) U/L ALT 32 (6-35) U/L Alkaline Phosphatase 79 (38-126) U/L Total Protein 8.1 (6.3-8.2) g/dL Albumin 4.6 (3.5-5.1) g/dL Lipase 80 (23-300) U/L Urine Color Yellow (Yellow) Urine Appearance Clear (Clear) Urine pH 5.5 (5.0-9.0) Ur Specific [place] 1.011 (1.001-1.035) Urine Protein Negative (Negative) mg/dL Urine Glucose (UA) Negative (Negative) mg/dL Urine Ketones Negative (Negative) mg/dL Ur Blood (Man) 1+ H (Negative) Urine Nitrate Positive H (Negative) Urine Bilirubin Negative (Negative) Urine Urobilinogen 0.2 (<2.0) mg/dL Add Ur Microanalysis Reviewed Leukocyte Esterase Rfl 1+ H (Negative) LAURO/UL Urine RBC 0-2 (0-2) /hpf Urine WBC 0-5 (0-3) /hpf Ur Squamous Epith Cells Occasional (Few) /hpf Urine Bacteria 4+ H /hpf Urine Casts 0-2 Discharge Plan Discharge Clinical Impression: Abdominal pain Patient Disposition: Home Condition: Stable Instructions: Antibiotic Form, Abdominal Pain (ED) Additional Instructions: please avoid fatty foods greasy foods or spicy foods. Please follow-up with your primary care provider if you continued to have symptoms you may need additional imaging that could include a HIDA scan Patient Language: Armenian Prescriptions: No Action famotidine 20 mg tablet 20 mg PO DAILY Qty: 30 0RF pantoprazole [Protonix] 40 mg tablet,delayed release (DR/EC) 40 mg PO HS 28 Days Qty: 28 0RF pravastatin 20 mg tablet 20 mg PO DAILY ascorbic acid (vitamin C) 500 mg capsule PO cholecalciferol (vitamin D3) 1,000 unit capsule 1,000 unit PO DAILY losartan 50 mg tablet 50 mg PO DAILY Qty: 90 3RF fluticasone propionate 50 mcg/actuation spray,suspension 2 spray NASAL DAILY PRN (Reason: nasal congestion) Qty: 15.8 5RF Rx Instructions: administer into each nostril Follow-up/Referrals: Heber Boss DO [Primary Care Provider, Internal Medicine] Time of Disposition: 12:06
[2024-12-15 08:14] LABS: Hematocrit 41.9 % (37.0-47.0); Hemoglobin 13.5 g/dL (12.0-15.0); Immature Granulocyte Percent A 0.4 % (0-0.5); Lymphocytes Absolute Auto 1.04 K/mm3 (0.9-3.2); Mean Corpuscular HGB Conc 32.2 g/dl (32-36); Mean Corpuscular Hemoglobin 30.3 pg (26-34); Mean Corpuscular Volume 93.9 fl (80-100); Nucleated Red Blood Cells Absolute Auto 0.000 K/mm3 (0.0-0.012); Nucleated Red Blood Cells Perc 0.0 % (0.0-0.2); Platelet Count Result 270 k/mm3 (150-375); Red Blood Count 4.46 M/mm3 (4.2-5.4); White Blood Count 15.7 K/mm3 (4.5-10.0)
[2024-12-15] MEDS: MORPHINE SULFATE (*CRX) 4 MG/ML INJ 2 MG IV PUSH (08:18)
[2024-12-15] MEDS: ONDANSETRON INJ 4 MG/2 ML VIAL IV PUSH (08:19)
[2024-12-15] MEDS: SODIUM CHLORIDE 0.9% IV 1,000 ML 999 ML IV CONT (08:19)
[2024-12-15] MEDS: PANTOPRAZOLE SODIUM IV 40 MG VIAL IV PUSH (08:19)
[2024-12-15 08:31] LABS: Alanine Aminotransferase 32 U/L (6-35); Albumin Level 4.6 g/dL (3.5-5.1); Alkaline Phosphatase 79 U/L (38-126); Anion Gap 10 mmol/L (4-12); Aspartate Amino Transferase 56 U/L (14-36); Bilirubin,Total 0.8 mg/dL (0.2-1.3); Blood Urea Nitrogen 16 mg/dL (7-17); Calcium 9.5 mg/dL (8.4-10.2); Carbon Dioxide 24 mmol/L (22-30); Chloride 103 mmol/L (98-107); Estimated CRCL calculation 59 ml/min; Estimated Glomerular Filt Rate > 60; Glucose 158 mg/dL (65-110); Lipase 80 U/L (23-300); Potassium 4.3 mmol/L (3.4-5.0); Sodium 137 mmol/L (137-145); Total Protein 8.1 g/dL (6.3-8.2)
[2024-12-15] MEDS: MORPHINE SULFATE (*CRX) 4 MG/ML INJ IV PUSH (09:35)
[2024-12-15 09:37] VITALS: BP 160/68; PULSE 79; RESP 17; O2SAT 95
[2024-12-15 10:11] LABS: Add Urine Microscopic? YES; Appearance Urine Clear (Clear); Glucose Urine UA Negative (Negative); Leukocyte Esterase Ur 1+ LEU/UL (Negative); Need Manual Microscopic Reviewed; Nitrate Urine Positive (Negative); Non Pathogenic Casts 0-2; Specific Grav Ur 1.011 (1.001-1.035)
[2024-12-15 11:01] VITALS: BP 168/89; PULSE 87; RESP 17; O2SAT 98
== END 2024-12-15 12:10 | disposition home or self-care (01) ==
PROVIDERS: Emergency Provider Emergency Medicine; PCP Internal Medicine
DX: R10.13 Epigastric pain (principal); Z90.710 Acquired absence of both cervix and uterus
CPT/HCPCS: 36415; 76705; 80053; 81001; 83690; 85025; 87086; 96361; 96374; 96375; 96376; 99284; J2270; J2405; J2470; J7030

== ENCOUNTER 2024-12-20 17:55 | Inpatient (IN) | payer MEDICARE, SELFPAY ==
--- NOTE | ~2024-12-20 | CT_ITS ---
EXAMINATION: CT abdomen pelvis w con DATE: 12/20/2024 19:46 INDICATION: Epigastric pain TECHNIQUE: Computed tomography (CT) of the abdomen and pelvis was performed with 100 mL Omnipaque-350 intravenous contrast. Automated exposure control and iterative reconstruction technique were employed. The dose-length product was 590.33 mGy-cm. COMPARISON: None FINDINGS: Mild respiratory motion and mild atelectasis at the bilateral lung bases. Heart size is normal. No pericardial or pleural effusion. Small sliding-type hiatal hernia. Liver, gallbladder, spleen, bilateral kidneys and right adrenal gland are normal. No significant change in a 1.4 cm left adrenal nodule. There is prominent inflammatory stranding surrounding the pancreas which demonstrates homogeneous parenchymal enhancement throughout consistent with acute interstitial pancreatitis. Focus of gas within a small duodenal diverticulum situated between the second portion of the duodenum and the head of the pancreas. No abscess or loculated acute peripancreatic fluid collections. There is moderate sigmoid diverticulosis without adjacent inflammatory change to suggest diverticulitis. No bowel obstruction. The appendix is not visualized. No pericecal inflammatory change to suggest acute appendicitis. Bladder is normal. The uterus is not identified and has likely been surgically resected. No free intraperitoneal gas or fluid. No pathologically enlarged abdominal or pelvic lymphadenopathy. Lumbar levoscoliosis with moderate spondylosis. IMPRESSION: 1. Acute interstitial pancreatitis. 2. 1.4 cm indeterminate left adrenal nodule which in the absence of known malignancy most likely represents an adenoma. Consider 12 month follow-up pre and postcontrast CT or MRI. Reviewed, dictated and finalized at location A. IMPRESSION: 1. Acute interstitial pancreatitis. 2. 1.4 cm indeterminate left adrenal nodule which in the absence of known malig april most likely represents an adenoma. Consider 12 month follow-up pre and po stcontrast CT or MRI.
--- NOTE | ~2024-12-20 | MR_ITS ---
EXAMINATION: MR MRCP wo/w con/w 3D wo ind DATE: 12/22/2024 09:14 INDICATION: Elevated liver function tests. Leukocytosis. TECHNIQUE: Magnetic resonance imaging (MRI) of the abdomen was performed without and with 17 mL Multihance intravenous contrast. Sequences included coronal T2- weighted SS-FSE, coronal T2-weighted FS SS-FSE, coronal T2-weighted FS FIESTA, axial T2-weighted FS FIESTA, axial T2-weighted FIESTA, sagittal T2-weighted SS- FSE, axial T1-weighted dual-echo FSPGR, axial T2-weighted SS-FSE, axial T1- weighted LAVA, axial T2-weighted STIR FSE. Thick-slab T2-weighted FRFSE-XL images were obtained for magnetic resonance cholangiopancreatography (MRCP). Rotating maximum intensity projection 3-D reconstructions of the volumetric data were created by the technologist. Postcontrast sequences included a time course of axial T1-weighted LAVA. COMPARISON: CT dated 12/20/2024 FINDINGS: ABDOMEN MRI: Very small dependent layering pleural effusions. Bandlike opacities in the bilateral lower lungs with configuration favoring atelectasis over pneumonia. Heart size is normal. No pericardial effusion. Small sliding-type hiatal hernia. Liver, spleen, right adrenal gland and right kidney are normal. 5 mm T2 hyperintense nonenhancing left renal cyst. 1.4 similar left adrenal adenoma with signal dropout on opposed phase imaging. There is dependently layering sludge within the gallbladder but no low signal intensity gallstones. There is pancreatic interstitial edema consistent with acute interstitial hepatitis. Additional retroperitoneal peripancreatic edema which tracks caudally along the anterior left perirenal and to lesser degree anterior right pararenal spaces. There is some additional bilateral perinephric stranding. No discrete loculated peripancreatic fluid collections or organized abscess. There is also minimal edema along the liver, gallbladder and spleen. There are scattered colonic diverticula without adjacent from trace stranding to suggest diverticulitis. No pathologically enlarged abdominal or upper pelvic lymphadenopathy. 20 degrees lumbar levoscoliosis with mild to moderate spondylosis. ABDOMEN MRCP: No intrahepatic biliary ductal dilation. Normal caliber common hepatic and common bile duct measuring up to 4-5 mm in maximal diameter tapering distally with no evident choledocholithiasis. IMPRESSION: 1. Acute interstitial pancreatitis. 2. Gallbladder sludge. Normal MRCP with no cholelithiasis/choledocholithiasis. 3. 1.4 cm left adrenal adenoma. Reviewed, dictated and finalized at location A.
--- NOTE | ~2024-12-20 | XR_ITS ---
EXAMINATION: XR cholangiogram surg 1st inj DATE: 12/23/2024 15:57 INDICATION: Intraoperative evaluation during laparoscopic cholecystectomy TECHNIQUE: Multiple fluoroscopic images of the right upper quadrant were obtained during intraoperative cholangiography. A total of 108 fluoroscopic images were obtained. The amount of fluoroscopy time used during this procedure was 0.3 minutes. Total DAP was 2.05 Gycm^2. COMPARISON: None. FINDINGS: Cannulation of the cystic duct demonstrates filling of a normal appearing common bile duct which tapers smoothly distally with no intraluminal filling defects or stricture. Contrast extends into the duodenum and central intrahepatic biliary tree which also appears normal. IMPRESSION: 1. No filling defects or strictures within the common bile duct or contrast opacified central biliary tree. Reviewed, dictated and finalized at location A. IMPRESSION: 1. No filling defects or strictures within the common bile duct or contrast opa cified central biliary tree.
--- NOTE | ~2024-12-20 | US_ITS ---
US abdomen limited Indication: r/o gallbladder sludge (biliary pancreatitis) Comparison: Comparison CT previously obtained. Technique: Pang-scale and color Doppler images were obtained. Findings: LIVER: Mild increased echogenicity of the liver. . GALLBLADDER/BILIARY: There is sludge within the gallbladder wall thickening or pericholecystic fluid. CBD 4.9 mm. Flora sign negative. PANCREAS: Pancreas limited by bowel gas. Right Kidney: Right kidney was not demonstrated. Impression: 1. Limited study. Sludge within the gallbladder. No evidence of acute cholecystitis. 2. Mild hepatic steatosis versus hepatocellular disease. Reviewed, dictated and finalized at location A. Impression: 1. Limited study. Sludge within the gallbladder. No evidence of acute cholecyst itis. 2. Mild hepatic steatosis versus hepatocellular disease.
[2024-12-20 17:58] VITALS: BP 178/84; PULSE 86; RESP 15; TEMP 36.6; O2SAT 97
[2024-12-20 18:37] VITALS: BP 184/80; PULSE 83; RESP 20; O2SAT 98
[2024-12-20 19:01] LABS: Hematocrit 39.5 % (37.0-47.0); Hemoglobin 12.8 g/dL (12.0-15.0); Immature Granulocyte Percent A 0.3 % (0-0.5); Lymphocytes Absolute Auto 0.89 K/mm3 (0.9-3.2); Mean Corpuscular HGB Conc 32.4 g/dl (32-36); Mean Corpuscular Hemoglobin 30.0 pg (26-34); Mean Corpuscular Volume 92.5 fl (80-100); Nucleated Red Blood Cells Absolute Auto 0.000 K/mm3 (0.0-0.012); Nucleated Red Blood Cells Perc 0.0 % (0.0-0.2); Platelet Count Result 299 k/mm3 (150-375); Red Blood Count 4.27 M/mm3 (4.2-5.4); White Blood Count 10.9 K/mm3 (4.5-10.0)
[2024-12-20 19:17] LABS: Alanine Aminotransferase 226 U/L (6-35); Albumin Level 4.3 g/dL (3.5-5.1); Alkaline Phosphatase 334 U/L (38-126); Anion Gap 10 mmol/L (4-12); Aspartate Amino Transferase 221 U/L (14-36); Bilirubin,Total 0.9 mg/dL (0.2-1.3); Blood Urea Nitrogen 18 mg/dL (7-17); Calcium 9.3 mg/dL (8.4-10.2); Carbon Dioxide 25 mmol/L (22-30); Chloride 103 mmol/L (98-107); Estimated CRCL calculation 55 ml/min; Estimated Glomerular Filt Rate > 60; Glucose 131 mg/dL (65-110); Potassium 4.2 mmol/L (3.4-5.0); Sodium 138 mmol/L (137-145); Total Protein 7.8 g/dL (6.3-8.2)
[2024-12-20] MEDS: MORPHINE SULFATE (*CRX) 2 MG/ML INJ IV PUSH (19:28)
[2024-12-20] MEDS: FAMOTIDINE 20 MG/2 ML VIAL IV PUSH (19:28)
[2024-12-20] MEDS: ONDANSETRON INJ 4 MG/2 ML VIAL IV PUSH ×2 (19:28→21:29)
[2024-12-20 20:21] LABS: Magnesium 2.1 mg/dL (1.6-2.3)
--- NOTE | 2024-12-20 20:27 | ED.ABDPAIN ---
HPI - Abdominal Pain General Chief Complaint: Abdominal Pain Stated Complaint: abd pain Time Seen by Provider: 12/20/24 19:03 History of Present Illness HPI narrative: Patient is a 79-year-old female who presents to the emergency department this evening complaining of mid epigastric abdominal pain but states that she has been having this problem since the beginning of this month and has been seen here 2 times in the past, has had a CT of her abdomen with contrast and an ultrasound which revealed dilated gallbladder. Patient states that she has had a scan scheduled for tomorrow but today around 3:00 p.m. the pain was unbearable. He denies any history of GERD/peptic ulcers or pancreatitis. Admits to nausea and vomiting. Denies any additional symptoms or concerns at this time. Related Data Home Medications ?Medication ?Instructions ?Recorded ?Confirmed ?Last Taken ?Type ascorbic acid (vitamin C) 500 mg mg PO 03/30/19 12/17/24 Unknown History capsule cholecalciferol (vitamin D3) 25 1,000 unit PO DAILY 03/30/19 12/17/24 Unknown History mcg (1,000 unit) capsule pravastatin 20 mg tablet 20 mg PO DAILY 03/30/19 12/17/24 Unknown History Allergies Allergy/AdvReac Type Severity Reaction Status Date / Time No Known Allergies Allergy Verified 12/20/24 17:56 Review of Systems Review of Systems: All systems are reviewed and are negative unless stated otherwise in the HPI. [facility] Past Medical History Medical History Mammogram abnormal Surgical History Surgical History History of hysterectomy Family History Family History Mother Hypertension, Onset Age: 92 Social History Social History Smoking status: Never smoker Second hand tobacco smoke exposure: No Alcohol intake: never Substance use: never Substance use type: does not use Do You Feel Safe in your Home?: Yes Lack of Transportation: No Lack of Food: Never True Current Housing: I Have Housing Concerned About Future Housing: No Difficulty Paying Gas/Electric Bills: No Difficulty Paying for Meds: No Currently Unemployed: No Education: Associate Degree Difficulty w/ Childcare or Family Care: No Living arrangements: with family Occupation/Education: retired Gender identity (if verbalized by the patient): Female Exam Narrative: General: Alert, awake, afebrile, in moderate distress secondary to pain. HEENT: PERRL, no rhinorrhea, no post nasal drip, oropharynx clear. Neck: Trachea midline, no JVD, no lymphadenopathy. Cardiovascular: Regular rate and rhythm, no murmurs, rubs or gallops, no peripheral edema. Respiratory: Clear to auscultation bilaterally, no tachypnea, no wheezing, no rhonchi, no rubs, no respiratory distress. Abdomen: Soft, tenderness palpation over the mid epigastric and bilateral upper quadrant, nondistended, no rebound, no guarding, no peritoneal signs. Musculoskeletal: No joint swelling or deformity, normal muscle tone. Skin: No rashes or petechia, no signs of infection. Psychiatric: Alert and oriented, normal behavior and judgment for situation. Neurological: Alert and oriented to person, place, and time. Follows all commands. No focal deficits, speech is clear and fluent. Course Vital Signs Vital signs: Vital Signs Temperature 97.8 F 12/20/24 17:58 Pulse Rate 86 12/20/24 17:58 Respiratory Rate 15 12/20/24 17:58 Blood Pressure 178/84 H 12/20/24 17:58 Pulse Oximetry 97 12/20/24 17:58 Oxygen Delivery Room Air 12/20/24 17:58 Temperature 97.8 F 12/20/24 17:58 Pulse Rate 84 12/20/24 20:40 Respiratory Rate 22 H 12/20/24 20:40 Blood Pressure 173/73 H 12/20/24 20:40 Pulse Oximetry 96 12/20/24 20:40 Oxygen Delivery Room Air 12/20/24 18:37 MDM - Abdominal Pain MDM Narrative Medical decision making narrative: The patient was evaluated by myself in the emergency department. History is obtained from patient who is an independent historian and physical exam was performed. External medical records were reviewed at this time. IV was established and pertinent tests were ordered. Patient was administered 2 mg of IV morphine and 4 mg IV Zofran, 20 mg of IV Pepcid and 1 L IV fluid bolus with normal saline. Patient continues to have pain at this time she was administered an additional dose of morphine 4 mg and Zofran 4 mg. Laboratory results obtained revealing transaminitis with an AST of 221 and ALT of 226, alkaline phosphatase 334 and a lipase greater than 20,000. Imaging studies obtained included CT abdomen pelvis with IV contrast which was independently interpreted by me revealing: IMPRESSION: 1. Acute interstitial pancreatitis. 2. 1.4 cm indeterminate left adrenal nodule which in the absence of known malignancy most likely represents an adenoma. Consider 12 month follow-up pre and postcontrast CT or MRI. Patient was informed of these findings at bedside. Differential diagnosis considerations include peptic ulcer disease, gastritis, cholecystitis, biliary colic, pancreatitis. Comorbidities impacting this visit include none. I have evaluated and discussed social determinants of health with the patient that could potentially impact subsequent diagnosis and treatment plans. On repeat assessment of the patient, reevaluation revealed that the patient is doing well and is in no acute distress. Patient symptoms have improved since she arrived to our emergency department. Repeat vital signs were all reviewed and noted to be stable. Differential diagnosis and treatment plan were discussed with the patient at bedside. Patient agrees with discussion and after shared medical decision making agrees with admission. All questions were answered to the patient's satisfaction. Case was discussed with the wire rope fabrication supervisor GI physician at 2100 and the wire rope fabrication supervisor SHOE CLEANER Chris who accepted admission. Per Dr. Paula he recommended repeating the GB US, no PPI, LR at 125 cc/hr. He will see patient first thing in the morning. Lab Data 12/20/24 18:52 12/20/24 18:52 Labs: Lab Results 12/20/24 12/20/24 Range/Units 18:52 20:36 WBC 10.9 H (4.5-10.0) K/mm3 RBC 4.27 (4.2-5.4) M/mm3 Hgb 12.8 (12.0-15.0) g/dL Hct 39.5 (37.0-47.0) % MCV 92.5 (80-100) fl MCH 30.0 (26-34) pg MCHC 32.4 (32-36) g/dl RDW 13.2 (11.5-14.5) % Plt Count 299 (150-375) k/mm3 MPV 10.1 (7.4-10.4) fl Immature Gran % (Auto) 0.3 (0-0.5) % Neut % (Auto) 84.5 H (45.5-73.1) % Lymph % (Auto) 8.1 L (18.3-44.2) % [place] % (Auto) 5.3 (2.6-8.5) % Eos % (Auto) 1.4 (0-4.4) % Baso % (Auto) 0.4 (0.2-1.2) % Lymph # (Auto) 0.89 L (0.9-3.2) K/mm3 [place] # (Auto) 0.6 (0.1-0.6) K/mm3 Eos # (Auto) 0.2 (0-0.3) K/mm3 Baso # (Auto) 0.0 (0.0-0.1) K/mm3 Abs Immat Gran (auto) 0.03 (0.00-0.031) K/mm3 Absolute Neuts (auto) 9.3 H (1.3-6.7) K/mm3 Absolute Nucleated RBC 0.000 (0.0-0.012) K/mm3 Nucleated RBC % 0.0 (0.0-0.2) % Sodium 138 (137-145) mmol/L Potassium 4.2 (3.4-5.0) mmol/L Chloride 103 (98-107) mmol/L Carbon Dioxide 25 (22-30) mmol/L Anion Gap 10 (4-12) mmol/L BUN 18 H (7-17) mg/dL Creatinine 0.77 (0.7-1.0) mg/dL Estim Creat Clear Calc 55 ml/min Estimated GFR > 60 (59 - ) Glucose 131 H (65-110) mg/dL Calcium 9.3 (8.4-10.2) mg/dL Magnesium 2.1 (1.6-2.3) mg/dL Total Bilirubin 0.9 (0.2-1.3) mg/dL AST 221 H (14-36) U/L ALT 226 H (6-35) U/L Alkaline Phosphatase 334 H (38-126) U/L Total Protein 7.8 (6.3-8.2) g/dL Albumin 4.3 (3.5-5.1) g/dL Lipase 09593 H (23-300) U/L Urine Color Yellow (Yellow) Urine Appearance Clear (Clear) Urine pH 6.0 (5.0-9.0) Ur Specific [place] > 1.045 H (1.001-1.035) Urine Protein Negative (Negative) mg/dL Urine Glucose (UA) Negative (Negative) mg/dL Urine Ketones Negative (Negative) mg/dL Ur Blood (Man) Negative (Negative) Urine Nitrate Positive H (Negative) Urine Bilirubin Negative (Negative) Urine Urobilinogen 1.0 (<2.0) mg/dL Leukocyte Esterase Rfl 2+ H (Negative) LAURO/UL Urine RBC 0-2 (0-2) /hpf Urine WBC 21-50 H (0-3) /hpf Ur Squamous Epith Cells Few (Few) /hpf Urine Bacteria 4+ H /hpf Urine Casts 0-2 Imaging Data Radiologist's impression: ITS Impressions Abdomen/Pelvis CT 12/20/24 20:06 IMPRESSION: 1. Acute interstitial pancreatitis. 2. 1.4 cm indeterminate left adrenal nodule which in the absence of known malignancy most likely represents an adenoma. Consider 12 month follow-up pre and postcontrast CT or MRI. Discharge Plan Discharge Clinical Impression: Acute pancreatitis Patient Disposition: Still a Patient Condition: Improved Instructions: Antibiotic Form Patient Language: Hungarian Prescriptions: No Action famotidine 20 mg tablet 20 mg PO DAILY Qty: 30 0RF pantoprazole [Protonix] 40 mg tablet,delayed release (DR/EC) 40 mg PO HS 28 Days Qty: 28 0RF pravastatin 20 mg tablet 20 mg PO DAILY ascorbic acid (vitamin C) 500 mg capsule PO cholecalciferol (vitamin D3) 1,000 unit capsule 1,000 unit PO DAILY losartan 50 mg tablet 50 mg PO DAILY Qty: 90 3RF fluticasone propionate 50 mcg/actuation spray,suspension 2 spray NASAL DAILY PRN (Reason: nasal congestion) Qty: 15.8 5RF Rx Instructions: administer into each nostril Follow-up/Referrals: Heber Boss DO [Primary Care Provider, Internal Medicine] Time of Disposition: 20:28
[2024-12-20 20:37] LABS: Lipase 20027 U/L (23-300)
[2024-12-20 20:40] VITALS: BP 173/73; PULSE 84; RESP 22; O2SAT 96
[2024-12-20 20:53] LABS: Add Urine Microscopic? YES; Appearance Urine Clear (Clear); Glucose Urine UA Negative (Negative); Leukocyte Esterase Ur 2+ LEU/UL (Negative); Nitrate Urine Positive (Negative); Non Pathogenic Casts 0-2; Specific Grav Ur > 1.045 (1.001-1.035)
[2024-12-20] MEDS: cefTRIAXone 1 GM in SODIUM CHLORIDE 0.9% IV 50 ML 100 ML IVPB (21:29)
[2024-12-20] MEDS: MORPHINE SULFATE (*CRX) 4 MG/ML INJ IV PUSH (21:29)
[2024-12-20] MEDS: SODIUM CHLORIDE 0.9% IV 1,000 ML 999 ML IV CONT ×2 (21:30)
[2024-12-20] MEDS: LACTATED RINGERS 1,000 ML 125 ML IV CONT (21:30)
[2024-12-20 21:31] VITALS: BMI 32.3
--- NOTE | 2024-12-20 21:51 | ADMGEN ---
This patient, Milla Balderas, was admitted to 2 Medical Room 256-01. Patient/family oriented to hospital policies and general routines including ID bracelet, bed and alarms, visiting hours, pain management, procedures, bathroom and other care routines, personal items, smoking policy, room service/diet, and visiting hours. Information on how to activate the Rapid Response Team has been discussed. Patient/Family are encouraged to report perceived risks to care and to ask questions if they do not understand what they are told or what they should do.
[2024-12-20 22:00] VITALS: BP 157/62; PULSE 80; RESP 18; TEMP 36.7; O2SAT 96
[2024-12-20 22:04] VITALS: O2SAT 96
[2024-12-20 23:54] VITALS: BP 165/56; PULSE 90; RESP 18; TEMP 37.2; O2SAT 94
--- NOTE | 2024-12-21 00:46 | WPDGICN ---
Assessment and Plan Assessment and plan (1) Acute pancreatitis: Code(s): K85.90 - Acute pancreatitis without necrosis or infection, unspecified Status: Acute Assessment and Plan: Based on the patient's clinical presentation, lab results, and CT scan, she has clear evidence of acute pancreatitis. The presence of a distended gallbladder and significantly elevated liver enzymes strongly suggest a biliary etiology as the most likely cause. While subtle biliary crystals not visible on a standard ultrasound can be a factor, an endoscopic ultrasound would be ideal but not feasible here. Our immediate priority is to manage the acute pancreatitis with adequate fluid resuscitation using Lactated Ringer's solution at 125 cc/hour. We will closely monitor her urinary output, respiratory rate, and oxygen saturation to prevent fluid overload. Instead of serial lipase levels, we will track her hematocrit and BUN to ensure adequate hemodilution and reduce the risk of necrotizing complications. We will repeat the abdominal ultrasound, paying special attention to any subtle signs of biliary sludge. Once the acute episode resolves and her pain subsides, we will consult surgery to discuss a prophylactic laparoscopic cholecystectomy. We also plan to initiate early oral feeding and consider an MRCP to further evaluate the biliary system. A HIDA scan was scheduled for tomorrow but will defer it since it may not be feasible because the patient is NPO and the gallbladder ejection fraction (which needs a post prandial imaging) can't be done at this moment. GI Consult Note Consult date/time: 12/21/24 00:46 Reason for consult: Acute pancreatitis HPI: Milla Balderas, a 79-year-old female, was admitted today with severe, unremitting pain in her epigastric and mid-abdominal regions, radiating to her back and right upper quadrant. This is her third attack in three weeks, but unlike previous episodes, the pain has not subsided. Her first attack, which occurred at the beginning of the month, was less intense and resolved with pain medication in the emergency room. A second visit presented a similar picture. On both occasions, imaging revealed a distended gallbladder but no gallstones. She is asymptomatic between episodes. During this current admission, her lab results showed a WBC of 10.9, a lipase level of 20,027, and elevated liver enzymes (AST 221, ALT 226, alk-phos 334). A prior abdominal ultrasound on 12/15/2024 showed no gallstones, no gallbladder distension, and a normal common bile duct. However, a CT scan from today confirmed a diagnosis of acute interstitial pancreatitis. Review of Systems Review of Systems: All systems reviewed & are unremarkable except as noted in HPI and below PMFSH Past Medical History Medical History Mammogram abnormal Surgical History Surgical History History of hysterectomy Family History Family History Mother Hypertension, Onset Age: 92 Social History Social History Smoking status: Never smoker Second hand tobacco smoke exposure: No Alcohol intake: never Substance use: never Substance use type: does not use Do You Feel Safe in your Home?: Yes Lack of Transportation: No Lack of Food: Never True Current Housing: I Have Housing Concerned About Future Housing: No Difficulty Paying Gas/Electric Bills: No Difficulty Paying for Meds: No Currently Unemployed: No Education: Associate Degree Difficulty w/ Childcare or Family Care: No Living arrangements: with family Occupation/Education: retired Gender identity (if verbalized by the patient): Female Spiritual care concerns: No Meds Home Medications and Allergies Home Medications ?Medication ?Instructions ?Recorded ?Confirmed ?Type ascorbic acid (vitamin C) 500 mg 500 mg PO DAILY 03/30/19 12/20/24 History capsule cholecalciferol (vitamin D3) 25 1,000 unit PO DAILY 03/30/19 12/20/24 History mcg (1,000 unit) capsule pravastatin 20 mg tablet 20 mg PO DAILY 03/30/19 12/20/24 History losartan 50 mg tablet 50 mg PO DAILY #90 tabs 06/19/22 12/20/24 Rx fluticasone propionate 50 2 spray intranasal DAILY PRN nasal 04/29/23 12/20/24 Rx mcg/actuation nasal congestion #15.8 mL spray,suspension famotidine 20 mg tablet 20 mg PO DAILY #30 tabs 11/26/24 12/20/24 Rx pantoprazole 40 mg tablet,delayed 40 mg PO HS 4 weeks #28 tabs 11/26/24 12/20/24 Rx release (Protonix) Allergies Allergy/AdvReac Type Severity Reaction Status Date / Time No Known Allergies Allergy Verified 12/20/24 17:56 Vital Signs Vital Signs - 24 hr 12/20/24 17:58 12/20/24 18:37 12/20/24 20:40 Temperature 97.8 F Pulse Rate 86 83 84 Respiratory Rate 15 20 22 H Blood Pressure 178/84 H 184/80 H 173/73 H Pulse Oximetry 97 98 96 Oxygen Delivery Room Air Room Air Oxygen Flow Rate 12/20/24 22:00 12/20/24 22:04 12/20/24 23:54 Temperature 98.1 F 99 F Pulse Rate 80 90 Respiratory Rate 18 18 Blood Pressure 157/62 H 165/56 H Pulse Oximetry 96 96 94 Oxygen Delivery Nasal Cannula Oxygen Flow Rate 2 Exam Narrative: General: Alert, awake, afebrile, in moderate distress secondary to pain. HEENT: PERRL, no rhinorrhea, no post nasal drip, oropharynx clear. Neck: Trachea midline, no JVD, no lymphadenopathy. Cardiovascular: Regular rate and rhythm, no murmurs, rubs or gallops, no peripheral edema. Respiratory: Clear to auscultation bilaterally, no tachypnea, no wheezing, no rhonchi, no rubs, no respiratory distress. Abdomen: Soft, tenderness palpation over the mid epigastric and bilateral upper quadrant, nondistended, no rebound, no guarding, no peritoneal signs. Musculoskeletal: No joint swelling or deformity, normal muscle tone. Skin: No rashes or petechia, no signs of infection. Psychiatric: Alert and oriented, normal behavior and judgment for situation. Neurological: Alert and oriented to person, place, and time. Follows all commands. No focal deficits, speech is clear and fluent. Results Labs 12/20/24 18:52 12/20/24 18:52 Labs: Short CBC 12/20/24 Range/Units 18:52 WBC 10.9 H (4.5-10.0) K/mm3 Hgb 12.8 (12.0-15.0) g/dL Hct 39.5 (37.0-47.0) % Plt Count 299 (150-375) k/mm3 BMP 12/20/24 18:52 Sodium 138 Potassium 4.2 Chloride 103 Carbon Dioxide 25 BUN 18 H Creatinine 0.77 Glucose 131 H Calcium 9.3 Liver Function 12/20/24 Range/Units 18:52 Total Bilirubin 0.9 (0.2-1.3) mg/dL AST 221 H (14-36) U/L ALT 226 H (6-35) U/L Alkaline Phosphatase 334 H (38-126) U/L Albumin 4.3 (3.5-5.1) g/dL Urine 12/20/24 Range/Units 20:36 Urine Color Yellow (Yellow) Urine Appearance Clear (Clear) Urine pH 6.0 (5.0-9.0) Ur Specific [place] > 1.045 H (1.001-1.035) Urine Protein Negative (Negative) mg/dL Urine Glucose (UA) Negative (Negative) mg/dL
[2024-12-21 04:00] VITALS: BP 149/57; PULSE 86; RESP 18; TEMP 37.9; O2SAT 90
[2024-12-21 04:17] VITALS: BP 149/57; PULSE 86; RESP 18; TEMP 37.9; O2SAT 90
[2024-12-21 04:23] VITALS: TEMP 36.8
[2024-12-21 05:02] LABS: Hematocrit 36.8 % (37.0-47.0); Hemoglobin 11.9 g/dL (12.0-15.0); Immature Granulocyte Percent A 0.4 % (0-0.5); Lymphocytes Absolute Auto 0.98 K/mm3 (0.9-3.2); Mean Corpuscular HGB Conc 32.3 g/dl (32-36); Mean Corpuscular Hemoglobin 30.4 pg (26-34); Mean Corpuscular Volume 93.9 fl (80-100); Nucleated Red Blood Cells Absolute Auto 0.000 K/mm3 (0.0-0.012); Nucleated Red Blood Cells Perc 0.0 % (0.0-0.2); Platelet Count Result 278 k/mm3 (150-375); Red Blood Count 3.92 M/mm3 (4.2-5.4); White Blood Count 14.1 K/mm3 (4.5-10.0)
[2024-12-21 05:34] LABS: Alanine Aminotransferase 253 U/L (6-35); Albumin Level 3.8 g/dL (3.5-5.1); Alkaline Phosphatase 290 U/L (38-126); Anion Gap 5 mmol/L (4-12); Aspartate Amino Transferase 261 U/L (14-36); Bilirubin,Total 1.7 mg/dL (0.2-1.3); Blood Urea Nitrogen 11 mg/dL (7-17); Calcium 8.6 mg/dL (8.4-10.2); Carbon Dioxide 28 mmol/L (22-30); Chloride 104 mmol/L (98-107); Estimated CRCL calculation 61 ml/min; Estimated Glomerular Filt Rate > 60; Glucose 126 mg/dL (65-110); Magnesium 1.9 mg/dL (1.6-2.3); Potassium 4.7 mmol/L (3.4-5.0); Sodium 137 mmol/L (137-145); Total Protein 6.7 g/dL (6.3-8.2)
--- NOTE | 2024-12-21 07:13 | P.HP_ITS ---
H&P: HPI History of Present Illness Date/Time: 12/21/24 07:13 Chief Complaint: Patient is 79 yo female with past medical history of hypertension, hyperlipidemia, GERD who presented to the emergency department with epigastric abdominal pain. Patient was initially seen in the emergency department 11/26 with epigastric pain after eating fried fish. She was treated symptomatically and discharged with instructions to follow-up with GI. She followed up with her PCP who did not feel follow-up with GI was necessary at that time and was prescribed famotidine and pantoprazole. She re-presented to the ED 12/15 with similar symptoms after eating pizza. US of the gallbladder showed no acute process. She was again discharged and instructed to follow up with her primary care provider. In the outpatient setting, a HIDA scan was ordered however had not been obtained. Patient re-presented to the ED again with epigastric abdominal pain, but more severe in nature. She describes it as a sharp pain that radiates across her entire abdomen and her back. The pain is associated with nausea and vomiting. She denies prior history of gallbladder issues. Denies fever or chills at home. Denies chest pain, shortness a breath, urinary frequency or dysuria. Upon my evaluation, she has minimal pain, but did require administration of analgesics this morning. She currently denies nausea. Did note low-grade fever 102.2 the AM. In the ED, WBC 14, Hgb 11.9, glucose 126, t bili 1.7, AST 261, ALT 253, alk phos 290, lipase 20,027. UA with SG >1.045, positive nitrates, 2+ LE, 21-50 WBC, 4+ bacteria. CT A/P with acute interstitial pancreatitis and 1.4 cm indeterminate left adrenal nodule, likely adenoma. She was admitted for further work-up. Review of Systems Review of Systems: All systems reviewed & are unremarkable except as noted in HPI and below PMFSH Past Medical History Medical History (Updated 12/21/24 @ 11:46 by SAMEER Moore) Pulmonary nodule Lesion of adrenal gland Acute pancreatitis Obesity, Class I, BMI 30-34.9 Essential (primary) hypertension Hyperlipidemia Mammogram abnormal Surgical History Surgical History History of hysterectomy Family History Family History Mother Hypertension, Onset Age: 92 Social History Social History Smoking status: Never smoker Second hand tobacco smoke exposure: No Alcohol intake: never Substance use: never Substance use type: does not use Do You Feel Safe in your Home?: Yes Lack of Transportation: No Lack of Food: Never True Current Housing: I Have Housing Concerned About Future Housing: No Difficulty Paying Gas/Electric Bills: No Difficulty Paying for Meds: No Currently Unemployed: No Education: Associate Degree Difficulty w/ Childcare or Family Care: No Living arrangements: with family Occupation/Education: retired Gender identity (if verbalized by the patient): Female Spiritual care concerns: No Meds Home Medications and Allergies Home Medications ?Medication ?Instructions ?Recorded ?Confirmed ?Type ascorbic acid (vitamin C) 500 mg 500 mg PO DAILY 03/3012/20/24 History capsule cholecalciferol (vitamin D3) 25 1,000 unit PO DAILY 12/20/24 History mcg (1,000 unit) capsule pravastatin 20 mg tablet 20 mg PO DAILY 03/30/1911/27 History losartan 50 mg tablet 50 mg PO DAILY #90 tabs 05/3012/20/24 Rx fluticasone propionate 50 2 spray intranasal DAILY PRN nasal 04/29/23 12/20/24 Rx mcg/actuation nasal congestion #15.8 mL spray,suspension famotidine 20 mg tablet 20 mg PO DAILY #30 tabs 05/2212/20/24 Rx pantoprazole 40 mg tablet,delayed 40 mg PO HS 4 weeks #28 tabs 11/26/24 12/20/24 Rx release (Protonix) Allergies Allergy/AdvReac Type Severity Reaction Status Date / Time No Known Allergies Allergy Verified 12/20/24 17:56 Vital Signs Vital Signs - 24 hr 12/20/24 17:58 12/20/24 18:37 12/20/24 20:40 Temperature 97.8 F Pulse Rate 86 83 84 Respiratory Rate 15 20 22 H Blood Pressure 178/84 H 184/80 H 173/73 H Pulse Oximetry 97 98 96 Oxygen Delivery Room Air Room Air Oxygen Flow Rate 12/20/24 22:00 12/20/24 22:04 12/20/24 23:54 Temperature 98.1 F 99 F Pulse Rate 80 90 Respiratory Rate 18 18 Blood Pressure 157/62 H 165/56 H Pulse Oximetry 96 96 94 Oxygen Delivery Nasal Cannula Oxygen Flow Rate 2 12/21/24 04:00 12/21/24 04:17 12/21/24 04:23 Temperature 100.2 F H 100.2 F H 98.3 F Pulse Rate 86 86 Respiratory Rate 18 18 Blood Pressure 149/57 H 149/57 H Pulse Oximetry 90 90 Oxygen Delivery Oxygen Flow Rate Exam Narrative: General: NAD Eyes: EOMI ENT: neck supple Cardiovascular: Regular rate and rhythm Respiratory: Clear to auscultation, respirations even and unlabored on RA Gastrointestinal: Soft, mild RUQ tenderness with palpation, negative Rice's sign Genitourinary: no suprapubic tenderness Musculoskeletal: No edema Skin: warm, dry Neuro: Alert. Psych: Mood appropriate H&P: Results Labs Labs: Short CBC 12/20/24 12/21/24 Range/Units 18:52 04:52 WBC 10.9 H 14.1 H (4.5-10.0) K/mm3 Hgb 12.8 11.9 L (12.0-15.0) g/dL Hct 39.5 36.8 L (37.0-47.0) % Plt Count 299 278 (150-375) k/mm3 [facility] 12/20/24 12/21/24 18:52 04:52 Sodium 138 137 Potassium 4.2 4.7 Chloride 103 104 Carbon Dioxide 25 28 BUN 18 H 11 D Creatinine 0.77 0.69 L Glucose 131 H 126 H Calcium 9.3 8.6 Liver Function 12/20/24 12/21/24 Range/Units 18:52 04:52 Total Bilirubin 0.9 1.7 H (0.2-1.3) mg/dL AST 221 H 261 H (14-36) U/L ALT 226 H 253 H (6-35) U/L Alkaline Phosphatase 334 H 290 H (38-126) U/L Albumin 4.3 3.8 (3.5-5.1) g/dL Urine 12/20/24 Range/Units 20:36 Urine Color Yellow (Yellow) Urine Appearance Clear (Clear) Urine pH 6.0 (5.0-9.0) Ur Specific [place] > 1.045 H (1.001-1.035) Urine Protein Negative (Negative) mg/dL Urine Glucose (UA) Negative (Negative) mg/dL Assessment and Plan Assessment and plan (1) Acute pancreatitis: Code(s): K85.90 - Acute pancreatitis without necrosis or infection, unspecified Status: Acute Assessment and Plan: - US 12/15 showed diffuse hepatic steatosis, mildly dilated gallbladder - admit CT A/P with acute interstitial pancreatitis - suspect biliary in origin given RUQ abdominal pain and elevated LFTs - trend CMP - IV fluids, analgesics and antiemetics - NPO, advance diet per GI recs - GI consulted - planning to treat pancreatitis, repeat RUQ US. May obtain MRCP. Depending on results may consider general surgery consult for [facility]. (2) Transaminitis: Code(s): R74.01 - Elevation of levels of liver transaminase levels Status: Acute Assessment and Plan: -T bili 1.7, AST 261, ALT 253, alk-phos 290 - given leukocytosis, low grade fever - stop IV Rocephin, start IV Zosyn for possible cholangitis - obtain blood cultures -follow-up imaging as recommended by GI (3) Abnormal urinalysis: Code(s): R82.90 - Unspecified abnormal findings in urine Status: Acute Assessment and Plan: - UA with SG >1.045, positive nitrates, 2+ LE, 21-50 WBC, 4+ bacteria. - WBC 14, T max 100.2 - Urine culture 12/15/24 with E coli and GBS. Continue IV Rocephin - denies specific urinary symptoms. Currently on Zosyn. - repeat urine culture pending (4) Obesity, Class I, BMI 30-34.9: Code(s): E66.9 - Obesity, unspecified Status: Acute Assessment and Plan: - BMI 32.4 kg/m2 -lifestyle modifications as able (5) Hyperlipidemia: Code(s): E78.5 - Hyperlipidemia, unspecified Status: Acute Assessment and Plan: - hold statin due to elevated LFTs (6) Essential (primary) hypertension: Code(s): I10 - Essential (primary) hypertension Status: Acute Assessment and Plan: - continue home losartan (7) Lesion of adrenal gland: Code(s): E27.9 - Disorder of adrenal gland, unspecified Status: Acute Assessment and Plan: - CT showed left adrenal nodule, likely adenoma. Consider 12-month follow-up MRI Plan - Code status: full code, confirmed on admission - DVT prophylaxis: [facility] VTE Prophylaxis VTE prophylaxis: mechanical ordered Hospitalist MIPS Advance Care Plan I have confirmed that the patient's Advanced Care Plan is present, code status is documented, or surrogate decision maker is listed in patient medical record.: Yes Medication Reconciliation I have utilized all available resources to obtain, update and review the patients current medications (includes all prescriptions, OTC, herbals, cannabis, and nutritional supplements).: Yes The patient is not eligible for med reconciliation; the patient is in a emergent medical situation where delaying treatment would jeopardize the patients health.: No
[2024-12-21] MEDS: LACTATED RINGERS 1,000 ML 125 ML IV CONT ×2 (08:00→17:27)
[2024-12-21] MEDS: LOSARTAN POTASSIUM 50 MG TABLET PO (08:07)
[2024-12-21] MEDS: ASCORBIC ACID 500 MG TABLET PO (08:07)
[2024-12-21] MEDS: FAMOTIDINE 20 MG TABLET PO (08:07)
[2024-12-21] MEDS: PRAVASTATIN SODIUM 20 MG TABLET PO (08:07)
[2024-12-21] MEDS: CHOLECALCIFEROL (VITAMIN D3) 25 MCG (1,000 UNITS) TABLET PO (08:08)
[2024-12-21] MEDS: PIPERACILLIN/TAZOBACTAM SOD 3.375 GM in SODIUM CHLORIDE 0.9% IV 50 ML 100 ML IVPB ×4 (08:08→23:45)
[2024-12-21] MEDS: KETOROLAC 15 MG/ML VIAL (*BKC) IV PUSH ×2 (08:08→20:56)
[2024-12-21 12:00] VITALS: BP 137/58; PULSE 74; RESP 14; TEMP 36.6; O2SAT 94
--- NOTE | 2024-12-21 15:13 | PM.CNGS ---
Assessment and Plan Assessment and plan (1) Transaminitis: Code(s): R74.01 - Elevation of levels of liver transaminase levels Status: Acute Assessment and Plan: Patient presented to the ED yesterday with upper abdominal pain that started earlier in the afternoon. Patient had previously been seen on 2 other occasions the month for similar symptoms. CT and ultrasound imaging was performed and demonstrated a dilated gallbladder, but no inflammation or stones. She was originally scheduled for a HIDA scan on 12/21, but due to pain she came to the hospital a day earlier. Upon this admission, labs demonstrated a lipase of over 20,000. CT performed in the ED demonstrated pancreatitis. Patient denies history of heavy alcohol consumption. Right upper quadrant ultrasound was obtained today and demonstrated sludge within the gallbladder. Liver enzymes were elevated yesterday with a normal bilirubin. Today bilirubin was elevated at 1.7. Upon exam, patient has right upper quadrant tenderness with positive Rice sign. MRCP ordered by GI for tomorrow. We will follow up with these results and plan accordingly. Patient will likely need a laparoscopic cholecystectomy once pancreatitis is resolved. Continue IV Zosyn and pain management regimen. Okay to have full liquids tonight, but NPO at midnight. (2) Acute pancreatitis: Code(s): K85.90 - Acute pancreatitis without necrosis or infection, unspecified Status: Acute Assessment and Plan: Lipase over 20,000. Continue management per GI. Plan Discussed patient's case and plan of care with Dr. Aguilar. History of Present Illness Consult details Consult date: 12/21/24 Reason for consult: other (Gallstone pancreatitis) Requesting physician: Deanne Cody PA Narrative: Patient is a 79-year-old female with history of hypertension and hyperlipidemia who we have been asked to see in surgical consultation for possible gallstone pancreatitis. Patient presented to the ED yesterday evening with complaints of mid epigastric abdominal pain that started earlier in the day around 3 in the afternoon. This is patient's 3rd visit to the ED in the past month for these symptoms. Imaging on both previous occasions demonstrated a dilated gallbladder, but no inflammatory change, gallbladder wall thickening, or cholelithiasis. Labs at these times demonstrated elevated white blood cell count and fairly normal LFTs. Patient recalls eating fried fish and pizza before these previous episodes of abdominal pain. Upon this most recent admission, patient recalls eating ham sandwich yesterday before onset of pain. She did have 1 episode of emesis in the ED. She has not noticed any change in her bowel habits. Patient denies history of heavy alcohol consumption. Prior abdominal surgery includes hysterectomy. Repeat CT scan was obtained yesterday and demonstrated acute interstitial pancreatitis. Normal gallbladder. Abdominal ultrasound was ordered for today and results showed sludge within the gallbladder but no evidence of acute cholecystitis. Lipase elevated at . WBC was 10.9 yesterday, now 14.1. Patient had low-grade fever overnight. Liver enzymes yesterday were elevated but with normal bilirubin. Today bilirubin up to 1.7. LFTs remain elevated. When speaking with patient today she endorses right upper quadrant pain that is pretty well managed with current pain regimen. Of note, patient was originally scheduled for outpatient HIDA scan today, which has since been canceled. She is scheduled for MRCP tomorrow. [facility] Past Medical History Medical History (Updated 12/21/24 @ 11:46 by SAMEER Moore) Pulmonary nodule Lesion of adrenal gland Acute pancreatitis Obesity, Class I, BMI 30-34.9 Essential (primary) hypertension Hyperlipidemia Mammogram abnormal Surgical History Surgical History History of hysterectomy Family History Family History Mother Hypertension, Onset Age: 92 Social History Social History Smoking status: Never smoker Second hand tobacco smoke exposure: No Alcohol intake: never Substance use: never Substance use type: does not use Do You Feel Safe in your Home?: Yes Lack of Transportation: No Lack of Food: Never True Current Housing: I Have Housing Concerned About Future Housing: No Difficulty Paying Gas/Electric Bills: No Difficulty Paying for Meds: No Currently Unemployed: No Education: Associate Degree Difficulty w/ Childcare or Family Care: No Living arrangements: with family Occupation/Education: retired Gender identity (if verbalized by the patient): Female Spiritual care concerns: No Meds Home Medications and Allergies Home Medications ?Medication ?Instructions ?Recorded ?Confirmed ?Type ascorbic acid (vitamin C) 500 mg 500 mg PO DAILY 03/30/19 12/20/24 History capsule cholecalciferol (vitamin D3) 25 1,000 unit PO DAILY 03/30/19 12/20/24 History mcg (1,000 unit) capsule pravastatin 20 mg tablet 20 mg PO DAILY 03/30/19 12/20/24 History losartan 50 mg tablet 50 mg PO DAILY #90 tabs 06/19/22 12/20/24 Rx fluticasone propionate 50 2 spray intranasal DAILY PRN nasal 04/29/23 12/20/24 Rx mcg/actuation nasal congestion #15.8 mL spray,suspension famotidine 20 mg tablet 20 mg PO DAILY #30 tabs 11/26/24 12/20/24 Rx pantoprazole 40 mg tablet,delayed 40 mg PO HS 4 weeks #28 tabs 11/26/24 12/20/24 Rx release (Protonix) Allergies Allergy/AdvReac Type Severity Reaction Status Date / Time No Known Allergies Allergy Verified 12/20/24 17:56 Vital Signs Vital Signs - 24 hr 12/20/24 17:58 12/20/24 18:37 12/20/24 20:40 Temperature 97.8 F Pulse Rate 86 83 84 Respiratory Rate 15 20 22 H Blood Pressure 178/84 H 184/80 H 173/73 H Pulse Oximetry 97 98 96 Oxygen Delivery Room Air Room Air Oxygen Flow Rate 12/20/24 22:00 12/20/24 22:04 12/20/24 23:54 Temperature 98.1 F 99 F Pulse Rate 80 90 Respiratory Rate 18 18 Blood Pressure 157/62 H 165/56 H Pulse Oximetry 96 96 94 Oxygen Delivery Nasal Cannula Oxygen Flow Rate 2 12/21/24 04:00 12/21/24 04:17 12/21/24 04:23 Temperature 100.2 F H 100.2 F H 98.3 F Pulse Rate 86 86 Respiratory Rate 18 18 Blood Pressure 149/57 H 149/57 H Pulse Oximetry 90 90 Oxygen Delivery Oxygen Flow Rate 12/21/24 08:10 Temperature Pulse Rate Respiratory Rate Blood Pressure Pulse Oximetry Oxygen Delivery Room Air Oxygen Flow Rate Exam Const: General: comfortable and no acute distress Eyes: General: appearance normal, both eyes and all related structures Neck: Neck: supple Resp: Effort & Inspection: normal respiratory effort Cardio: Rate: regular rate GI: Inspection: non-distended GI Palp: Yes Soft to palpation, Yes Tenderness to palpation present (GI) (Right upper quadrant pain) and Yes Guarding due to palpation present (GI) : General: Yes bladder normal to palpation Skin: General skin exam: normal color and no rashes or lesions noted Neuro: General: gait normal Extrem: General: normal to inspection Psych: Mental Status: mental status grossly normal Results Labs 12/21/24 04:52 12/21/24 04:52 Labs: Abnormal lab results 12/20/24 12/20/24 12/21/24 Range/Units 18:52 20:36 04:52 WBC 10.9 H 14.1 H (4.5-10.0) K/mm3 RBC 3.92 L (4.2-5.4) M/mm3 Hgb 11.9 L (12.0-15.0) g/dL Hct 36.8 L (37.0-47.0) % Neut % (Auto) 84.5 H 88.1 H (45.5-73.1) % Lymph % (Auto) 8.1 L 7.0 L (18.3-44.2) % Baso % (Auto) 0.1 L (0.2-1.2) % Lymph # (Auto) 0.89 L (0.9-3.2) K/mm3 Abs Immat Gran (auto) 0.06 H (0.00-0.031) K/mm3 Absolute Neuts (auto) 9.3 H 12.4 H (1.3-6.7) K/mm3 BUN 18 H (7-17) mg/dL Creatinine 0.69 L (0.7-1.0) mg/dL Glucose 131 H 126 H (65-110) mg/dL Total Bilirubin 1.7 H (0.2-1.3) mg/dL AST 221 H 261 H (14-36) U/L ALT 226 H 253 H (6-35) U/L Alkaline Phosphatase 334 H 290 H (38-126) U/L Lipase 04393 H (23-300) U/L Ur Specific [place] > 1.045 H (1.001-1.035) Urine Nitrate Positive H (Negative) Leukocyte Esterase Rfl 2+ H (Negative) LAURO/UL Urine WBC 21-50 H (0-3) /hpf Urine Bacteria 4+ H /hpf Diabetes panel 12/20/24 12/21/24 Range/Units 18:52 04:52 Sodium 138 137 (137-145) mmol/L Potassium 4.2 4.7 (3.4-5.0) mmol/L Chloride 103 104 (98-107) mmol/L Carbon Dioxide 25 28 (22-30) mmol/L BUN 18 H 11 D (7-17) mg/dL Creatinine 0.77 0.69 L (0.7-1.0) mg/dL Glucose 131 H 126 H (65-110) mg/dL Calcium 9.3 8.6 (8.4-10.2) mg/dL AST 221 H 261 H (14-36) U/L ALT 226 H 253 H (6-35) U/L Alkaline Phosphatase 334 H 290 H (38-126) U/L Total Protein 7.8 6.7 (6.3-8.2) g/dL Albumin 4.3 3.8 (3.5-5.1) g/dL Calcium panel 12/20/24 12/21/24 Range/Units 18:52 04:52 Calcium 9.3 8.6 (8.4-10.2) mg/dL Albumin 4.3 3.8 (3.5-5.1) g/dL Pituitary panel 12/20/24 12/21/24 Range/Units 18:52 04:52 Sodium 138 137 (137-145) mmol/L Potassium 4.2 4.7 (3.4-5.0) mmol/L Chloride 103 104 (98-107) mmol/L Carbon Dioxide 25 28 (22-30) mmol/L BUN 18 H 11 D (7-17) mg/dL Creatinine 0.77 0.69 L (0.7-1.0) mg/dL Glucose 131 H 126 H (65-110) mg/dL Calcium 9.3 8.6 (8.4-10.2) mg/dL Adrenal panel 12/20/24 12/21/24 Range/Units 18:52 04:52 Sodium 138 137 (137-145) mmol/L Potassium 4.2 4.7 (3.4-5.0) mmol/L Chloride 103 104 (98-107) mmol/L Carbon Dioxide 25 28 (22-30) mmol/L BUN 18 H 11 D (7-17) mg/dL Creatinine 0.77 0.69 L (0.7-1.0) mg/dL Glucose 131 H 126 H (65-110) mg/dL Calcium 9.3 8.6 (8.4-10.2) mg/dL Total Bilirubin 0.9 1.7 H (0.2-1.3) mg/dL AST 221 H 261 H (14-36) U/L ALT 226 H 253 H (6-35) U/L Alkaline Phosphatase 334 H 290 H (38-126) U/L Total Protein 7.8 6.7 (6.3-8.2) g/dL Albumin 4.3 3.8 (3.5-5.1) g/dL All other labs normal.
[2024-12-21 16:00] VITALS: BP 142/58; PULSE 88; RESP 14; O2SAT 92
--- NOTE | 2024-12-21 17:39 | WPDGIPROGNO ---
Progress Note: A&P Assessment and Plan (1) Acute pancreatitis: Code(s): K85.90 - Acute pancreatitis without necrosis or infection, unspecified Status: Acute Assessment and Plan: The patient's diagnosis of biliary pancreatitis is now more solid due to the presence of sludge on her sonogram. Although her transaminases haven't improved, they have remained stable. An MRCP will be performed to get a better view of her biliary tree before her planned surgery. Her condition is improving, as evidenced by the decrease in her white blood cell count from 14.1 to 10.9 and the adequate dilution of her hematocrit to 36.8, with a normal BUN level. Will decrease fluid rate to 50% since the main goal of preventing necrosis was met during the first 48 hours. Subjective Date/time seen: 12/21/24 17:39 Interval history: Patient experiences still some abdominal pain, although much less than yesterday. Objective Data Vital Signs Vital Signs: Vital Signs - 24 hr 12/20/24 17:58 12/20/24 18:37 12/20/24 20:40 Temperature 97.8 F Pulse Rate 86 83 84 Respiratory Rate 15 20 22 H Blood Pressure 178/84 H 184/80 H 173/73 H Pulse Oximetry 97 98 96 Oxygen Delivery Room Air Room Air Oxygen Flow Rate 12/20/24 22:00 12/20/24 22:04 12/20/24 23:54 Temperature 98.1 F 99 F Pulse Rate 80 90 Respiratory Rate 18 18 Blood Pressure 157/62 H 165/56 H Pulse Oximetry 96 96 94 Oxygen Delivery Nasal Cannula Oxygen Flow Rate 2 12/21/24 04:00 12/21/24 04:17 12/21/24 04:23 Temperature 100.2 F H 100.2 F H 98.3 F Pulse Rate 86 86 Respiratory Rate 18 18 Blood Pressure 149/57 H 149/57 H Pulse Oximetry 90 90 Oxygen Delivery Oxygen Flow Rate 12/21/24 08:10 12/21/24 12:00 12/21/24 16:00 Temperature 97.9 F Pulse Rate 74 88 Respiratory Rate 14 14 Blood Pressure 137/58 L 142/58 H Pulse Oximetry 94 92 Oxygen Delivery Room Air Oxygen Flow Rate Intake/Output Intake/Output: Intake & Output 12/18/24 12/19/24 12/20/24 12/21/24 23:59 23:59 23:59 23:59 Intake Total 50 1750 Balance 50 1750 Meds/Results Medications: Active Medications Generic Name Dose Route Start Last Admin Trade Name Freq PRN Reason Stop Dose Admin Ascorbic Acid 500 mg 12/21/24 09:00 12/21/24 08:07 Ascorbic Acid 500 Mg Tablet PO 500 mg DAILY YOJANA Administration Famotidine 20 mg 12/21/24 09:00 12/21/24 08:07 Famotidine 20 Mg Tablet PO 20 mg DAILY YOJANA Administration Fluticasone Propionate 2 spray 12/20/24 22:28 Fluticasone Propionate 0.05% Na Spr 16 Gm Btl (*Bkc) NASAL DAILY PRN Nasal Congestion Piperacillin Sod/Tazobactam 50 mls @ 100 mls/hr 12/21/24 07:35 12/21/24 17:23 Sod 3.375 gm/ Sodium Chloride IVPB 100 mls/hr Q6HR YOJANA Administration Lactated Ringer's 1,000 mls @ 125 mls/hr 12/21/24 07:40 12/21/24 17:27 Lr - Lactated Ringers Iv IV CONT 125 mls/hr .Q8H YOJANA Administration Ketorolac Tromethamine 15 mg 12/20/24 22:28 12/21/24 08:08 Ketorolac 15 Mg/Ml Vial (*Bkc) IV PUSH 15 mg Q6H PRN Administration Pain Rated 4-6 Losartan Potassium 50 mg 12/21/24 09:00 12/21/24 08:07 Losartan Potassium 50 Mg Tablet PO 50 mg DAILY YOJANA Administration Morphine Sulfate 4 mg 12/20/24 22:28 Morphine Sulfate (*Crx) 4 Mg/Ml Inj IV PUSH Q4H PRN Pain Rated 7-10 Ondansetron HCl 4 mg 12/20/24 22:31 Ondansetron Inj 4 Mg/2 Ml Vial IV PUSH Q4H PRN Nausea And Vomiting Pantoprazole Sodium 40 mg 12/21/24 21:00 Pantoprazole 40 Mg Tablet PO HS YOJANA Pravastatin Sodium 20 mg 12/21/24 09:00 12/21/24 08:07 Pravastatin Sodium 20 Mg Tablet PO 20 mg On Hold: 12/21/24 16:13 DAILY YOJANA Administration Vitamin D 25 mcg 12/21/24 09:00 12/21/24 08:08 Cholecalciferol (Vitamin D3) 25 Mcg (1,000 Units) Tablet PO 25 mcg DAILY YOJANA Administration Radiology Results: ITS Impressions Abdomen/Pelvis CT 12/20/24 20:06 IMPRESSION: 1. Acute interstitial pancreatitis. 2. 1.4 cm indeterminate left adrenal nodule which in the absence of known malignancy most likely represents an adenoma. Consider 12 month follow-up pre and postcontrast CT or MRI. Abdomen Ultrasound 12/21/24 11:18 Impression: 1. Limited study. Sludge within the gallbladder. No evidence of acute cholecystitis. 2. Mild hepatic steatosis versus hepatocellular disease. Labs Labs: Laboratory Results - last 24 hr 12/20/24 12/20/24 12/21/24 18:52 20:36 04:52 WBC 10.9 H 14.1 H RBC 4.27 3.92 L Hgb 12.8 11.9 L Hct 39.5 36.8 L MCV 92.5 93.9 MCH 30.0 30.4 MCHC 32.4 32.3 RDW 13.2 13.5 Plt Count 299 278 MPV 10.1 9.9 Immature Gran % (Auto) 0.3 0.4 Neut % (Auto) 84.5 H 88.1 H Lymph % (Auto) 8.1 L 7.0 L [place] % (Auto) 5.3 4.3 Eos % (Auto) 1.4 0.1 Baso % (Auto) 0.4 0.1 L Lymph # (Auto) 0.89 L 0.98 [place] # (Auto) 0.6 0.6 Eos # (Auto) 0.2 0.0 Baso # (Auto) 0.0 0.0 Abs Immat Gran (auto) 0.03 0.06 H Absolute Neuts (auto) 9.3 H 12.4 H Absolute Nucleated RBC 0.000 0.000 Nucleated RBC % 0.0 0.0 Sodium 138 137 Potassium 4.2 4.7 Chloride 103 104 Carbon Dioxide 25 28 Anion Gap 10 5 BUN 18 H 11 D Creatinine 0.77 0.69 L Estim Creat Clear Calc 55 61 Estimated GFR > 60 > 60 Glucose 131 H 126 H Calcium 9.3 8.6 Magnesium 2.1 1.9 Total Bilirubin 0.9 1.7 H AST 221 H 261 H ALT 226 H 253 H Alkaline Phosphatase 334 H 290 H Total Protein 7.8 6.7 Albumin 4.3 3.8 Lipase 17453 H Urine Color Yellow Urine Appearance Clear Urine pH 6.0 Ur Specific [place] > 1.045 H Urine Protein Negative Urine Glucose (UA) Negative Urine Ketones Negative Ur Blood (Man) Negative Urine Nitrate Positive H Urine Bilirubin Negative Urine Urobilinogen 1.0 Leukocyte Esterase Rfl 2+ H Urine RBC 0-2 Urine WBC 21-50 H Ur Squamous Epith Cells Few Urine Bacteria 4+ H Urine Casts 0-2
[2024-12-21 19:43] VITALS: BP 134/57; PULSE 83; RESP 20; TEMP 37.4; O2SAT 91
[2024-12-21] MEDS: PANTOPRAZOLE 40 MG TABLET PO (20:56)
[2024-12-22] VITALS: BP 146/61; PULSE 81; RESP 20; TEMP 36.4; O2SAT 91
[2024-12-22 04:00] VITALS: BP 151/59; PULSE 84; RESP 20; TEMP 36.7; O2SAT 92
[2024-12-22] MEDS: LACTATED RINGERS 1,000 ML 125 ML IV CONT (05:06)
[2024-12-22] MEDS: PIPERACILLIN/TAZOBACTAM SOD 3.375 GM in SODIUM CHLORIDE 0.9% IV 50 ML 100 ML IVPB ×4 (05:06→23:23)
[2024-12-22 05:24] LABS: Hematocrit 32.5 % (37.0-47.0); Hemoglobin 10.5 g/dL (12.0-15.0); Immature Granulocyte Percent A 0.4 % (0-0.5); Lymphocytes Absolute Auto 1.00 K/mm3 (0.9-3.2); Mean Corpuscular HGB Conc 32.3 g/dl (32-36); Mean Corpuscular Hemoglobin 30.1 pg (26-34); Mean Corpuscular Volume 93.1 fl (80-100); Nucleated Red Blood Cells Absolute Auto 0.000 K/mm3 (0.0-0.012); Nucleated Red Blood Cells Perc 0.0 % (0.0-0.2); Platelet Count Result 226 k/mm3 (150-375); Red Blood Count 3.49 M/mm3 (4.2-5.4); White Blood Count 11.7 K/mm3 (4.5-10.0)
[2024-12-22 05:34] LABS: INR 1.4; Prothrombin Time 16.9 Seconds (11.1-14.7)
[2024-12-22 05:35] LABS: Partial Thromboplastin Time 40.3 Seconds (22.3-36.8)
[2024-12-22 05:52] LABS: Alanine Aminotransferase 204 U/L (6-35); Albumin Level 3.3 g/dL (3.5-5.1); Alkaline Phosphatase 208 U/L (38-126); Anion Gap 7 mmol/L (4-12); Aspartate Amino Transferase 131 U/L (14-36); Bilirubin,Total 1.3 mg/dL (0.2-1.3); Blood Urea Nitrogen 11 mg/dL (7-17); Calcium 8.5 mg/dL (8.4-10.2); Carbon Dioxide 24 mmol/L (22-30); Chloride 105 mmol/L (98-107); Estimated CRCL calculation 63 ml/min; Estimated Glomerular Filt Rate > 60; Glucose 94 mg/dL (65-110); Lipase 1460 U/L (23-300); Magnesium 2.0 mg/dL (1.6-2.3); Potassium 3.7 mmol/L (3.4-5.0); Sodium 136 mmol/L (137-145); Total Protein 6.1 g/dL (6.3-8.2)
--- NOTE | 2024-12-22 07:17 | P.PNIM_ITS ---
Progress Note: A&P Assessment and Plan (1) Acute pancreatitis: Code(s): K85.90 - Acute pancreatitis without necrosis or infection, unspecified Status: Acute Assessment and Plan: * US 12/15 showed diffuse hepatic steatosis, mildly dilated gallbladder * admit CT A/P with acute interstitial pancreatitis * suspect biliary in origin given RUQ abdominal pain and elevated LFTs * trend CMP * IV fluids, analgesics and antiemetics * NPO, advance diet per GI recs * GI consulted - planning to treat pancreatitis, repeat RUQ US * General Surgery consult * MRCP today - pending results * Treat pancreatitis - lap colton following (2) Transaminitis: Code(s): R74.01 - Elevation of levels of liver transaminase levels Status: Acute Assessment and Plan: * T bili 1.7, AST 261, ALT 253, alk-phos 290 * given leukocytosis, low grade fever - stop IV Rocephin, start IV Zosyn for po ssible cholangitis * obtain blood cultures * follow-up imaging as recommended by GI * 12/22 - AST/ALT 204/208 (3) Abnormal urinalysis: Code(s): R82.90 - Unspecified abnormal findings in urine Status: Acute Assessment and Plan: * UA with SG >1.045, positive nitrates, 2+ LE, 21-50 WBC, 4+ bacteria. * WBC 14, T max 100.2 * Urine culture 12/15/24 with E coli and GBS. Continue IV Rocephin * denies specific urinary symptoms. Currently on Zosyn. * repeat urine culture pending (4) Obesity, Class I, BMI 30-34.9: Code(s): E66.9 - Obesity, unspecified Status: Acute Assessment and Plan: * BMI 32.4 kg/m2 * lifestyle modifications as able (5) Hyperlipidemia: Code(s): E78.5 - Hyperlipidemia, unspecified Status: Acute Assessment and Plan: * hold statin due to elevated LFTs (6) Essential (primary) hypertension: Code(s): I10 - Essential (primary) hypertension Status: Acute Assessment and Plan: * continue home losartan (7) Lesion of adrenal gland: Code(s): E27.9 - Disorder of adrenal gland, unspecified Status: Acute Assessment and Plan: * CT showed left adrenal nodule, likely adenoma. Consider 12-month follow-up MRI Plan - Code status: full code, confirmed on admission - DVT prophylaxis: SCDs Subjective Date/time seen: 12/22/24 07:17 Interval history: 79 yo female with past medical history of hypertension, hyperlipidemia, GERD who presents with epigastric abdominal pain. Patient was initially seen in the ED 11/26 with epigastric pain after eating fried fish. She was treated symptomatically and dc'ed with instructions to f/u with GI. She followed with her PCP and was prescribed famotidine and pantoprazole. She re-presented to the ED 12/15 with similar symptoms after eating pizza. 12/22/2024 Patient sitting comfortably in bed at time of exam. MRCP completed this morning - pending results. General surgery following, maintain npo status for possible laparoscopic cholecystectomy today depending on MRCP results. Still endorsing RUQ abdominal discomfort but otherwise feeling well. Review of Systems Review of Systems: All systems reviewed & are unremarkable except as noted in HPI and below Exam Narrative: General: NAD Eyes: EOMI ENT: neck supple Cardiovascular: Regular rate and rhythm Respiratory: Clear to auscultation, respirations even and unlabored on RA Gastrointestinal: Soft, mild RUQ tenderness with palpation, negative Rice's sign Genitourinary: no suprapubic tenderness Musculoskeletal: No edema Skin: warm, dry Neuro: Alert. Psych: Mood appropriate Objective Data Vital Signs Vital Signs: Vital Signs - 24 hr 12/21/24 08:10 12/21/24 12:00 12/21/24 16:00 Temperature 97.9 F Pulse Rate 74 88 Respiratory Rate 14 14 Blood Pressure 137/58 L 142/58 H Pulse Oximetry 94 92 Oxygen Delivery Room Air 12/21/24 19:43 12/22/24 00:00 12/22/24 04:00 Temperature 99.4 F 97.6 F 98.0 F Pulse Rate 83 81 84 Respiratory Rate 20 20 20 Blood Pressure 134/57 L 146/61 H 151/59 H Pulse Oximetry 91 91 92 Oxygen Delivery Intake/Output Intake/Output: Intake & Output 0812/20/24 12/21/24 12/22/24 23:59 23:59 23:59 23:59 Intake Total 50 2180 1100 Balance 50 2180 1100 Meds/Results Medications: Active Medications Generic Name Dose Route Start Last Admin Trade Name Freq PRN Reason Stop Dose Admin Ascorbic Acid 500 mg 12/21/24 09:00 12/21/24 08:07 Ascorbic Acid 500 Mg Tablet PO 500 mg DAILY YOJANA Administration Famotidine 20 mg 12/21/24 09:00 12/21/24 08:07 Famotidine 20 Mg Tablet PO 20 mg DAILY YOJANA Administration Fluticasone Propionate 2 spray 12/20/24 22:28 Fluticasone Propionate 0.05% Na Spr 16 Gm Btl (*Bkc) NASAL DAILY PRN Nasal Congestion Piperacillin Sod/Tazobactam 50 mls @ 100 mls/hr 12/21/24 07:35 12/22/24 05:36 Sod 3.375 gm/ Sodium Chloride IVPB Infused Q6HR YOJANA Infusion Lactated Ringer's 1,000 mls @ 75 mls/hr 12/21/24 07:40 12/22/24 05:06 Lr - Lactated Ringers Iv IV CONT 125 mls/hr .[id number] YOJANA Administration Ketorolac Tromethamine 15 mg 12/20/24 22:28 12/21/24 20:56 Ketorolac 15 Mg/Ml Vial (*Bkc) IV PUSH 15 mg Q6H PRN Administration Pain Rated 4-6 Losartan Potassium 50 mg 12/21/24 09:00 12/21/24 08:07 Losartan Potassium 50 Mg Tablet PO 50 mg DAILY YOJANA Administration Morphine Sulfate 4 mg 12/20/24 22:28 Morphine Sulfate (*Crx) 4 Mg/Ml Inj IV PUSH Q4H PRN Pain Rated 7-10 Ondansetron HCl 4 mg 12/20/24 22:31 Ondansetron Inj 4 Mg/2 Ml Vial IV PUSH Q4H PRN Nausea And Vomiting Pantoprazole Sodium 40 mg 12/21/24 21:00 12/21/24 20:56 Pantoprazole 40 Mg Tablet PO 40 mg HS YOJANA Administration Pravastatin Sodium 20 mg 12/21/24 09:00 12/21/24 08:07 Pravastatin Sodium 20 Mg Tablet PO 20 mg On Hold: 12/21/24 16:13 DAILY YOJANA Administration Vitamin D 25 mcg 12/21/24 09:00 12/21/24 08:08 Cholecalciferol (Vitamin D3) 25 Mcg (1,000 Units) Tablet PO 25 mcg DAILY YOJANA Administration Radiology Results: ITS Impressions Abdomen/Pelvis CT 12/20/24 20:06 IMPRESSION: 1. Acute interstitial pancreatitis. 2. 1.4 cm indeterminate left adrenal nodule which in the absence of known malignancy most likely represents an adenoma. Consider 12 month follow-up pre and postcontrast CT or MRI. Abdomen Ultrasound 12/21/24 11:18 Impression: 1. Limited study. Sludge within the gallbladder. No evidence of acute cholecystitis. 2. Mild hepatic steatosis versus hepatocellular disease. Labs Labs: Laboratory Results - last 24 hr 12/22/24 05:00 WBC 11.7 H RBC 3.49 L Hgb 10.5 L Hct 32.5 L MCV 93.1 MCH 30.1 MCHC 32.3 RDW 13.6 Plt Count 226 MPV 10.1 Immature Gran % (Auto) 0.4 Neut % (Auto) 81.3 H Lymph % (Auto) 8.6 L [place] % (Auto) 6.9 Eos % (Auto) 2.5 Baso % (Auto) 0.3 Lymph # (Auto) 1.00 [place] # (Auto) 0.8 H Eos # (Auto) 0.3 Baso # (Auto) 0.0 Abs Immat Gran (auto) 0.05 H Absolute Neuts (auto) 9.5 H Absolute Nucleated RBC 0.000 Nucleated RBC % 0.0 PT 16.9 H INR 1.4 APTT 40.3 H Sodium 136 L Potassium 3.7 Chloride 105 Carbon Dioxide 24 Anion Gap 7 BUN 11 Creatinine 0.67 L Estim Creat Clear Calc 63 Estimated GFR > 60 Glucose 94 Calcium 8.5 Magnesium 2.0 Total Bilirubin 1.3 AST 131 H ALT 204 H Alkaline Phosphatase 208 H Total Protein 6.1 L Albumin 3.3 L Lipase 1460 H Quality VTE Prophylaxis VTE prophylaxis: mechanical ordered
[2024-12-22 08:00] VITALS: BP 152/61; PULSE 62; RESP 16; TEMP 36.8; O2SAT 100
[2024-12-22] MEDS: CHOLECALCIFEROL (VITAMIN D3) 25 MCG (1,000 UNITS) TABLET PO (09:24)
[2024-12-22] MEDS: FAMOTIDINE 20 MG TABLET PO (09:24)
[2024-12-22] MEDS: LOSARTAN POTASSIUM 50 MG TABLET PO (09:24)
[2024-12-22] MEDS: PHYTONADIONE ADULT INJ 10 MG in DEXTROSE 5% IN WATER 50 ML 100 MG IVPB (09:24)
[2024-12-22] MEDS: ASCORBIC ACID 500 MG TABLET PO (09:24)
[2024-12-22] MEDS: ACETAMINOPHEN 325 MG TABLET 650 MG PO (10:04)
--- NOTE | 2024-12-22 10:14 | P.PNGS_ITS ---
Progress Note: A&P Assessment and Plan (1) Acute pancreatitis: Code(s): K85.90 - Acute pancreatitis without necrosis or infection, unspecified Status: Acute Assessment and Plan: * Pancreatitis improving. Abdominal pain and exam better today. Lipase down from 20,000 to 1,400. * MRCP results pending * Will keep her NPO for now * Continue IV fluids and medical management * Discussed proceeding with a laparoscopic cholecystectomy, potentially today depending on MRCP results. Description of the procedure, risks, benefits, alternatives, and expected recovery were discussed with the patient in detail. We discussed the risks of bile leak and bile duct injury, liver/bowel injury, bleeding, and infection. Also discussed the possibility of having to convert to an open procedure if necessary. All questions were answered and she agrees to proceed when appropriate (2) Gallbladder sludge: Code(s): K82.8 - Other specified diseases of gallbladder Status: Acute Assessment and Plan: * GB sludge noted on imaging. (3) Transaminitis: Code(s): R74.01 - Elevation of levels of liver transaminase levels Status: Acute Assessment and Plan: * LFTs trending down, total bilirubin 1.3 today. MRCP pending. Plan Discussed patient's case and plan of care with Dr. Aguilar. Subjective Subjective Date/Time Seen: 12/22/24 10:14 Patient reports: no new complaints, feels better, pain is less and afebrile Interval history: Patient feels much better today. Reports some mild cramping mid abdominal pain. Significantly improved since admission. No nausea or vomiting. Lipase down to 1400 today. Exam Const: General: comfortable and no acute distress GI: Inspection: non-distended GI Palp: Yes Soft to palpation, Yes Tend erness to palpation present (GI) (epigastric and RUQ tenderness), No Guarding due to palpation present (GI) and No Rebound tenderness present Auscultation: normal bowel sounds Objective Data Vital Signs Vital Signs: Vital Signs - 24 hr 12/21/24 12:00 12/21/24 16:00 12/21/24 19:43 Temperature 97.9 F 99.4 F Pulse Rate 74 88 83 Respiratory Rate 14 14 20 Blood Pressure 137/58 L 142/58 H 134/57 L Pulse Oximetry 94 92 91 12/22/24 00:00 12/22/24 04:00 12/22/24 08:00 Temperature 97.6 F 98.0 F 98.3 F Pulse Rate 81 84 62 Respiratory Rate 20 20 16 Blood Pressure 146/61 H 151/59 H 152/61 H Pulse Oximetry 91 92 100 Intake/Output Intake/Output: Intake & Output 12/19/24 12/20/24 12/21/24 12/22/24 23:59 23:59 23:59 23:59 Intake Total 50 2180 1100 Balance 50 2180 1100 Meds/Results Medications: Active Medications Generic Name Dose Route Start Last Admin Trade Name Freq PRN Reason Stop Dose Admin Acetaminophen 650 mg 12/22/24 09:39 12/22/24 10:04 Acetaminophen 325 Mg Tablet PO 650 mg Q6H PRN Administration Mild Pain (1-3) or Fever Ascorbic Acid 500 mg 12/21/24 09:00 12/22/24 09:24 Ascorbic Acid 500 Mg Tablet PO 500 mg DAILY YOJANA Administration Famotidine 20 mg 12/21/24 09:00 12/22/24 09:24 Famotidine 20 Mg Tablet PO 20 mg DAILY YOJANA Administration Fluticasone Propionate 2 spray 12/20/24 22:28 Fluticasone Propionate 0.05% Na Spr 16 Gm Btl (*Bkc) NASAL DAILY PRN Nasal Congestion Piperacillin Sod/Tazobactam 50 mls @ 100 mls/hr 12/21/24 07:35 12/22/24 05:36 Sod 3.375 gm/ Sodium Chloride IVPB Infused Q6HR YOJANA Infusion Lactated Ringer's 1,000 mls @ 75 mls/hr 12/21/24 07:40 12/22/24 05:06 Lr - Lactated Ringers Iv IV CONT 125 mls/hr .[id number] YOJANA Administration Ketorolac Tromethamine 15 mg 12/20/24 22:28 12/21/24 20:56 Ketorolac 15 Mg/Ml Vial (*Bkc) IV PUSH 15 mg Q6H PRN Administration Pain Rated 4-6 Losartan Potassium 50 mg 12/21/24 09:00 12/22/24 09:24 Losartan Potassium 50 Mg Tablet PO 50 mg DAILY YOJANA Administration Morphine Sulfate 4 mg 12/20/24 22:28 Morphine Sulfate (*Crx) 4 Mg/Ml Inj IV PUSH Q4H PRN Pain Rated 7-10 Ondansetron HCl 4 mg 12/20/24 22:31 Ondansetron Inj 4 Mg/2 Ml Vial IV PUSH Q4H PRN Nausea And Vomiting Pantoprazole Sodium 40 mg 12/21/24 21:00 12/21/24 20:56 Pantoprazole 40 Mg Tablet PO 40 mg HS YOJANA Administration Pravastatin Sodium 20 mg 12/21/24 09:00 12/21/24 08:07 Pravastatin Sodium 20 Mg Tablet PO 20 mg On Hold: 12/21/24 16:13 DAILY YOJANA Administration Vitamin D 25 mcg 12/21/24 09:00 12/22/24 09:24 Cholecalciferol (Vitamin D3) 25 Mcg (1,000 Units) Tablet PO 25 mcg DAILY YOJANA Administration Radiology Results: ITS Impressions Abdomen/Pelvis CT 12/20/24 20:06 IMPRESSION: 1. Acute interstitial pancreatitis. 2. 1.4 cm indeterminate left adrenal nodule which in the absence of known malignancy most likely represents an adenoma. Consider 12 month follow-up pre and postcontrast CT or MRI. Abdomen Ultrasound 12/21/24 11:18 Impression: 1. Limited study. Sludge within the gallbladder. No evidence of acute cholecystitis. 2. Mild hepatic steatosis versus hepatocellular disease. Labs Labs: Laboratory Results - last 24 hr 12/22/24 05:00 WBC 11.7 H RBC 3.49 L Hgb 10.5 L Hct 32.5 L MCV 93.1 MCH 30.1 MCHC 32.3 RDW 13.6 Plt Count 226 MPV 10.1 Immature Gran % (Auto) 0.4 Neut % (Auto) 81.3 H Lymph % (Auto) 8.6 L [place] % (Auto) 6.9 Eos % (Auto) 2.5 Baso % (Auto) 0.3 Lymph # (Auto) 1.00 [place] # (Auto) 0.8 H Eos # (Auto) 0.3 Baso # (Auto) 0.0 Abs Immat Gran (auto) 0.05 H Absolute Neuts (auto) 9.5 H Absolute Nucleated RBC 0.000 Nucleated RBC % 0.0 PT 16.9 H INR 1.4 APTT 40.3 H Sodium 136 L Potassium 3.7 Chloride 105 Carbon Dioxide 24 Anion Gap 7 BUN 11 Creatinine 0.67 L Estim Creat Clear Calc 63 Estimated GFR > 60 Glucose 94 Calcium 8.5 Magnesium 2.0 Total Bilirubin 1.3 AST 131 H ALT 204 H Alkaline Phosphatase 208 H Total Protein 6.1 L Albumin 3.3 L Lipase 1460 H
--- NOTE | 2024-12-22 11:30 | P.PNGI_ITS ---
Progress Note: A&P Assessment and Plan (1) Acute pancreatitis: Code(s): K85.90 - Acute pancreatitis without necrosis or infection, unspecified Status: Acute Assessment and Plan: Patient with biliary pancreatitis having a favorable clinical course. Transaminases and bilirubin trending down. MRCP not officially read yet but to my interpretation the common bile duct has a normal caliber and no evidence of obstruction. Suggest going forward with surgery team's plan including intraoperative cholangiogram. Please re-consult us if there is any need for postoperative ERCP. (2) Gallbladder sludge: Code(s): K82.8 - Other specified diseases of gallbladder Status: Acute Subjective Date/time seen: 12/22/24 11:30 Objective Data Vital Signs Vital Signs: Vital Signs - 24 hr 12/21/24 12:00 12/21/24 16:00 12/21/24 19:43 Temperature 97.9 F 99.4 F Pulse Rate 74 88 83 Respiratory Rate 14 14 20 Blood Pressure 137/58 L 142/58 H 134/57 L Pulse Oximetry 94 92 91 12/22/24 00:00 12/22/24 04:00 12/22/24 08:00 Temperature 97.6 F 98.0 F 98.3 F Pulse Rate 81 84 62 Respiratory Rate 20 20 16 Blood Pressure 146/61 H 151/59 H 152/61 H Pulse Oximetry 91 92 100 Intake/Output Intake/Output: Intake & Output 12/19/24 12/20/24 12/21/24 12/22/24 23:59 23:59 23:59 23:59 Intake Total 50 2180 1100 Balance 50 2180 1100 Meds/Results Medications: Active Medications Generic Name Dose Route Start Last Admin Trade Name Freq PRN Reason Stop Dose Admin Acetaminophen 650 mg 12/22/24 09:39 12/22/24 10:04 Acetaminophen 325 Mg Tablet PO 650 mg Q6H PRN Administration Mild Pain (1-3) or Fever Ascorbic Acid 500 mg 12/21/24 09:00 12/22/24 09:24 Ascorbic Acid 500 Mg Tablet PO 500 mg DAILY YOJANA Administration Famotidine 20 mg 12/21/24 09:00 12/22/24 09:24 Famotidine 20 Mg Tablet PO 20 mg DAILY YOJANA Administration Fluticasone Propionate 2 spray 12/20/24 22:28 Fluticasone Propionate 0.05% Na Spr 16 Gm Btl (*Bkc) NASAL DAILY PRN Nasal Congestion Piperacillin Sod/Tazobactam 50 mls @ 100 mls/hr 12/21/24 07:35 12/22/24 05:36 Sod 3.375 gm/ Sodium Chloride IVPB Infused Q6HR YOJANA Infusion Lactated Ringer's 1,000 mls @ 75 mls/hr 12/21/24 07:40 12/22/24 05:06 Lr - Lactated Ringers Iv IV CONT 125 mls/hr .[id number] YOJANA Administration Ketorolac Tromethamine 15 mg 12/20/24 22:28 12/21/24 20:56 Ketorolac 15 Mg/Ml Vial (*Bkc) IV PUSH 15 mg Q6H PRN Administration Pain Rated 4-6 Losartan Potassium 50 mg 12/21/24 09:00 12/22/24 09:24 Losartan Potassium 50 Mg Tablet PO 50 mg DAILY YOJANA Administration Morphine Sulfate 4 mg 12/20/24 22:28 Morphine Sulfate (*Crx) 4 Mg/Ml Inj IV PUSH Q4H PRN Pain Rated 7-10 Ondansetron HCl 4 mg 12/20/24 22:31 Ondansetron Inj 4 Mg/2 Ml Vial IV PUSH Q4H PRN Nausea And Vomiting Pantoprazole Sodium 40 mg 12/21/24 21:00 12/21/24 20:56 Pantoprazole 40 Mg Tablet PO 40 mg HS YOJANA Administration Pravastatin Sodium 20 mg 12/21/24 09:00 12/21/24 08:07 Pravastatin Sodium 20 Mg Tablet PO 20 mg On Hold: 12/21/24 16:13 DAILY YOJANA Administration Vitamin D 25 mcg 12/21/24 09:00 12/22/24 09:24 Cholecalciferol (Vitamin D3) 25 Mcg (1,000 Units) Tablet PO 25 mcg DAILY YOJANA Administration Radiology Results: ITS Impressions Abdomen/Pelvis CT 12/20/24 20:06 IMPRESSION: 1. Acute interstitial pancreatitis. 2. 1.4 cm indeterminate left adrenal nodule which in the absence of known malignancy most likely represents an adenoma. Consider 12 month follow-up pre and postcontrast CT or MRI. Abdomen Ultrasound 12/21/24 11:18 Impression: 1. Limited study. Sludge within the gallbladder. No evidence of acute cholecysti tis. 2. Mild hepatic steatosis versus hepatocellular disease. Labs Labs: Laboratory Results - last 24 hr 08/27/25 05:00 WBC 11.7 H RBC 3.49 L Hgb 10.5 L Hct 32.5 L MCV 93.1 MCH 30.1 MCHC 32.3 RDW 13.6 Plt Count 226 MPV 10.1 Immature Gran % (Auto) 0.4 Neut % (Auto) 81.3 H Lymph % (Auto) 8.6 L [place] % (Auto) 6.9 Eos % (Auto) 2.5 Baso % (Auto) 0.3 Lymph # (Auto) 1.00 [place] # (Auto) 0.8 H Eos # (Auto) 0.3 Baso # (Auto) 0.0 Abs Immat Gran (auto) 0.05 H Absolute Neuts (auto) 9.5 H Absolute Nucleated RBC 0.000 Nucleated RBC % 0.0 PT 16.9 H INR 1.4 APTT 40.3 H Sodium 136 L Potassium 3.7 Chloride 105 Carbon Dioxide 24 Anion Gap 7 BUN 11 Creatinine 0.67 L Estim Creat Clear Calc 63 Estimated GFR > 60 Glucose 94 Calcium 8.5 Magnesium 2.0 Total Bilirubin 1.3 AST 131 H ALT 204 H Alkaline Phosphatase 208 H Total Protein 6.1 L Albumin 3.3 L Lipase 1460 H
[2024-12-22 12:00] VITALS: BP 154/60; PULSE 82; RESP 14; TEMP 37.3; O2SAT 91
[2024-12-22 16:00] VITALS: BP 147/63; PULSE 75; RESP 14; O2SAT 93
[2024-12-22 20:00] VITALS: BP 165/60; PULSE 83; RESP 20; TEMP 37.4; O2SAT 91
[2024-12-22] MEDS: PANTOPRAZOLE 40 MG TABLET PO (20:09)
[2024-12-22] MEDS: KETOROLAC 15 MG/ML VIAL (*BKC) IV PUSH (21:30)
[2024-12-22] MEDS: LACTATED RINGERS 1,000 ML 75 ML IV CONT (23:23)
[2024-12-23] VITALS (12 sets, daily range): BP systolic 156–188; BP diastolic 62–76; PULSE 72–92; RESP 14–18; TEMP 36.2–37.6; O2SAT 90–99
[2024-12-23 05:28] LABS: Hematocrit 31.4 % (37.0-47.0); Hemoglobin 10.2 g/dL (12.0-15.0); Immature Granulocyte Percent A 0.5 % (0-0.5); Lymphocytes Absolute Auto 1.09 K/mm3 (0.9-3.2); Mean Corpuscular HGB Conc 32.5 g/dl (32-36); Mean Corpuscular Hemoglobin 30.3 pg (26-34); Mean Corpuscular Volume 93.2 fl (80-100); Nucleated Red Blood Cells Absolute Auto 0.000 K/mm3 (0.0-0.012); Nucleated Red Blood Cells Perc 0.0 % (0.0-0.2); Platelet Count Result 235 k/mm3 (150-375); Red Blood Count 3.37 M/mm3 (4.2-5.4); White Blood Count 11.6 K/mm3 (4.5-10.0)
[2024-12-23 05:39] LABS: Alanine Aminotransferase 127 U/L (6-35); Albumin Level 3.2 g/dL (3.5-5.1); Alkaline Phosphatase 171 U/L (38-126); Anion Gap 4 mmol/L (4-12); Aspartate Amino Transferase 59 U/L (14-36); Bilirubin,Total 0.9 mg/dL (0.2-1.3); Blood Urea Nitrogen 11 mg/dL (7-17); Calcium 8.5 mg/dL (8.4-10.2); Carbon Dioxide 28 mmol/L (22-30); Chloride 105 mmol/L (98-107); Estimated CRCL calculation 63 ml/min; Estimated Glomerular Filt Rate > 60; Glucose 103 mg/dL (65-110); Magnesium 2.1 mg/dL (1.6-2.3); Potassium 4.0 mmol/L (3.4-5.0); Sodium 137 mmol/L (137-145); Total Protein 6.1 g/dL (6.3-8.2)
[2024-12-23] MEDS: PIPERACILLIN/TAZOBACTAM SOD 3.375 GM in SODIUM CHLORIDE 0.9% IV 50 ML 100 ML IVPB ×4 (06:07→23:54)
--- NOTE | 2024-12-23 07:22 | P.PNIM_ITS ---
Progress Note: A&P Assessment and Plan (1) Acute pancreatitis: Code(s): K85.90 - Acute pancreatitis without necrosis or infection, unspecified Status: Acute Assessment and Plan: * US 12/15 showed diffuse hepatic steatosis, mildly dilated gallbladder * admit CT A/P with acute interstitial pancreatitis * suspect biliary in origin given RUQ abdominal pain and elevated LFTs * trend CMP * IV fluids, analgesics and antiemetics * NPO, advance diet per GI recs * GI consulted - planning to treat pancreatitis, repeat RUQ US * General Surgery consult * MRCP on 12/22: Acute interstitial pancreatitis. Gallbladder sludge. Normal MRCP with no cholelithiasis/choledocholithiasis. 1.4 cm left adrenal adenoma. * Lap Susi scheduled today @ 1430 (2) Transaminitis: Code(s): R74.01 - Elevation of levels of liver transaminase levels Status: Acute Assessment and Plan: * T bili 1.7, AST 261, ALT 253, alk-phos 290 * given leukocytosis, low grade fever - stop IV Rocephin, start IV Zosyn for possible cholangitis * obtain blood cultures * follow-up imaging as recommended by GI * 12/23 - AST/ALT continues to down trend -> 59/127, alk phos 171 (3) Abnormal urinalysis: Code(s): R82.90 - Unspecified abnormal findings in urine Status: Acute Assessment and Plan: * UA with SG >1.045, positive nitrates, 2+ LE, 21-50 WBC, 4+ bacteria. * WBC 14, T max 100.2 * Urine culture 12/15/24 with E coli and GBS. Continue IV Rocephin * denies specific urinary symptoms. Currently on Zosyn. * repeat urine culture pending (4) Obesity, Class I, BMI 30-34.9: Code(s): E66.9 - Obesity, unspecified Status: Acute Assessment and Plan: * BMI 32.4 kg/m2 * lifestyle modifications as able (5) Hyperlipidemia: Code(s): E78.5 - Hyperlipidemia, unspecified Status: Acute Assessment and Plan: * hold statin due to elevated LFTs (6) Essential (primary) hypertension: Code(s): I10 - Essential (primary) hypertension Status: Acute Assessment and Plan: * continue home losartan (7) Lesion of adrenal gland: Code(s): E27.9 - Disorder of adrenal gland, unspecified Status: Acute Assessment and Plan: * CT showed left adrenal nodule, likely adenoma. Consider 12-month follow-up MRI Plan - Code status: full code, confirmed on admission - DVT prophylaxis: SCDs Subjective Date/time seen: 12/23/24 07:22 Interval history: 79 yo female with past medical history of hypertension, hyperlipidemia, GERD who presents with epigastric abdominal pain. Patient was initially seen in the ED 11/26 with epigastric pain after eating fried fish. [facility] and ct[facility]ed with instructions to f/u with GI. She followed with her PCP and was prescribed famotidine and pantoprazole. She re-presented to the ED 12/15 with similar symptoms after eating pizza. 12/23/2024 Patient sitting comfortably in bed at time of exam. Denies any chest pain, shortness a breath, nausea/vomiting at this time. Still endorses some RUQ tenderness but overall feels better today. MRCP yesterday showed acute interstitial pancreatitis, gallbladder sludge with no cholelithiasis/choledocholithiasis. General surgery planning for laparoscopic cholecystectomy today at 2:30 p.m.. Patient otherwise feels okay and has no complaints or concerns at this time. Review of Systems Review of Systems: All systems reviewed & are unremarkable except as noted in HPI and below Exam Narrative: General: NAD Eyes: EOMI ENT: neck supple Cardiovascular: Regular rate and rhythm Respiratory: Clear to auscultation, respirations even and unlabored on RA Gastrointestinal: Soft, mild RUQ tenderness with palpation, negative Rice's sign Genitourinary: no suprapubic tenderness Musculoskeletal: No edema Skin: warm, dry Neuro: Alert. Psych: Mood appropriate Objective Data Vital Signs Vital Signs: Vital Signs - 24 hr 12/22/24 08:00 12/22/24 08:00 12/22/24 12:00 Temperature 98.3 F 99.2 F Pulse Rate 62 82 Respiratory Rate 16 14 Blood Pressure 152/61 H 154/60 H Pulse Oximetry 100 91 Oxygen Delivery Room Air 12/22/24 16:00 12/22/24 20:00 12/23/24 00:00 Temperature 99.4 F 98.5 F Pulse Rate 75 83 85 Respiratory Rate 14 20 18 Blood Pressure 147/63 H 165/60 H 165/63 H Pulse Oximetry 93 91 93 Oxygen Delivery 12/23/24 04:00 Temperature 99.6 F Pulse Rate 81 Respiratory Rate 16 Blood Pressure 159/64 H Pulse Oximetry 90 Oxygen Delivery Intake/Output Intake/Output: Intake & Output 12/20/24 12/21/24 12/22/24 12/23/24 23:59 23:59 23:59 23:59 Intake Total 50 2180 2490 300 Balance 50 2180 2490 300 Meds/Results Medications: Active Medications Generic Name Dose Route Start Last Admin Trade Name Freq PRN Reason Stop Dose Admin Acetaminophen 650 mg 12/22/24 09:39 12/22/24 10:04 Acetaminophen 325 Mg Tablet PO 650 mg Q6H PRN Administration Mild Pain (1-3) or Fever Ascorbic Acid 500 mg 12/21/24 09:00 12/22/24 09:24 Ascorbic Acid 500 Mg Tablet PO 500 mg DAILY YOJANA Administration Famotidine 20 mg 12/21/24 09:00 12/22/24 09:24 Famotidine 20 Mg Tablet PO 20 mg DAILY YOJANA Administration Fluticasone Propionate 2 spray 12/20/24 22:28 Fluticasone Propionate 0.05% Na Spr 16 Gm Btl (*Bkc) NASAL DAILY PRN Nasal Congestion Piperacillin Sod/Tazobactam 50 mls @ 100 mls/hr 12/21/24 07:35 12/23/24 06:35 Sod 3.375 gm/ Sodium Chloride IVPB Infused Q6HR YOJANA Infusion Lactated Ringer's 1,000 mls @ 75 mls/hr 12/21/24 07:40 12/22/24 23:23 Lr - Lactated Ringers Iv IV CONT 75 mls/hr .[id number] YOJANA Administration Ketorolac Tromethamine 15 mg 12/20/24 22:28 12/22/24 21:30 Ketorolac 15 Mg/Ml Vial (*Bkc) IV PUSH 15 mg Q6H PRN Administration Pain Rated 4-6 Losartan Potassium 50 mg 12/21/24 09:00 12/22/24 09:24 Losartan Potassium 50 Mg Tablet PO 50 mg DAILY YOJANA Administration Morphine Sulfate 4 mg 12/20/24 22:28 Morphine Sulfate (*Crx) 4 Mg/Ml Inj IV PUSH Q4H PRN Pain Rated 7-10 Ondansetron HCl 4 mg 12/20/24 22:31 Ondansetron Inj 4 Mg/2 Ml Vial IV PUSH Q4H PRN Nausea And Vomiting Pantoprazole Sodium 40 mg 12/21/24 21:00 12/22/24 20:09 Pantoprazole 40 Mg Tablet PO 40 mg HS YOJANA Administration Pravastatin Sodium 20 mg 12/21/24 09:00 12/21/24 08:07 Pravastatin Sodium 20 Mg Tablet PO 20 mg On Hold: 12/21/24 16:13 DAILY YOJANA Administration Vitamin D 25 mcg 12/21/24 09:00 12/22/24 09:24 Cholecalciferol (Vitamin D3) 25 Mcg (1,000 Units) Tablet PO 25 mcg DAILY YOJANA Administration Radiology Results: ITS Impressions Abdomen/Pelvis CT 12/20/24 20:06 IMPRESSION: 1. Acute interstitial pancreatitis. 2. 1.4 cm indeterminate left adrenal nodule which in the absence of known malignancy most likely represents an adenoma. Consider 12 month follow-up pre and postcontrast CT or MRI. Abdomen Ultrasound 12/21/24 11:18 Impression: 1. Limited study. Sludge within the gallbladder. No evidence of acute cholecystitis. 2. Mild hepatic steatosis versus hepatocellular disease. MRCP 12/22/24 12:52 IMPRESSION: 1. Acute interstitial pancreatitis. 2. Gallbladder sludge. Normal MRCP with no cholelithiasis/choledocholithiasis. 3. 1.4 cm left adrenal adenoma. Labs Labs: Laboratory Results - last 24 hr 12/23/24 05:12 WBC 11.6 H RBC 3.37 L Hgb 10.2 L Hct 31.4 L MCV 93.2 MCH 30.3 MCHC 32.5 RDW 13.3 Plt Count 235 MPV 9.9 Immature Gran % (Auto) 0.5 Neut % (Auto) 79.7 H Lymph % (Auto) 9.4 L [place] % (Auto) 7.2 Eos % (Auto) 2.9 Baso % (Auto) 0.3 Lymph # (Auto) 1.09 [place] # (Auto) 0.8 H Eos # (Auto) 0.3 Baso # (Auto) 0.0 Abs Immat Gran (auto) 0.06 H Absolute Neuts (auto) 9.2 H Absolute Nucleated RBC 0.000 Nucleated RBC % 0.0 Sodium 137 Potassium 4.0 Chloride 105 Carbon Dioxide 28 Anion Gap 4 BUN 11 Creatinine 0.67 L Estim Creat Clear Calc 63 Estimated GFR > 60 Glucose 103 Calcium 8.5 Magnesium 2.1 Total Bilirubin 0.9 AST 59 H ALT 127 H Alkaline Phosphatase 171 H Total Protein 6.1 L Albumin 3.2 L Quality VTE Prophylaxis VTE prophylaxis: mechanical ordered
[2024-12-23 09:03] LABS: Lipase 583 U/L (23-300)
--- NOTE | 2024-12-23 14:01 | P.PNAN_ITS ---
Anes - Initial Pre Proc Eval Procedure: Operation Date: 12/23/24 14:30 Proposed Procedures p Laparoscopic Cholecystectomy with Intra Operative Cholangiograms - Lloyd Aguilar DO Date/Time: 12/23/24 14:01 Surgeon: Ernesto Josue MD Pre Op Diagnosis: acute pancreatitis Patient Data Age: 79 Gender: F Height: 1.63 m Weight: 85.6 kg Last Vital Signs Temp 37.6 C 12/23/24 04:00 Pulse 81 12/23/24 04:00 Resp 16 12/23/24 04:00 BP 159/64 H 12/23/24 04:00 Pulse Ox 90 12/23/24 04:00 O2 Del Method Room Air 12/23/24 09:16 O2 Flow Rate 2 12/20/24 22:04 Allergies Allergy/AdvReac Type Severity Reaction Status Date / Time No Known Allergies Allergy Verified 12/23/24 14:04 Home Medications ?Medication ?Instructions ?Recorded ?Confirmed ?Type ascorbic acid (vitamin C) 500 mg 500 mg PO DAILY 03/3012/20/24 History capsule cholecalciferol (vitamin D3) 25 1,000 unit PO DAILY 12/20/24 History mcg (1,000 unit) capsule pravastatin 20 mg tablet 20 mg PO DAILY 03/30/1911/27 History losartan 50 mg tablet 50 mg PO DAILY #90 tabs 05/3012/20/24 Rx fluticasone propionate 50 2 spray intranasal DAILY PRN nasal 04/29/23 12/20/24 Rx mcg/actuation nasal congestion #15.8 mL spray,suspension famotidine 20 mg tablet 20 mg PO DAILY #30 tabs 0805/2212/20/24 Rx pantoprazole 40 mg tablet,delayed 40 mg PO HS 4 weeks #28 tabs 11/26/24 12/20/24 Rx release (Protonix) Laboratory Tests 12/23/24 05:12 WBC 11.6 H K/mm3 (4.5-10.0) RBC 3.37 L M/mm3 (4.2-5.4) Hgb 10.2 L g/dL (12.0-15.0) Hct 31.4 L % (37.0-47.0) MCV 93.2 fl (80-100) MCH 30.3 pg (26-34) MCHC 32.5 g/dl (32-36) RDW 13.3 % (11.5-14.5) Plt Count 235 k/mm3 (150-375) MPV 9.9 fl (7.4-10.4) Immature Gran % (Auto) 0.5 % (0-0.5) Neut % (Auto) 79.7 H % (45.5-73.1) Lymph % (Auto) 9.4 L % (18.3-44.2) [place] % (Auto) 7.2 % (2.6-8.5) Eos % (Auto) 2.9 % (0-4.4) Baso % (Auto) 0.3 % (0.2-1.2) Lymph # (Auto) 1.09 K/mm3 (0.9-3.2) [place] # (Auto) 0.8 H K/mm3 (0.1-0.6) Eos # (Auto) 0.3 K/mm3 (0-0.3) Baso # (Auto) 0.0 K/mm3 (0.0-0.1) Abs Immat Gran (auto) 0.06 H K/mm3 (0.00-0.031) Absolute Neuts (auto) 9.2 H K/mm3 (1.3-6.7) Absolute Nucleated RBC 0.000 K/mm3 (0.0-0.012) Nucleated RBC % 0.0 % (0.0-0.2) Sodium 137 mmol/L (137-145) Potassium 4.0 mmol/L (3.4-5.0) Chloride 105 mmol/L (98-107) Carbon Dioxide 28 mmol/L (22-30) Anion Gap 4 mmol/L (4-12) BUN 11 mg/dL (7-17) Creatinine 0.67 L mg/dL (0.7-1.0) Estim Creat Clear Calc 63 ml/min Estimated GFR > 60 (59 - ) Glucose 103 mg/dL (65-110) Calcium 8.5 mg/dL (8.4-10.2) Magnesium 2.1 mg/dL (1.6-2.3) Total Bilirubin 0.9 mg/dL (0.2-1.3) AST 59 H U/L (14-36) ALT 127 H U/L (6-35) Alkaline Phosphatase 171 H U/L (38-126) Total Protein 6.1 L g/dL (6.3-8.2) Albumin 3.2 L g/dL (3.5-5.1) Lipase 583 H U/L (23-300) Patient hx anesthesia problems: none Family hx anesthesia problems: none Results Review: All pre-operative results and documents have been reviewed as part of the pre- operative evaluation. [facility] Past Medical History Medical History (Updated 12/22/24 @ 10:17 by ALEXUS Alston) Pulmonary nodule Lesion of adrenal gland Acute pancreatitis Obesity, Class I, BMI 30-34.9 Essential (primary) hypertension Hyperlipidemia Mammogram abnormal Surgical History Surgical History History of hysterectomy Family History Family History Mother Hypertension, Onset Age: 92 Social History Social History Smoking status: Never smoker Second hand tobacco smoke exposure: No Alcohol intake: never Substance use: never Substance use type: does not use Do You Feel Safe in your Home?: Yes Lack of Transportation: No Lack of Food: Never True Current Housing: I Have Housing Concerned About Future Housing: No Difficulty Paying Gas/Electric Bills: No Difficulty Paying for Meds: No Currently Unemployed: No Education: Associate Degree Difficulty w/ Childcare or Family Care: No Living arrangements: with family Occupation/Education: retired Gender identity (if verbalized by the patient): Female Spiritual care concerns: No Anes - Eval Final PreProcedure Day of Procedure 12/23/24 14:01 Patient weight: obese Heart: regular rate and rhythm Lungs: clear to auscultation Airway: Mallampati scale class III Neurological: alert and oriented Last oral intake: >/= 8 hours ASA classification: III Emergent: no Anesthetic plan: proceed Anesthesia type and monitoring: general ETT and standard monitoring Results Review: All pre-operative results and documents have been reviewed as part of the pre- operative evaluation. Informed Consent: The patient's anesthetic plan and its attendant risks and benefits were discussed with the patient/family/POA. Questions were solicited and answers provided to the satisfaction of the patient/family/POA.
--- NOTE | 2024-12-23 14:51 | WPDHPUPDATE1 ---
History and Physical Update Update Date/Time: 12/23/24 14:51 History and Physical has been reviewed, including an updated exam of the patient. There are NO changes in the patient's condition. Risks, benefits, and alternatives have been discussed and questions answered. Patient agrees to proceed with procedure.
[2024-12-23] MEDS: BUPIVACAINE/EPINEPHRINE 0.5% 50 ML VIAL 30 ML INFILTRATE (15:32)
--- NOTE | 2024-12-23 15:56 | S_PTH ---
PATIENT: Milla Balderas LOC: [id number] U#:[id number] AGE/SX: 79/F ROOM: 256 RE12/20/[address]: Rahul Mcgrath PA-C : 1945 BED: 01 DIS: 12/24/2024 SPEC #: [id number] RECD: 12/24/24 10:31 STATUS: JUAN RAMON RESergio #: [id number] MIREYA: 12/23/24 15:[address]: Lloyd Aguilar DEPT: [facility] Surgical RECD BY: Yesenia Billy ENTERED: 12/24/24 10:31 SP TYPE: Surgical OTHR DR: ALIREZA Méndez DO Natalie J. Ross, PA Amardeep Shrestha, MD Tissues: A - Gallbladder Procedures: Hematoxylin and Eosin Stain Gross and Microscopic Level 3
--- NOTE | 2024-12-23 16:17 | P.OP_ITS ---
Procedure Note - Detailed Date of Procedure 12/23/24 Pre-op Diagnosis acute pancreatitis, gallbladder sludge Post-op Diagnosis Same Procedure Performed Laparoscopic cholecystectomy with intraoperative cholangiogram Surgeon Lloyd Aguilar, DO Anesthesia General and Local (0.5% bupivacaine) Indications This is a 79-year-old woman who presented to the emergency department with epigastric abdominal pain and was found to have evidence of acute pancreatitis. She was admitted for further treatment. Ultrasound had shown evidence of a distended gallbladder and gallbladder sludge. She also underwent MRCP which showed no filling defects within the common bile duct. Her pancreatitis was resolving and her symptoms were improving. Discussions were made with the patient about treatment options and decision was made to proceed with laparoscopic cholecystectomy with intraoperative cholangiogram. Findings Laparoscopic cholecystectomy with intraoperative cholangiogram was performed. The gallbladder was slightly distended and filled with bile. A laparoscopic aspirating needle was used to aspirate the bile to decompress the gallbladder. The neck of the gallbladder appeared to have some thicker material within it but no clear evidence of gallstones. The cystic duct appeared to taper down to normal size. Intraoperative cholangiogram was obtained and there were no signs of filling defects within biliary tree. The gallbladder was removed and sent to the lab for pathology. Description of Procedure Procedure as well as risks, benefits, and alternatives were discussed with patient. Written consent was obtained and placed in chart prior to procedure. The patient was brought back to surgical suite. Patient was placed in supine position on operating table. Time-out was done to confirm patient and procedure. Patient was then intubated by the anesthesia department. Abdomen was prepped and draped in sterile fashion using chlorhexidine prep. 0.5% bupivacaine with epinephrine was infiltrated at each site of incision. A 5 millimeter incision was made near the umbilicus, and a 5 millimeter Optiview trocar was advanced through the abdominal layers under direct visualization. Once inside the abdominal cavity, carbon dioxide was insufflated to create a pneumoperitoneum. The camera was inserted and the abdomen was inspected. No immediate abnormalities were identified. The patient was placed in reverse Trendelenburg position and rotated slightly to the left. An 11 millimeter incision was made in the subxiphoid region, and an 11 millimeter trocar was inserted under direct visualization. Two 5 millimeter incisions were made in the right upper quadrant, and two 5 millimeter trocars were inserted under direct visualization. The gallbladder was identified and grasped at the fundus and retracted superiorly. It was then grasped at the infundibulum retracted laterally. Careful dissection around the neck of the gallbladder was performed using blunt dissection with a [place] grasper and hook electrocautery. The cystic duct was identified, and a window was created behind it. The cystic artery was also identified and a window was created behind it. The critical view of safety was identified, visualizing the cystic duct running directly into the neck of the gallbladder, and the cystic artery running directly into the wall of the gallbladder. A 5 millimeter clip flatbed company driver was then used to place 2 clips proximally and 1 clip distally on the cystic artery. It was then transected using endoscopic scissors. The Calix clamp was then placed across the neck of the gallbladder and the Calix cholangiocatheter was inserted into the distal neck of the gallbladder. The catheter flushed with saline with ease. The patient was then flattened out in bed and fluoroscopy was used to obtain an intraoperative cholangiogram with Omnipaque contrast. The images were sent to Radiology for interpretation. The patient was then placed back in reverse Trendelenburg position. A 5 mm clip flatbed company driver was used to place 2 clips proximally 1 clip distally on the cystic duct. It was then transected using endoscopic scissors. Once safely away from the matthew hepatitis, the gallbladder was dissected free from the liver bed using hook electrocautery. Hemostasis was achieved along the way. The gallbladder was removed completely and then removed through the subxiphoid port. The liver bed was then inspected. Hemostasis appeared adequate, and our clips appeared secure. The area was gently irrigated with sterile saline. No other abnormalities were seen. The patient was flattened out in bed, and 1 final inspection was made around the abdominal cavity. The subxiphoid port was removed, and a Ze Raiza cone was used to approximate the fascia with an 0-Vicryl simple interrupted suture. The remaining ports were then removed under direct visualization, the camera was removed, and the pneumoperitoneum was released. The skin of the incisions was approximated using 4-0 Monocryl subcuticular sutures. Exofin glue was applied on top. The patient was then awakened from anesthesia, extubated, and transferred to recovery. Estimated Blood Loss 20 Pathology Yes (Gallbladder) Complications No immediate complications Condition Stable Disposition Floor [facility] [place] Billing Surgery - Charge Forward: Surgery Billing
--- NOTE | 2024-12-23 16:41 | SUR.PHASEI ---
1640 - denies presence of pain. vital signs stable. 4 abd sites with surgical glue to them.
--- NOTE | 2024-12-23 16:56 | SUR.PHASEI ---
1655 - iv fluids left to count at pt time of leaving PACU 500ml.
--- NOTE | 2024-12-23 17:11 | PC.NURSE ---
Returned from OR at 1700.
[2024-12-23] MEDS: ONDANSETRON INJ 4 MG/2 ML VIAL IV PUSH (17:38)
[2024-12-23] MEDS: HYDROcodone/acetaminophen (*CRX) 7.5-325 MG TABLET 1 TAB PO ×2 (17:38→23:55)
[2024-12-23] MEDS: LACTATED RINGERS 1,000 ML 100 ML IV CONT (17:38)
[2024-12-23] MEDS: LOSARTAN POTASSIUM 50 MG TABLET PO (17:44)
[2024-12-23] MEDS: PANTOPRAZOLE 40 MG TABLET PO (20:26)
[2024-12-24 03:41] VITALS: BP 150/56; PULSE 79; RESP 18; TEMP 36.2; O2SAT 92
[2024-12-24 04:55] LABS: Hematocrit 31.6 % (37.0-47.0); Hemoglobin 10.1 g/dL (12.0-15.0); Immature Granulocyte Percent A 0.6 % (0-0.5); Lymphocytes Absolute Auto 0.79 K/mm3 (0.9-3.2); Mean Corpuscular HGB Conc 32.0 g/dl (32-36); Mean Corpuscular Hemoglobin 30.3 pg (26-34); Mean Corpuscular Volume 94.9 fl (80-100); Nucleated Red Blood Cells Absolute Auto 0.000 K/mm3 (0.0-0.012); Nucleated Red Blood Cells Perc 0.0 % (0.0-0.2); Platelet Count Result 253 k/mm3 (150-375); Red Blood Count 3.33 M/mm3 (4.2-5.4); White Blood Count 12.5 K/mm3 (4.5-10.0)
[2024-12-24 05:18] LABS: Alanine Aminotransferase 113 U/L (6-35); Albumin Level 3.3 g/dL (3.5-5.1); Alkaline Phosphatase 155 U/L (38-126); Anion Gap 6 mmol/L (4-12); Aspartate Amino Transferase 86 U/L (14-36); Bilirubin,Total 0.8 mg/dL (0.2-1.3); Blood Urea Nitrogen 9 mg/dL (7-17); Calcium 8.5 mg/dL (8.4-10.2); Carbon Dioxide 27 mmol/L (22-30); Chloride 103 mmol/L (98-107); Estimated CRCL calculation 65 ml/min; Estimated Glomerular Filt Rate > 60; Glucose 126 mg/dL (65-110); Magnesium 2.0 mg/dL (1.6-2.3); Potassium 4.7 mmol/L (3.4-5.0); Sodium 136 mmol/L (137-145); Total Protein 6.3 g/dL (6.3-8.2)
[2024-12-24] MEDS: PIPERACILLIN/TAZOBACTAM SOD 3.375 GM in SODIUM CHLORIDE 0.9% IV 50 ML 100 ML IVPB (05:45)
[2024-12-24] MEDS: HYDROcodone/acetaminophen (*CRX) 7.5-325 MG TABLET 1 TAB PO (06:46)
--- NOTE | 2024-12-24 08:30 | PM.PNGS ---
Progress Note: A&P Assessment and Plan (1) Gallbladder sludge: Code(s): K82.8 - Other specified diseases of gallbladder Status: Acute Assessment and Plan: POD1 s/p lap colton. Patient tolerated the surgery without any complications and she is feeling well this morning. Minimal pain. Tolerating diet without nausea or vomiting. Ambulating without assistance. Voiding without difficulty. Small BM this morning. Surgically stable for discharge with outpatient follow up in 2 weeks. (2) Acute pancreatitis: Code(s): K85.90 - Acute pancreatitis without necrosis or infection, unspecified Status: Acute Assessment and Plan: Pancreatitis improving. POD1 s/p lap colton. Patient notes minimal abdominal tenderness. (3) Transaminitis: Code(s): R74.01 - Elevation of levels of liver transaminase levels Status: Acute Assessment and Plan: LFTs elevated, but stable s/p lap colton. Total bilirubin 0.8. Plan Discussed patient's case and plan of care with Dr. Bello. Subjective Subjective Date/Time Seen: 12/24/24 08:30 Post Op day: 1 Patient reports: no new complaints, feels better, bowel movement and afebrile Interval history: Patient is doing very well this morning. She states that pain is significantly decreased. She only notes some mild incisional pain. Tolerating diet without nausea or vomiting. Ambulating without assistance. Voiding appropriately. Endorses small bowel movement this morning. WBC slightly increased to 12.5, but likely postop reaction. Exam Const: General: comfortable and no acute distress Eyes: General: appearance normal, both eyes and all related structures Neck: Neck: supple Resp: Effort & Inspection: normal respiratory effort Cardio: Rate: regular rate GI: Inspection: non-distended GI Palp: Yes Soft to palpation, No Tenderness to palpation present (GI) and No Guarding due to palpation present (GI) Other: Incisions clean and dry with glue intact. No surrounding redness or edema. No signs of infection, skin necrosis, or wound dehiscence. Objective Data Vital Signs Vital Signs: Vital Signs - 24 hr 12/23/24 09:16 12/23/24 14:05 12/23/24 16:25 Temperature 99.5 F Pulse Rate 82 72 Respiratory Rate 16 18 Blood Pressure 176/66 H 184/70 H Pulse Oximetry 93 99 Oxygen Delivery Room Air Room Air Simple Face Mask Oxygen Flow Rate 5 12/23/24 16:36 12/23/24 16:52 12/23/24 17:15 Temperature 98.2 F Pulse Rate 73 77 76 Respiratory Rate 18 14 15 Blood Pressure 188/72 H 165/75 H 179/76 H Pulse Oximetry 99 96 96 Oxygen Delivery Simple Face Mask Nasal Cannula Oxygen Flow Rate 5 2 12/23/24 17:30 12/23/24 18:00 12/23/24 19:00 Temperature 98.2 F 98.2 F 98.2 F Pulse Rate 79 76 79 Respiratory Rate 15 15 16 Blood Pressure 178/75 H 176/75 H 172/67 H Pulse Oximetry 97 97 96 Oxygen Delivery Oxygen Flow Rate 12/23/24 20:00 12/23/24 23:46 12/24/24 03:41 Temperature 97.2 F L 97.4 F L 97.2 F L Pulse Rate 81 92 79 Respiratory Rate 16 16 18 Blood Pressure 156/62 H 158/74 H 150/56 H Pulse Oximetry 92 94 92 Oxygen Delivery Oxygen Flow Rate Intake/Output Intake/Output: Intake & Output 12/21/24 12/22/24 12/23/24 12/24/24 23:59 23:59 23:59 23:59 Intake Total 2180 2490 550 1450 Balance 2180 2490 550 1450 Meds/Results Medications: Active Medications Generic Name Dose Route Start Last Admin Trade Name Freq PRN Reason Stop Dose Admin Acetaminophen 650 mg 12/22/24 09:39 12/22/24 10:04 Acetaminophen 325 Mg Tablet PO 650 mg Q6H PRN Administration Mild Pain (1-3) or Fever Hydrocodone Bitart/Acetaminophen 1 tab 12/23/24 17:24 Hydrocodone/Acetaminophen (*Crx) 5-325 Mg Tablet PO Q4H PRN Pain Rated 4-6 Hydrocodone Bitart/Acetaminophen 1 tab 12/23/24 17:24 12/24/24 06:46 Hydrocodone/Acetaminophen (*Crx) 7.5-325 Mg Tablet PO 1 tab Q4H PRN Administration Pain Rated 7-10 Ascorbic Acid 500 mg 12/21/24 09:00 12/23/24 12:59 Ascorbic Acid 500 Mg Tablet PO Not Given DAILY [facility] Famotidine 20 mg 12/21/24 09:00 12/23/24 12:59 Famotidine 20 Mg Tablet PO Not Given DAILY [facility] Fluticasone Propionate 2 spray 12/20/24 22:28 Fluticasone Propionate 0.05% Na Spr 16 Gm Btl (*Bkc) NASAL DAILY PRN Nasal Congestion Piperacillin Sod/Tazobactam 50 mls @ 100 mls/hr 12/21/24 07:35 12/24/24 06:15 Sod 3.375 gm/ Sodium Chloride IVPB Infused Q6HR YOJANA Infusion Losartan Potassium 50 mg 12/21/24 09:00 12/23/24 17:44 Losartan Potassium 50 Mg Tablet PO 50 mg DAILY YOJANA Administration Morphine Sulfate 2 mg 12/23/24 17:24 Morphine Sulfate (*Crx) 2 Mg/Ml Inj IV PUSH Q2H PRN Breakthrough Pain Rated 4-6 or NPO Morphine Sulfate 4 mg 12/23/24 17:24 Morphine Sulfate (*Crx) 4 Mg/Ml Inj IV PUSH Q2H PRN Breakthrough Pain Rated 7-10 or NPO Naloxone HCl 0.1 mg 12/23/24 17:24 Naloxone Hcl 0.4 Mg/Ml Vial IV PUSH Q2M PRN Opiate Reversal Ondansetron HCl 4 mg 12/20/24 22:31 12/23/24 17:38 Ondansetron Inj 4 Mg/2 Ml Vial IV PUSH 4 mg Q4H PRN Administration Nausea And Vomiting Pantoprazole Sodium 40 mg 12/21/24 21:00 12/23/24 20:26 Pantoprazole 40 Mg Tablet PO 40 mg HS YOJANA Administration Pravastatin Sodium 20 mg 12/21/24 09:00 12/21/24 08:07 Pravastatin Sodium 20 Mg Tablet PO 20 mg On Hold: 12/21/24 16:13 DAILY YOJANA Administration Vitamin D 25 mcg 12/21/24 09:00 12/23/24 12:59 Cholecalciferol (Vitamin D3) 25 Mcg (1,000 Units) Tablet PO Not Given DAILY [facility] Radiology Results: ITS Impressions Abdomen/Pelvis CT 12/20/24 20:06 IMPRESSION: 1. Acute interstitial pancreatitis. 2. 1.4 cm indeterminate left adrenal nodule which in the absence of known malignancy most likely represents an adenoma. Consider 12 month follow-up pre and postcontrast CT or MRI. Abdomen Ultrasound 12/21/24 11:18 Impression: 1. Limited study. Sludge within the gallbladder. No evidence of acute cholecystitis. 2. Mild hepatic steatosis versus hepatocellular disease. MRCP 12/22/24 12:52 IMPRESSION: 1. Acute interstitial pancreatitis. 2. Gallbladder sludge. Normal MRCP with no cholelithiasis/choledocholithiasis. 3. 1.4 cm left adrenal adenoma. Cholangiogram,Operative 12/23/24 16:26 IMPRESSION: 1. No filling defects or strictures within the common bile duct or contrast opacified central biliary tree. Labs Labs: Laboratory Results - last 24 hr 12/23/24 12/24/24 05:12 04:42 WBC 12.5 H RBC 3.33 L Hgb 10.1 L Hct 31.6 L MCV 94.9 MCH 30.3 MCHC 32.0 RDW 13.2 Plt Count 253 MPV 9.5 Immature Gran % (Auto) 0.6 H Neut % (Auto) 86.1 H Lymph % (Auto) 6.3 L [place] % (Auto) 6.7 Eos % (Auto) 0.1 Baso % (Auto) 0.2 Lymph # (Auto) 0.79 L [place] # (Auto) 0.8 H Eos # (Auto) 0.0 Baso # (Auto) 0.0 Abs Immat Gran (auto) 0.08 H Absolute Neuts (auto) 10.7 H Absolute Nucleated RBC 0.000 Nucleated RBC % 0.0 Sodium 136 L Potassium 4.7 Chloride 103 Carbon Dioxide 27 Anion Gap 6 BUN 9 Creatinine 0.65 L Estim Creat Clear Calc 65 Estimated GFR > 60 Glucose 126 H Calcium 8.5 Magnesium 2.0 Total Bilirubin 0.8 AST 86 H ALT 113 H Alkaline Phosphatase 155 H Total Protein 6.3 Albumin 3.3 L Lipase 583 H
[2024-12-24 08:58] VITALS: BP 134/52; PULSE 79; RESP 16; TEMP 36.4; O2SAT 91
[2024-12-24] MEDS: FAMOTIDINE 20 MG TABLET PO (08:58)
[2024-12-24] MEDS: ASCORBIC ACID 500 MG TABLET PO (08:58)
[2024-12-24] MEDS: CHOLECALCIFEROL (VITAMIN D3) 25 MCG (1,000 UNITS) TABLET PO (08:58)
[2024-12-24] MEDS: LOSARTAN POTASSIUM 50 MG TABLET PO (08:58)
[2024-12-24 09:01] VITALS: O2SAT 93
--- NOTE | 2024-12-24 09:03 | P.DS_ITS ---
DS: Admitting Diagnosis Discharge Date 12/24/2024 Admitting Diagnosis Pancreatitis, Gallbladder sludge DS: Discharge Diagnosis Discharge Diagnosis (1) Acute pancreatitis: Code(s): K85.90 - Acute pancreatitis without necrosis or infection, unspecified Status: Acute (2) Gallbladder sludge: Code(s): K82.8 - Other specified diseases of gallbladder Status: Acute (3) Transaminitis: Code(s): R74.01 - Elevation of levels of liver transaminase levels Status: Acute (4) Abnormal urinalysis: Code(s): R82.90 - Unspecified abnormal findings in urine Status: Acute (5) Obesity, Class I, BMI 30-34.9: Code(s): E66.9 - Obesity, unspecified Status: Acute Assessment and Plan: e (6) Hyperlipidemia: Code(s): E78.5 - Hyperlipidemia, unspecified Status: Acute (7) Essential (primary) hypertension: Code(s): I10 - Essential (primary) hypertension Status: Acute (8) Lesion of adrenal gland: Code(s): E27.9 - Disorder of adrenal gland, unspecified Status: Acute Plan - Code status: full code, confirmed on admission - DVT prophylaxis: SCDs DS: Summary Hospital Course Reason for hospitalization: epigastric pain Hospital Course: Per H&P: Patient is 79 yo female with past medical history of hypertension, hyperlipidemia, GERD who presented to the emergency department with epigastric abdominal pain. Patient was initially seen in the emergency department 11/26 with epigastric pain after eating fried fish. She was treated symptomatically and discharged with instructions to follow-up with GI. She followed up with her PCP who did not feel follow-up with GI was necessary at that time and was prescribed famotidine and pantoprazole. She re-presented to the ED 12/15 with similar symptoms after eating pizza. US of the gallbladder showed no acute process. She was again discharged and instructed to follow up with her primary care provider. In the outpatient setting, a HIDA scan was ordered however had not been obtained. Patient re-presented to the ED again with epigastric abdominal pain, but more severe in nature. She describes it as a sharp pain that radiates across her entire abdomen and her back. The pain is associated with nausea and vomiting. She denies prior history of gallbladder issues. Denies fever or chills at home. Denies chest pain, shortness a breath, urinary frequency or dysuria. Upon my evaluation, she has minimal pain, but did require administration of analgesics this morning. She currently denies nausea. Did note low-grade fever 102.2 the AM. In the ED, WBC 14, Hgb 11.9, glucose 126, t bili 1.7, AST 261, ALT 253, alk phos 290, lipase 20,027. UA with SG >1.045, positive nitrates, 2+ LE, 21-50 WBC, 4+ bacteria. CT A/P with acute interstitial pancreatitis and 1.4 cm indeterminate left adrenal nodule, likely adenoma. She was admitted for further work-up. RUQ US showed sludge within gallbladder and CT that was performed in ED showed acute pancreatitis. In-patient course: General surgery and gastroenterology consulted regarding transaminitis and acute pancreatitis, respectively. They agreed that MRCP would likely be most beneficial upon initial assessment. Con tinued IV Zosyn until MRCP can be performed with NPO status starting at midnight before the procedure. Throughout hospitalization, transaminases and bilirubin continued to trend downward. MRCP was obtained and showed acute interstitial pancreatitis with gallbladder sludge but no evidence of cholelithiasis/choledocholithiasis. General surgery assessed the patient and agreed with laparoscopic cholecystectomy with intraoperative cholangiogram. This was performed on 12/23. Gallbladder was slightly distended and filled with bile, neck of the gallbladder. Has some thick material but no evidence of gallstones. No evidence of filling defects within the biliary tree, gallbladder was removed and sent to lab for pathology. Postop day 1, patient appeared to be improving significantly. No complications from procedure. Tolerating diet well without nausea or vomiting and ambulating without assistance. Small bowel movement this morning and was able to void without difficulty. Patient other crouch hemodynamically stable and clear for discharge from surgery/GI standpoint. Plan to have her follow-up in the outpatient setting with General surgery, plan for discharge home at this time. Status at Discharge Functional status at discharge: independent ambulation Overall status at discharge: patient is back to baseline Time Spent with Patient Time attestation: Total time spent providing and/or coordinating discharge services: 34 Exam Narrative: General: NAD Eyes: EOMI ENT: neck supple Cardiovascular: Regular rate and rhythm Respiratory: Clear to auscultation, respirations even and unlabored on RA Gastrointestinal: Soft, no tenderness with palpation, negative Rice's sign Genitourinary: no suprapubic tenderness Musculoskeletal: No edema Skin: warm, dry. Incisions clean and dry with intact globes, no purulence drainage or surrounding erythema/edema Neuro: Alert. Psych: Mood appropriate DS: Data Data Completed and Pending Pending studies at discharge: Pending at discharge 12/23/24 15:56 Surgical [PTH] Routine Labs on day of discharge: Labs from last 24 hours 12/24/24 12/23/24 04:42 05:12 WBC 12.5 H RBC 3.33 L Hgb 10.1 L Hct 31.6 L MCV 94.9 MCH 30.3 MCHC 32.0 RDW 13.2 Plt Count 253 MPV 9.5 Immature Gran % (Auto) 0.6 H Neut % (Auto) 86.1 H Lymph % (Auto) 6.3 L [place] % (Auto) 6.7 Eos % (Auto) 0.1 Baso % (Auto) 0.2 Lymph # (Auto) 0.79 L [place] # (Auto) 0.8 H Eos # (Auto) 0.0 Baso # (Auto) 0.0 Abs Immat Gran (auto) 0.08 H Absolute Neuts (auto) 10.7 H Absolute Nucleated RBC 0.000 Nucleated RBC % 0.0 Sodium 136 L Potassium 4.7 Chloride 103 Carbon Dioxide 27 Anion Gap 6 BUN 9 Creatinine 0.65 L Estim Creat Clear Calc 65 Estimated GFR > 60 Glucose 126 H Calcium 8.5 Magnesium 2.0 Total Bilirubin 0.8 AST 86 H ALT 113 H Alkaline Phosphatase 155 H Total Protein 6.3 Albumin 3.3 L Lipase 583 H Preliminary micro results at discharge 12/21/24 07:44 Blood Culture - Preliminary Blood 12/21/24 07:55 Blood Culture - Preliminary Blood 12/20/24 20:36 - Preliminary Urine Clean Catch Gram negative bacilli isolated Discharge Plan Discharge Attending physician on discharge: Cornell Boogie Consulting providers: Deanne Cody; Rahul Mcgrath; Lloyd Aguilar Discharging Clinician: Rahul Mcgrath Anticipated Discharge Date/Time: 12/24/24 09:02 Patient Disposition: Home Activity: no straining and as tolerated Diet: heart healthy Discharge Instructions: DISCHARGE INSTRUCTION SHEET FOR HERNIA, GALLBLADDER AND APPENDIX SURGERIES DR. AGUILAR PATIENT TO TAKE HOME 1. May shower today, no soaking in bath x 2weeks. 2. Call office for: * Wound increasingly painful or bleeding * Vomiting * Fever of greater than 101 degrees 3. If no bowel movement for three days, take 1 oz. (30 ml) Milk of Magnesia or MiraLax 17g 1 to 2 times daily. 4. No heavy lifting > 10-15 pounds x 2 weeks for laparoscopic cholecystectomy. 5. No driving for 3 days or while taking narcotic pain medications. 6. Ice to surgical site for 48 hours (30 min on, then 30 min off). 7. Up walking 10-30 minutes three times per day. 8. Resume previous home medications. 9. Follow-up 10-14 days in office for wound check or as previously scheduled. ([phone]) 10. Oral pain medications prescription to be sent to pharmacy. Take Tylenol 500mg every 6 hours and Ibuprofen 600mg every 6 hours for the first 2 days, then as needed. 11. NUTRITION: Start out by drinking fluids and increase your diet as tolerated. If you experience nausea, try dry toast, crackers, and 7-UP. If nausea or vomiting persists, contact your surgeon?s office. 12. Gallbladders-Low Fat Diet for 2 weeks. Revised August 2018 Patient Instructions: Low Fat Diet (DC) Patient Language: Icelandic Stand Alone Forms: General Discharge Information Follow-up/Referrals: Lloyd Aguilar DO [Physician, General Surgery] - 2 Weeks Referral Note: F/u 2 weeks s/p lap colton Discharge Medications: New hydrocodone-acetaminophen 5-325 mg tablet 1 - 2 tablet PO Q4H PRN (Reason: pain) Qty: 15 0RF Continued famotidine 20 mg tablet 20 mg PO DAILY Qty: 30 0RF pantoprazole [Protonix] 40 mg tablet,delayed release (DR/EC) 40 mg PO HS 28 Days Qty: 28 0RF pravastatin 20 mg tablet 20 mg PO DAILY ascorbic acid (vitamin C) 500 mg capsule 500 mg PO DAILY cholecalciferol (vitamin D3) 1,000 unit capsule 1,000 unit PO DAILY losartan 50 mg tablet 50 mg PO DAILY Qty: 90 3RF fluticasone propionate 50 mcg/actuation spray,suspension 2 spray NASAL DAILY PRN (Reason: nasal congestion) Qty: 15.8 5RF Rx Instructions: administer into each nostril Date of admission: 12/20/24 21:11 Primary Care Provider: Heber Boss Admitting Provider: Ernesto Josue Attending physician on admission: Ernesto Josue Condition: Stable Quality VTE Prophylaxis VTE prophylaxis: mechanical ordered Hospitalist MIPS Heart Failure (Exclusion) Patient has history of Heart Transplant or Left Ventricular Assistive Device?: No IF YES, STOP HERE Heart Failure (Qualifier) Patient has current or prior documentation of LVEF less than or equal to 40%, or mod/servere depressed LVSF?: No IF NO, STOP HERE
== END 2024-12-24 10:20 | disposition home or self-care (01) | DRG 418 ==
LOC: ANHED 20:28 → ANH2MED 21:27
PROVIDERS: Nurse Practitioner; Nurse Practitioner Family; Physician Assistant; Surgery; Admitting Provider Internal Medicine; Emergency Provider Emergency Medicine; PCP Internal Medicine; Visit Provider Physician Assistant
PROC: 0FT44ZZ Resection of Gallbladder, Percutaneous Endoscopic Approach (ICD-10-PCS; CPT 47562; principal; 2024-12-23 14:30)
DX: K85.10 Biliary acute pancreatitis without necrosis or infection (principal); N39.0 Urinary tract infection, site not specified; K82.8 Other specified diseases of gallbladder; E78.5 Hyperlipidemia, unspecified; I10 Essential (primary) hypertension; K21.9 Gastro-esophageal reflux disease without esophagitis; E66.811 Obesity, class 1; B96.20 Unspecified Escherichia coli [E. coli] as the cause of diseases classified elsewhere; R74.01 Elevation of levels of liver transaminase levels; E27.9 Disorder of adrenal gland, unspecified; Z68.34 Body mass index [BMI] 34.0-34.9, adult; Z90.710 Acquired absence of both cervix and uterus
CPT/HCPCS: 36415; 74177; 74183; 74300; 76376; 76705; 80053; 81001; 83690; 83735; 85025; 85610; 85730; 87040; 87086; 88304; 96361; 96374; 96375; 96376; 99285; A9270; A9577; J0696; J1100; J1885; J2270; J2405; J2543; J2704; J3010; J3430; J7030; J7120; Q9966; Q9967